=== PATIENT | male | born 1935 | race Caucasian/White ===

== ENCOUNTER 2023-09-09 05:18 | Outpatient (REF) | payer MEDICARE, SELFPAY ==
[2023-09-09 06:32] LABS: MANUAL DIFF FLAG NO
[2023-09-09 06:50] LABS: Basophils Percent Auto 0.7 % (0-2); Eosinophils Percent Auto 0.7 % (0-4); Hematocrit 38.6 % (42.0-52.0); Imm Gran Abs Auto 0.03 X10*3/uL (0.00-0.03); Imm Gran Pct Auto 0.6 % (0.0-0.4); Lymphocytes Absolute Auto 0.8 X10*3/uL (1.2-4.9); Lymphocytes Percent Auto 14.8 % (20-40); Mean Corpuscular HGB Conc 31.1 g/dl (31.0-36.0); Mean Corpuscular Hemoglobin 27.2 pg (27.0-33.0); Mean Corpuscular Volume 87.5 fL (80.0-98.0); Mean Platelet Volume 9.3 fL (9.4-12.4); Monocytes Absolute Auto 0.7 X10*3/uL (0.1-1.2); Monocytes Percent Auto 13.8 % (2-11); Neutrophils Absolute Auto 3.7 x10*3/uL (2.0-8.3); Neutrophils Percent Auto 69.4 % (45-73); Platelet Count 216 X10*3/uL (160-400); Red Blood Count 4.41 X10*6/uL (4.60-5.80); Red Cell Distribution Width 14.7 % (11.0-16.0); White Blood Count 5.4 X10*3/uL (4.8-10.8)
[2023-09-09 06:56] LABS: Alanine Aminotransferase 18 U/L (0-40); Albumin Level 3.8 g/dL (3.5-5.0); Alkaline Phosphatase 101 U/L (39-117); Anion Gap 14 (12-20); Aspartate Amino Transferase 19 U/L (5-37); Bilirubin Total 0.4 mg/dL (0.0-1.0); Blood Urea Nitrogen 47 mg/dL (9-16); Calcium 9.3 mg/dL (8.4-10.2); Carbon Dioxide 29 mmol/L (22-29); Chloride 102 mmol/L (96-108); Cholesterol 99 mg/dL (<200); Estimated Glomerular Filt Rate 35; Glucose Fasting 81 mg/dL (60-99); HDL Cholesterol 44 mg/dL (>40); LDL Cholesterol Calculated 40 mg/dL (<100); Magnesium 2.4 mg/dL (1.6-2.6); Potassium 4.6 mmol/L (3.3-5.1); Sodium 140 mmol/L (135-145); Total Protein 7.4 g/dL (6.5-8.0); Triglycerides 77 mg/dL (<150)
[2023-09-09 09:21] LABS: Erythrocyte Sedimentation Rate 44 MM/HR (0-15)
== END 2023-09-09 05:19 | disposition home or self-care (01) ==
LOC: HO.HSH4W 05:18
PROVIDERS: Visit Provider Internal Medicine
DX: N18.9 Chronic kidney disease, unspecified (principal); G62.9 Polyneuropathy, unspecified; G72.9 Myopathy, unspecified
CPT/HCPCS: 36415; 80053; 80061; 82550; 83735; 85025; 85652

== ENCOUNTER 2023-09-18 05:41 | Outpatient (REF) | payer MEDICARE, SELFPAY ==
[2023-09-18 06:11] LABS: Anion Gap 14 (12-20); Blood Urea Nitrogen 47 mg/dL (9-16); Calcium 9.6 mg/dL (8.4-10.2); Carbon Dioxide 28 mmol/L (22-29); Chloride 101 mmol/L (96-108); Estimated Glomerular Filt Rate 35; Glucose Fasting 74 mg/dL (60-99); Potassium 4.7 mmol/L (3.3-5.1); Sodium 138 mmol/L (135-145)
== END 2023-09-18 05:42 | disposition home or self-care (01) ==
LOC: HO.HSH4W 05:41
PROVIDERS: Visit Provider Internal Medicine
DX: N18.9 Chronic kidney disease, unspecified (principal); E11.9 Type 2 diabetes mellitus without complications
CPT/HCPCS: 36415; 80048

== ENCOUNTER 2023-09-30 05:17 | Outpatient (REF) | payer MEDICARE, SELFPAY ==
[2023-09-30 06:18] LABS: Anion Gap 13 (12-20); Blood Urea Nitrogen 58 mg/dL (9-16); Carbon Dioxide 29 mmol/L (22-29); Chloride 103 mmol/L (96-108); Estimated Glomerular Filt Rate 38; Glucose Fasting 76 mg/dL (60-99); Potassium 5.4 mmol/L (3.3-5.1); Sodium 140 mmol/L (135-145)
== END 2023-09-30 05:18 | disposition home or self-care (01) ==
LOC: HO.HSH4W 05:17
PROVIDERS: Visit Provider Internal Medicine
DX: I50.9 Heart failure, unspecified (principal); N18.9 Chronic kidney disease, unspecified
CPT/HCPCS: 36415; 80048

== ENCOUNTER 2023-10-06 09:41 | Inpatient (IN) | payer MEDICARE, SELFPAY ==
[2023-10-06] VITALS (7 sets, daily range): BP systolic 123–156; BP diastolic 60–93; PULSE 62–98; RESP 17–24; TEMP 35.7–36.6; O2SAT 80–95; BMI 31.8
--- NOTE | ~2023-10-06 | CT_ITS ---
EXAMINATION: CT CHEST WITHOUT CONTRAST CLINICAL INFORMATION: Abnormal chest x-ray COMPARISON: Ultrasound retroperitoneum 05/29/2023. TECHNIQUE: Multidetector volumetric CT imaging of the chest was done. Axial MIP volume rendering provided. Sagittal and coronal reformatted images were obtained. This CT examination was performed using dose optimization techniques as appropriate, variously including the following: *Automated exposure control *Adjustment of mA and/or kV according to patient size (this includes techniques or standardized protocols for targeted exams where dose is matched to indication/reason for exam; i.e. extremities or head) *Use of iterative reconstruction technique DLP: 385 mGy-cm FINDINGS: There is continuous patient breathing artifact throughout the exam. FLOOR FRAMER: Well-inflated lungs. LUNGS: The lungs are somewhat expanded with bilateral lower lobe consolidations/atelectasis with underlying bilateral pleural effusion. Groundglass opacities are seen throughout both upper and mid lobes likely related to chronic parenchymal disease no large nodule or mass seen. Mild atelectatic stranding is seen in right upper lobe and patchy infiltrate in the right middle lobe. MEDIASTINUM: Heart size is enlarged with aortic and mitral valve calcifications. No pericardial effusion seen. Central trachea and the bronchi are widely patent. The thyroid lobes are symmetrical and normal. No abnormal size mediastinal or hilar lymph nodes seen. CORONARY ARTERY CALCIFICATION: Mild coronary artery calcification seen. PLEURA: There are bilateral small pleural effusions without calcified pleural plaques or pneumothorax. AXILLA: No lymphadenopathy. The chest wall is unremarkable. UPPER ABDOMEN: Visualized liver, spleen, pancreas and bilateral adrenal glands unremarkable. There is hyperdense 2.3 cm exophytic lesion upper pole right kidney likely a complex cyst measuring 46 also units. OSSEOUS STRUCTURES: There is mild ventral spondylosis mid and lower dorsal spine. No aggressive lytic or sclerotic process seen. CT/CT chest wo IV con IMPRESSION: 1. Bilateral lower lobe consolidations/atelectasis with underlying small bilateral pleural effusions. 2. There is a patchy infiltrate in the right middle lobe. 3. There are diffuse groundglass opacities in both upper and mid lobes likely related to chronic lung disease. 4. Mild cardiomegaly with aortic and mitral valve calcifications. 5. Hyperdense exophytic lesion upper pole right kidney likely complex cyst. On recent ultrasound there was translucency seen in this cyst suggestive of benign etiology. If clinically indicated this can be evaluated with ultrasound. Fleischner guidelines were followed.
--- NOTE | ~2023-10-06 | XR_ITS ---
EXAMINATION: XR CHEST CLINICAL INFORMATION: Follow up after diuresis. COMPARISON: Chest radiograph 10/11/2023. TECHNIQUE: Frontal view of the chest was obtained. FINDINGS: Multifocal predominantly mid and lower lung airspace opacities are slightly decreased on the left side compared to 10/11/2023. Layering pleural effusions are improved. No pneumothorax. Stable prominence of the cardiomediastinal silhouette. No displaced osseous fractures. XR/XR chest 1V IMPRESSION: Mildly improved pulmonary aeration with decreased extension of multifocal airspace opacities and decreased layering pleural effusions, changes are more noticeable in the left lung. Continued follow-up recommended.
--- NOTE | ~2023-10-06 | XR_ITS ---
EXAMINATION: XR CHEST CLINICAL INFORMATION: Dyspnea COMPARISON: 10/08/2023 TECHNIQUE: Frontal view of the chest was obtained. FINDINGS: The lungs are hypoinflated. There is overall increasing opacity in the left perihilar region and base compared to prior. Perihilar and basilar right lung opacities appear similar to possibly slightly worsened. Overall appearance is suspicious for worsening edema. No evidence of pneumothorax. Small pleural effusions are present. Cardiac silhouette is enlarged. No acute osseous findings are seen. XR/XR chest 1V IMPRESSION: Findings suspicious for worsening pulmonary edema. Small pleural effusions. Enlarged cardiac silhouette.
--- NOTE | ~2023-10-06 | XR_ITS ---
EXAMINATION: XR CHEST CLINICAL INFORMATION: Hypoxia COMPARISON: Chest x-ray October 06, 2023. CT chest October 06, 2019 TECHNIQUE: Frontal portable view of the chest was obtained. 1801 hours FINDINGS: Diffuse bilateral patchy airspace opacities with central hilar vascular congestion. Findings suggest pulmonary edema congestive heart failure. Clinically correlate. Haziness at left lung base due to left pleural effusion. No significant right pleural effusion. XR/XR chest 1V IMPRESSION: Diffuse bilateral patchy airspace opacities with central hilar vascular congestion. Findings suggest pulmonary edema congestive heart failure.
--- NOTE | ~2023-10-06 | XR_ITS ---
EXAMINATION: XR CHEST CLINICAL INFORMATION: Chest 02/26/2016 COMPARISON: None available. TECHNIQUE: Frontal view of the chest was obtained. FINDINGS: The lungs are hypoexpanded with patchy opacities in left midlung, left lower lobe and right midlung likely interstitial pneumonitis. There is increased density left lung base likely consolidation. Heart size is borderline enlarged. Pulmonary vascularity is prominent. Mild spondylosis lower dorsal spine. XR/XR chest 1V IMPRESSION: 1. Bilateral patchy opacities likely interstitial pneumonitis. There is left lower lobe consolidation. 2. There is mild cardiomegaly with mild pulmonary vascular congestion suspected. 3. The above findings are new since 02/26/2016
--- NOTE | ~2023-10-06 | XR_ITS ---
EXAMINATION: XR CHEST CLINICAL INFORMATION: Worsening oxygen saturation COMPARISON: 10/12/2023 TECHNIQUE: Frontal view of the chest was obtained. FINDINGS: Lung volumes are symmetric. There is interval increase in extensive bilateral airspace opacities compared to prior, with perihilar and basilar predominance. No appreciable pneumothorax. Small pleural effusions are present. Cardiac silhouette is enlarged without not well assessed due to the bilateral opacities. Calcification is present at the aortic arch. No acute osseous findings are seen. XR/XR chest 1V IMPRESSION: Interval increase in extensive bilateral airspace opacities compared to prior, which may represent worsening edema in the proper clinical setting. Small pleural effusions.
--- NOTE | 2023-10-06 09:58 | ED_ITS ---
HPI - SOB/Dyspnea General Chief Complaint: Dyspnea Stated Complaint: SOB 97% ON NRB, [facility] PER EMS Time Seen by Provider: 10/06/23 09:58 Source: EMS Mode of arrival: EMS Limitations: no limitations History of Present Illness HPI Narrative: This is 88 years old male presented to emergency department with shortness of breath, he arrived with high-flow oxygen and% non-rebreather mask. He has history of congestive heart failure MD elicited complaint: shortness of breath Pertinent past history: congestive heart failure Onset (ago): day(s) (1) Timing: constant Severity: severe Exacerbating factors: nothing Known history of: congestive heart failure Associated symptoms: denies other symptoms Related Data Home oxygen amount: 2 liters Home Medications Medication Instructions Recorded Confirmed acetaminophen 325 mg tablet 650 mg PO Q4H PRN Pain 03/06/23 10/06/23 aripiprazole 10 mg tablet 10 mg PO BEDTIME 03/06/23 10/06/23 bisacodyl 10 mg rectal suppository 10 mg WV DAILY PRN Constipation 03/06/23 10/06/23 clotrimazole 1 % topical cream 1 appl topical BID PRN Rash 03/06/23 10/06/23 cyanocobalamin (vitamin B-12) 1,000 mcg IM QMONTH@14 03/06/23 10/06/23 1,000 mcg/mL injection kit gabapentin 300 mg capsule 300 mg PO BID 03/06/23 10/06/23 levothyroxine 112 mcg tablet 112 mcg PO DAILY 03/06/23 10/06/23 loperamide 2 mg tablet 2 mg PO QID PRN Diarrhea 03/06/23 10/06/23 (Anti-Diarrheal (loperamide)) magnesium hydroxide 400 mg/5 mL 2,400 mg PO BEDTIME PRN Laxative 03/06/23 10/06/23 oral suspension (Dulcolax Effect (magnesium hydroxide)) metformin 500 mg tablet 500 mg PO DAILY 03/06/23 10/06/23 nifedipine 30 mg tablet,extended 30 mg PO DAILY 03/06/23 10/06/23 release nifedipine 60 mg tablet,extended 60 mg PO DAILY 03/06/23 10/06/23 release polyvinyl alcohol 1.4 % eye drops 1 drp ophthalmic (eye) TID-QID PRN 03/06/23 10/06/23 Dry Eyes sodium phosphates 19 gram-7 133 ml WV DAILY PRN Constipation 03/06/23 10/06/23 gram/118 mL enema (Fleet Enema) aripiprazole 30 mg tablet 30 mg PO DAILY 10/06/23 10/06/23 atorvastatin 40 mg tablet 40 mg PO BEDTIME 10/06/23 10/06/23 dapagliflozin propanediol 5 mg 5 mg PO DAILY 10/06/23 10/06/23 tablet (Farxiga) gabapentin 400 mg capsule 400 mg PO BEDTIME 10/06/23 10/06/23 lamotrigine 25 mg tablet 50 mg PO DAILY 10/06/23 10/06/23 lidocaine 4 % topical patch 2 patch topical DAILY PRN Pain 10/06/23 10/06/23 torsemide 20 mg tablet 20 mg PO DAILY@1700 10/06/23 10/06/23 torsemide 40 mg tablet 40 mg PO DAILY@0600 10/06/23 10/06/23 Allergies Allergy/AdvReac Type Severity Reaction Status Date / Time No Known Allergies Allergy Mild NONE Verified 03/05/23 20:39 Review of Systems 2 Constitutional: Constitutional: Reports no additional constitutional complaints ENT: Reports system reviewed and no additional complaints, except as documented Cardiovascular: Cardiovascular: Reports dyspnea Respiratory: Respiratory: Reports dyspnea PMFSH Past Medical History Attestation statement: The following information was validated with the patient. Source: unable to obtain Medical History Unspecified hearing loss, unspecified ear Spinal stenosis, lumbar region without neurogenic claudication Spinal stenosis, 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 Constipation, unspecified Diarrhea, unspecified Spondylosis without myelopathy or radiculopathy, lumbar region Unspecified dementia, unspecified severity, without behavioral disturbance, psychotic disturbance, mood disturbance, and anxiety Other intervertebral disc degeneration, lumbar region Schizoaffective disorder, unspecified Impacted cerumen, left ear Unspecified osteoarthritis, unspecified site Chronic kidney disease, stage 3 unspecified Type 2 diabetes mellitus without complications Gastro-esophageal reflux disease without esophagitis Personal history of COVID-19 Bradycardia, unspecified Cyst of kidney, acquired Deficiency of other specified B group vitamins Type 2 diabetes mellitus with diabetic neuropathy, unspecified Hyperlipidemia, unspecified Other schizophrenia Iron deficiency anemia, unspecified Vertebral artery compression syndromes, site unspecified Other spondylosis with radiculopathy, lumbar region Anemia, unspecified Nutritional anemia, unspecified Radiculopathy, lumbar region Essential (primary) hypertension Benign prostatic hyperplasia without lower urinary tract symptoms Anterior spinal artery compression syndromes, lumbar region Schizophrenia, unspecified Low back pain, unspecified Obesity, unspecified Dorsalgia, unspecified Hypothyroidism, unspecified Diabetes Social History Social History Alcohol intake: unknown Smoked in Last 30 Days: No Use of substances other than those prescribed or required for medical reasons: No Advance Directives: Yes Advance Directives on File: Yes Advance Directives Date on File: 10/06/23 Physical Exam 2 Vital Signs: Vital Signs: Last Vital Signs Temp 97.7 F 10/06/23 09:59 Pulse 63 10/06/23 15:51 Resp 20 10/06/23 15:51 BP 129/93 H 10/06/23 14:18 Pulse Ox 92 10/06/23 14:18 O2 Del Method Nasal Cannula 10/06/23 14:18 O2 Flow Rate 6 10/06/23 14:18 Oxygen Flow Rate 15 10/06/23 09:47 BMI result Body Mass Index 31.8 Const: General: cooperative Nutritional Appearance: well nourished O rientation/consciousness: patient oriented x3 Limitations: no limitations HEENT: Head: Yes normal to inspection General nose exam: Normal external nose present Face and sinus: Yes normal facial exam Mouth: Normal oral and palatal mucosa present Neck: Neck: Yes normal visual inspection and Yes full ROM Chest: Chest palpation & inspection: normal inspection of the chest Resp: Effort & Inspection: decreased respiratory effort Auscultation: r honchi Cardio: Jugular venous distension: no JVD Rate: regular rate Rhythm: r egular rhythm GI: Inspection: Yes normal to inspection Palpation (GI): Soft to palpation, not firm and nontender Skin: General skin exam: no rashes or lesions noted Lesions: no lesions Rashes: no rashes Neuro: General: patient oriented x3 Medications Administered Generic Name Dose Route Start Last Admin Trade Name Freq PRN Reason Stop Dose Admin Albuterol/Ipratropium 3 ml 10/06/23 16:00 10/06/23 15:50 Albuterol/Iprat 2.5/0.5mg 3 Ml Ampul.Neb INHALE 3 ml RQ4H WHILE AWAKE MYRON Administration Enoxaparin Sodium 30 mg 10/06/23 15:15 10/06/23 15:48 Enoxaparin Sodium 30 Mg/0.3 Ml Syringe SUBCUT 30 mg Q24H MYRON Administration Piperacillin Sod/Tazobactam 100 mls @ 200 mls/hr 10/06/23 15:30 10/06/23 15:48 Sod 4.5 gm/ Sodium Chloride IV 200 mls/hr Q8H MYRON Administration Sodium Chloride 3 ml 10/06/23 16:00 10/06/23 15:51 0.9 % Sodium Chloride Flush 3 Ml Syringe IVFLUSH Not Given QSHIFT MYRON Discontinued Medications Generic Name Dose Route Start Last Admin Trade Name Freq PRN Reason Stop Dose Admin Furosemide 40 mg 10/06/23 10:09 10/06/23 10:18 Furosemide 40 Mg/4 Ml Vial IVPUSH 10/06/23 10:10 40 mg ONCE ONE Administration Protocol Medical Decision Making Medical Decision Making [facility] Narrative: Patient presents to the emergency department with a chief complaint of shortness of breath by ambulance on high-flow oxygen, will obtain chest x-ray EKG labs reassess working diagnosis congestive heart failure Differential Diagnosis Differential Diagnoses: The differential diagnosis associated with the presentation includes CHF/pneumonia/COVID Admission/Observation Consideration of admission/observation: Escalation of care including admission/observation considered Lab Data 10/06/23 10:02 10/06/23 10:02 Labs: Lab Results 10/06/23 10/06/23 Range/Units 10:02 10:05 WBC 6.8 (4.8-10.8) X10*3/uL RBC 4.56 L (4.60-5.80) X10*6/uL Hgb 12.3 L (14.0-18.0) g/dl Hct 41.2 L (42.0-52.0) % MCV 90.4 (80.0-98.0) fL MCH 27.0 (27.0-33.0) pg MCHC 29.9 L (31.0-36.0) g/dl RDW 15.4 (11.0-16.0) % Plt Count 201 (160-400) X10*3/uL MPV 9.1 L (9.4-12.4) fL Immature Gran % (Auto) 1.0 H (0.0-0.4) % Neut % (Auto) 82.6 H (45-73) % Lymph % (Auto) 6.7 L (20-40) % Rock % (Auto) 8.4 (2-11) % Eos % (Auto) 0.6 (0-4) % Baso % (Auto) 0.7 (0-2) % Lymph # (Auto) 0.5 L (1.2-4.9) X10*3/uL Rock # (Auto) 0.6 (0.1-1.2) X10*3/uL Eos # (Auto) 0.0 (0.0-0.4) X10*3/uL Baso # (Auto) 0.1 (0.0-0.2) X10*3/uL Abs Immat Gran (auto) 0.07 H (0.00-0.03) X10*3/uL Absolute Neuts (auto) 5.6 (2.0-8.3) x10*3/uL Absolute Nucleated RBC 0.000 (0.0-0.012) X10*3/uL Nucleated RBC % (auto) 0.0 (0.0-0.2) /100WBC PT 11.9 (11.1-13.3) SEC INR 1.0 (0.9-1.1) Hold Blue Top SEE NOTE Sodium 138 (135-145) mmol/L Potassium 5.1 (3.3-5.1) mmol/L Chloride 98 (96-108) mmol/L Carbon Dioxide 32 H (22-29) mmol/L Anion Gap 13 (12-20) BUN 45 H (9-16) mg/dL Creatinine 1.87 H (0.5-1.4) mg/dL Estim Creat Clear Calc 30.8 Estimated GFR 34 Random Glucose 107 (60-115) mg/dL Calcium 9.9 D (8.4-10.2) mg/dL Total Bilirubin 0.6 (0.0-1.0) mg/dL AST 17 (5-37) U/L ALT 17 (0-40) U/L Alkaline Phosphatase 131 H (39-117) U/L Troponin I High Sens 10.4 (<3.5-35.0) ng/L B-Natriuretic Peptide 121 H (<100) pg/mL Total Protein 8.7 H (6.5-8.0) g/dL Albumin 4.4 (3.5-5.0) g/dL Influenza Type A (PCR) NEGATIVE (Negative) Influenza Type B (PCR) NEGATIVE (Negative) RSV RNA Qual (PCR) NEGATIVE (Negative) SARS-CoV-2 RNA (RT-PCR) NEGATIVE (Negative) Critical Care Time Critical Care Time Critical Care Time: Yes Total Critical Care Time: 60 Attestation: SOB requiring high flow 02 Discharge Plan Discharge Clinical Impression: Shortness of breath Pneumonia Qualifiers: Pneumonia type: due to unspecified organism Patient Disposition: Admitted As Inpatient
--- NOTE | 2023-10-06 10:00 | ECG_ITS ---
Test Reason : CHEST PAIN Blood Pressure : / mmHG Vent. Rate : 069 BPM Atrial Rate : 069 BPM P-R Int : 214 ms QRS Dur : 168 ms QT Int : 430 ms P-R-T Axes : -20 -21 017 degrees QTc Int : 460 ms Sinus rhythm with 1st degree A-V block Right bundle branch block Abnormal ECG When compared with ECG of 24-FEB-2016 06:31, No significant changes seen Referred By: Anam Fulton Electronically Signed By:KELLEY ESPINOSA
--- NOTE | 2023-10-06 10:08 | PC.NURSE ---
Pt presents to ED from [facility] via EMS. EMS reports staff found pts SPO2 to be in the 80s this morning on his baseline 2L O2. Pt has hx of CHF. EMS placed pt on 15L via NRB with improvements to high 90s. Pt reports cough and SOB this morning, denies any pain. Pt denies fever, chills, N/V/D. Pt alert and oriented, breathing even and noted to be labored, pt has difficulty speaking in full sentences. Skin clammy. Pt placed on bedside security monitor, NSR. RA SPO2 noted to be 79%, per MD pt placed on NC at 5L O2 and improves to 88-90%. No pitting edema noted to bilat lower legs.
[2023-10-06 10:09] LABS: MANUAL DIFF FLAG NO
[2023-10-06 10:12] LABS: Basophils Absolute Auto 0.1 X10*3/uL (0.0-0.2); Basophils Percent Auto 0.7 % (0-2); Eosinophils Percent Auto 0.6 % (0-4); Hematocrit 41.2 % (42.0-52.0); Hemoglobin 12.3 g/dl (14.0-18.0); Imm Gran Abs Auto 0.07 X10*3/uL (0.00-0.03); Lymphocytes Absolute Auto 0.5 X10*3/uL (1.2-4.9); Lymphocytes Percent Auto 6.7 % (20-40); Mean Corpuscular HGB Conc 29.9 g/dl (31.0-36.0); Mean Corpuscular Volume 90.4 fL (80.0-98.0); Mean Platelet Volume 9.1 fL (9.4-12.4); Monocytes Absolute Auto 0.6 X10*3/uL (0.1-1.2); Monocytes Percent Auto 8.4 % (2-11); Neutrophils Absolute Auto 5.6 x10*3/uL (2.0-8.3); Neutrophils Percent Auto 82.6 % (45-73); Platelet Count 201 X10*3/uL (160-400); Red Blood Count 4.56 X10*6/uL (4.60-5.80); Red Cell Distribution Width 15.4 % (11.0-16.0); White Blood Count 6.8 X10*3/uL (4.8-10.8)
[2023-10-06] MEDS: Furosemide 40 MG/4 ML VIAL IVPUSH (10:18)
[2023-10-06 10:20] LABS: Prothrombin Time 11.9 SEC (11.1-13.3)
[2023-10-06 10:28] LABS: Alanine Aminotransferase 17 U/L (0-40); Albumin Level 4.4 g/dL (3.5-5.0); Alkaline Phosphatase 131 U/L (39-117); Anion Gap 13 (12-20); Aspartate Amino Transferase 17 U/L (5-37); Bilirubin Total 0.6 mg/dL (0.0-1.0); Blood Urea Nitrogen 45 mg/dL (9-16); Calcium 9.9 mg/dL (8.4-10.2); Carbon Dioxide 32 mmol/L (22-29); Chloride 98 mmol/L (96-108); Creatinine Clr Calc Pharmacy 30.8; Estimated Glomerular Filt Rate 34; Glucose Random 107 mg/dL (60-115); Potassium 5.1 mmol/L (3.3-5.1); Sodium 138 mmol/L (135-145); Total Protein 8.7 g/dL (6.5-8.0)
[2023-10-06 10:33] LABS: B Type Natriuretic Peptide 121 pg/mL (<100)
[2023-10-06 10:35] LABS: Troponin-I High Sensitivity 10.4 ng/L (<3.5-35.0)
[2023-10-06 10:48] LABS: Influenza A PCR NEGATIVE (Negative); Influenza B PCR NEGATIVE (Negative); Resp Syncy Virus RNA Qual PCR NEGATIVE (Negative); SARS COV2 PCR INHOUSE NEGATIVE (Negative)
--- NOTE | 2023-10-06 11:51 | PC.NURSE ---
Pt sleeping in bed at this time, appears comfortable. No acute resp distress noted, SPO2 on 5L NC maintaining 92-94%.
--- NOTE | 2023-10-06 12:09 | PC.NURSE ---
Pt taken to CT scan
--- NOTE | 2023-10-06 12:41 | PC.NURSE ---
Pt placed on nascimento w/ humidification d/t 5-6L NC requirement, Pt tolerating well at this time, currently resting comfortably, sating 88-92%
--- NOTE | 2023-10-06 15:21 | P.HPHOSP_ITS ---
<Statement entered by Ela Ibarra MD - 10/06/23 16:18> The patient was seen and evaluated with PAULINO Finney. I agree with her note, assessment and plan with the following. In summary, An 88 years old lady with PMH of CKD3, DM2, gout, dementia among others who presents with dyspnea and SOB. [facility] she was noted to have O2 sat in 80s%. CT scan showing bilateral infitrates with effusions. admitted for further eval. # Acute hypoxemic respiratory failure 2/2 bilateral pneumonia risk of aspiration, aspiration precautions pending cultures IV zosyn Duonebs Lasix for the effusion Wean O2 down as tolerated Rest of evaluations by PAULINO note. History of Present Illness Date of Service: 10/06/23 Attending physician on admission: Ela Ibarra Chief Complaint: sob, hypoxia 88 year old male with hitory of non insulin dependent type 2 diabetes, htn, hypothyroidism, lumbar stenosis, lumbar ddd, ckd stage 3, gout, gerd, schizoaffective disorder, unspecified dementia who is a former smoker presented to the ED from [facility] for evaluation of dyspnea and hypoxia. The patient is a poor historian 2/2 to his dementia but does report dyspnea ongoing for several weeks. unknown sick contacts. No fevers, chills, cough, chest pain. No abd pain, n/v. Per EMS, on arrival, pt hypoxic in the 80s placed on 15L via non rebreather. On arrival to ED, pt weaned to 6L O2 via NC maintaining oximetry 92%. Vitals otherwise stable. No leukocytosis. Stable normocytic anemia. Renal function baseline. Lytes normal. BNP 121, trop below detectable limits. Negative for Flu, RSV, COVID19. Chest CT shows bilateral lower lobe consolidations with underlying small bilateral pleural effusions as well as patchy infiltrate RML. Groundglass opacities present in BUL and mid lobes r/t chronic lung disease. In the ED given 40mg IV lasix and started on empiric abx. Review of Systems 2 Review of Systems: General: No fevers, malaise, unintentional weight loss HEENT: No blurred vision, diplopia. No sore throat, nasal congestion, rhinorrhea, sinus pain, ear pain Cardiovascular: No chest pain, palpitations, or leg edema Respiratory: +dyspnea. No wheezing, cough GI: No abdominal pain, nausea, vomiting, diarrhea, constipation, melena, hematochezia : No dysuria, hematuria, increased urinary frequency, decreased urinary output MSK: No myalgia, back pain Neuro: No headaches, weakness, paresthesias Skin: No rashes or lesions [facility] Medical History (Updated 10/06/23 @ 16:11 by PAULINO Finney) Acute hypoxemic respiratory failure Unspecified hearing loss, unspecified ear Spinal stenosis, lumbar region without neurogenic claudication Spinal stenosis, 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 Constipation, unspecified Diarrhea, unspecified Spondylosis without myelopathy or radiculopathy, lumbar region Unspecified dementia, unspecified severity, without behavioral disturbance, psychotic disturbance, mood disturbance, and anxiety Other intervertebral disc degeneration, lumbar region Schizoaffective disorder, unspecified Impacted cerumen, left ear Unspecified osteoarthritis, unspecified site Chronic kidney disease, stage 3 unspecified Type 2 diabetes mellitus without complications Gastro-esophageal reflux disease without esophagitis Personal history of COVID-19 Bradycardia, unspecified Cyst of kidney, acquired Deficiency of other specified B group vitamins Type 2 diabetes mellitus with diabetic neuropathy, unspecified Hyperlipidemia, unspecified Other schizophrenia Iron deficiency anemia, unspecified Vertebral artery compression syndromes, site unspecified Other spondylosis with radiculopathy, lumbar region Anemia, unspecified Nutritional anemia, unspecified Radiculopathy, lumbar region Essential (primary) hypertension Benign prostatic hyperplasia without lower urinary tract symptoms Anterior spinal artery compression syndromes, lumbar region Schizophrenia, unspecified Low back pain, unspecified Obesity, unspecified Dorsalgia, unspecified Hypothyroidism, unspecified Diabetes Social History Alcohol intake: unknown Smoked in Last 30 Days: No Use of substances other than those prescribed or required for medical reasons: No Advance Directives: Yes Advance Directives on File: Yes Advance Directives Date on File: 10/06/23 Meds Allergies Allergy/AdvReac Type Severity Reaction Status Date / Time No Known Allergies Allergy Mild NONE Verified 03/05/23 20:39 Home Medications Medication Instructions Recorded Confirmed Last Taken Type acetaminophen 325 mg tablet 650 mg PO Q4H PRN Pain 03/06/23 10/06/23 Unknown History aripiprazole 10 mg tablet 10 mg PO BEDTIME 03/06/23 10/06/23 Unknown History bisacodyl 10 mg rectal suppository 10 mg NC DAILY PRN Constipation 03/06/23 10/06/23 Unknown History clotrimazole 1 % topical cream 1 appl topical BID PRN Rash 03/06/23 10/06/23 Unknown History cyanocobalamin (vitamin B-12) 1,000 mcg IM QMONTH@14 03/06/23 10/06/23 Unknown History 1,000 mcg/mL injection kit gabapentin 300 mg capsule 300 mg PO BID 03/06/23 10/06/23 Unknown History levothyroxine 112 mcg tablet 112 mcg PO DAILY 03/06/23 10/06/23 Unknown History loperamide 2 mg tablet 2 mg PO QID PRN Diarrhea 03/06/23 10/06/23 Unknown History (Anti-Diarrheal (loperamide)) magnesium hydroxide 400 mg/5 mL 2,400 mg PO BEDTIME PRN Laxative 03/06/23 10/06/23 Unknown History oral suspension (Dulcolax Effect (magnesium hydroxide)) metformin 500 mg tablet 500 mg PO DAILY 03/06/23 10/06/23 Unknown History nifedipine 30 mg tablet,extended 30 mg PO DAILY 03/06/23 10/06/23 Unknown History release nifedipine 60 mg tablet,extended 60 mg PO DAILY 03/06/23 10/06/23 Unknown History release polyvinyl alcohol 1.4 % eye drops 1 drp ophthalmic (eye) TID-QID PRN 03/06/23 10/06/23 Unknown History Dry Eyes sodium phosphates 19 gram-7 133 ml NC DAILY PRN Constipation 03/06/23 10/06/23 Unknown History gram/118 mL enema (Fleet Enema) aripiprazole 30 mg tablet 30 mg PO DAILY 10/06/23 10/06/23 Unknown History atorvastatin 40 mg tablet 40 mg PO BEDTIME 10/06/23 10/06/23 Unknown History dapagliflozin propanediol 5 mg 5 mg PO DAILY 10/06/23 10/06/23 Unknown History tablet (Farxiga) gabapentin 400 mg capsule 400 mg PO BEDTIME 10/06/23 10/06/23 Unknown History lamotrigine 25 mg tablet 50 mg PO DAILY 10/06/23 10/06/23 Unknown History lidocaine 4 % topical patch 2 patch topical DAILY PRN Pain 10/06/23 10/06/23 Unknown History torsemide 20 mg tablet 20 mg PO DAILY@1700 10/06/23 10/06/23 Unknown History torsemide 40 mg tablet 40 mg PO DAILY@0600 10/06/23 10/06/23 Unknown History Physical Exam 2 Vital Signs and Narrative: Vital Signs: Last Vital Signs Temp 97.7 F 10/06/23 09:59 Pulse 68 10/06/23 14:18 Resp 17 10/06/23 14:18 BP 129/93 H 10/06/23 14:18 Pulse Ox 92 10/06/23 14:18 O2 Del Method Nasal Cannula 10/06/23 14:18 O2 Flow Rate 6 10/06/23 14:18 Oxygen Flow Rate 15 10/06/23 09:47 BMI result Body Mass Index 31.8 Constitutional - Awake and Alert, No apparent distress Eyes - PERRLA, EOMI Cardiovascular - S1S2, RRR, No edema Respiratory - Normal lung expansion, Normal respiratory effort, No respiratory distress, bilateral rhonchi with scattered expiratory wheezing Gastrointestinal - NT / ND; +BS; No rebound or guarding Extremities - no calf tenderness bilaterally, no swelling Skin - Warm/Dry Neurological - Alert & oriented x3 Psychological - Appropriate affect Results Labs 10/06/23 10:02 10/06/23 10:02 Labs: Laboratory Results - last 24 hr 10/06/23 10/06/23 10:02 10:05 MCV 90.4 MCH 27.0 MCHC 29.9 L RDW 15.4 Plt Count 201 MPV 9.1 L Immature Gran % (Auto) 1.0 H Neut % (Auto) 82.6 H Lymph % (Auto) 6.7 L Jenkins % (Auto) 8.4 Eos % (Auto) 0.6 Baso % (Auto) 0.7 Lymph # (Auto) 0.5 L Jenkins # (Auto) 0.6 Eos # (Auto) 0.0 Baso # (Auto) 0.1 Abs Immat Gran (auto) 0.07 H Absolute Neuts (auto) 5.6 Absolute Nucleated RBC 0.000 Nucleated RBC % (auto) 0.0 PT 11.9 INR 1.0 Hold Blue Top SEE NOTE Anion Gap 13 Estim Creat Clear Calc 30.8 Estimated GFR 34 Random Glucose 107 Calcium 9.9 D Total Bilirubin 0.6 AST 17 ALT 17 Alkaline Phosphatase 131 H Troponin I High Sens 10.4 B-Natriuretic Peptide 121 H Total Protein 8.7 H Albumin 4.4 Influenza Type A (PCR) NEGATIVE Influenza Type B (PCR) NEGATIVE RSV RNA Qual (PCR) NEGATIVE SARS-CoV-2 RNA (RT-PCR) NEGATIVE Imaging Radiologist's Impressions: Impressions Chest X-Ray 10/06/23 10:20 IMPRESSION: 1. Bilateral patchy opacities likely interstitial pneumonitis. There is left lower lobe consolidation. 2. There is mild cardiomegaly with mild pulmonary vascular congestion suspected. 3. The above findings are new since 02/26/[address] 10/06/23 12:28 IMPRESSION: 1. Bilateral lower lobe consolidations/atelectasis with underlying small bilateral pleural effusions. 2. There is a patchy infiltrate in the right middle lobe. 3. There are diffuse groundglass opacities in both upper and mid lobes likely related to chronic lung disease. 4. Mild cardiomegaly with aortic and mitral valve calcifications. 5. Hyperdense exophytic lesion upper pole right kidney likely complex cyst. On recent ultrasound there was translucency seen in this cyst suggestive of benign etiology. If clinically indicated this can be evaluated with ultrasound. Fleischner guidelines were followed. Assessment and Plan (1) Pneumonia: Qualifiers: Laterality: bilateral Lung location: unspecified part of lung P neumonia type: due to unspecified organism Qualified Code(s): J18.9 - Pneumonia, unspecified organism Status: Acute (2) Acute hypoxemic respiratory failure: Status: Acute Plan 88 year old male with hitory of non insulin dependent type 2 diabetes, htn, hypothyroidism, lumbar stenosis, lumbar ddd, ckd stage 3, gout, gerd, schizoaffective disorder, unspecified dementia admitted for bilateral pneumonia with acute hypoxemic respiratory failure. #bilateral pneumonia with acute hypoxemic respiratory failure -chest ct shows bilateral lower lobe consolidations and RML infiltrate. Groundglass opacities b/l possible chronic lung disease (outpt follow up) -IV zosyn -mrsa nasal swab, strep pneumo ag, legionella ag, sputum culture pending -symptomatic management -duonebs -monitor cbc, cultures #Non insulin depedent type 2 diabetes -poc glucose, diabetic diet -humalog sliding scale -hold oral antihyperglycemics #HTN -bp reasonably controlled -continue nifedipine, torsemide # chronic low back pain -continue gabapentin, lidocaine patch #Hypothyroidism -continue levothyroxine # hyperlipidemia -continue statin #Chronic normocytic anemia -h/h above transfusion threshold and consistent with baseline # unspecified dementia with mood disturbance -continue home meds DVT prophylaxis-Lovenox DNR/DNI Patient requires inpatient stay at least 2 midnights for management of acute bilateral pneumonia with acute hypoxemic respiratory failure requiring IV antibiotics and supplemental O2 Quality Stroke Does the patient have a stroke diagnosis?: No VTE Prior VTE?: No VTE Risk Level:: Medical - moderate - high VTE Device Contraindication: Treatment Not Indicated VTE Drug Contraindication: N/A - Med Ordered
[2023-10-06] MEDS: Piperacillin Sodium/Tazobactam 4.5 GM in 0.9 % Sodium Chloride 100 ML IV (15:48)
[2023-10-06] MEDS: Enoxaparin Sodium 30 MG/0.3 ML SYRINGE SUBCUT (15:48)
[2023-10-06] MEDS: Albuterol/Iprat 2.5/0.5MG 3 ML AMPUL.NEB INHALE ×2 (15:50→20:11)
--- NOTE | 2023-10-06 16:46 | PHA.MEDREC ---
Pharmacy Consult ? Medication Reconciliation Pharmacy has completed the medication reconciliation. Confirmed medication with Med list from [facility] with list printed 10/06/23.
--- NOTE | 2023-10-06 19:31 | PC.NURSE ---
assumed care of pt at 1900, O2 desatting to 78% - on exam pt disconnected O2 line - reconnected, O2 improved to low 90s on 6L humidified O2. pt denies any pain at this time. understands need for urine sample. pt pending bed assignment.
[2023-10-06 21:36] LABS: Glucose, Whole Blood 152 mg/dL (60-115)
[2023-10-06] MEDS: ARIPiprazole 10 MG TABLET PO (21:41)
[2023-10-06] MEDS: Insulin Lispro 100 UNIT/ML 3 ML VIAL SUBCUT (21:41)
[2023-10-06] MEDS: Gabapentin 400 MG CAPSULE PO (21:41)
[2023-10-06] MEDS: Atorvastatin Calcium 40 MG TABLET PO (21:41)
[2023-10-07] VITALS (8 sets, daily range): BP systolic 123–148; BP diastolic 60–70; PULSE 67–86; RESP 17–20; TEMP 36.1–37; O2SAT 91–92
[2023-10-07] MEDS: Piperacillin Sodium/Tazobactam 4.5 GM in 0.9 % Sodium Chloride 100 ML IV ×4 (00:03→22:45)
[2023-10-07] MEDS: 0.9 % Sodium Chloride Flush 3 ML SYRINGE IVFLUSH ×4 (00:09→23:30)
[2023-10-07 05:39] LABS: MANUAL DIFF FLAG NO
[2023-10-07 05:47] LABS: Basophils Percent Auto 0.6 % (0-2); Eosinophils Percent Auto 0.5 % (0-4); Hematocrit 36.4 % (42.0-52.0); Imm Gran Abs Auto 0.03 X10*3/uL (0.00-0.03); Imm Gran Pct Auto 0.5 % (0.0-0.4); Lymphocytes Absolute Auto 0.4 X10*3/uL (1.2-4.9); Lymphocytes Percent Auto 5.9 % (20-40); Mean Corpuscular HGB Conc 30.2 g/dl (31.0-36.0); Mean Corpuscular Volume 89.4 fL (80.0-98.0); Mean Platelet Volume 9.1 fL (9.4-12.4); Monocytes Absolute Auto 0.6 X10*3/uL (0.1-1.2); Monocytes Percent Auto 8.9 % (2-11); Neutrophils Absolute Auto 5.3 x10*3/uL (2.0-8.3); Neutrophils Percent Auto 83.6 % (45-73); Platelet Count 182 X10*3/uL (160-400); Red Blood Count 4.07 X10*6/uL (4.60-5.80); Red Cell Distribution Width 15.6 % (11.0-16.0); White Blood Count 6.3 X10*3/uL (4.8-10.8)
[2023-10-07 06:02] LABS: Anion Gap 12 (12-20); Blood Urea Nitrogen 41 mg/dL (9-16); Calcium 9.3 mg/dL (8.4-10.2); Carbon Dioxide 35 mmol/L (22-29); Chloride 99 mmol/L (96-108); Creatinine Clr Calc Pharmacy 32.4; Estimated Glomerular Filt Rate 36; Glucose Random 72 mg/dL (60-115); Potassium 5.4 mmol/L (3.3-5.1); Sodium 141 mmol/L (135-145)
[2023-10-07] MEDS: Gabapentin 300 MG CAPSULE PO (06:02)
[2023-10-07] MEDS: Levothyroxine Sodium 112 MCG TABLET PO (06:02)
[2023-10-07] MEDS: Torsemide 20 MG TABLET 40 MG PO (06:02)
[2023-10-07] MEDS: Albuterol/Iprat 2.5/0.5MG 3 ML AMPUL.NEB INHALE ×4 (07:38→20:11)
[2023-10-07 07:40] LABS: Glucose, Whole Blood 71 mg/dL (60-115)
[2023-10-07] MEDS: Sodium Zirconium Cyclosilicate 10 GM POWD.PACK PO (07:53)
--- NOTE | 2023-10-07 09:42 | MHC.CM.PN ---
PT W/ DX DEMENTIA & SCHIZOPHRENIA. 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 IMM VERBALLY DELIVERED - COPY TO BE MAILED. 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 AMBULATES W/ A WALKER, USES W/C PRN. DEPENDENT IN ALL CARE. PCP DIONNE TRAORE MD HCP & MOLST ON FILE DP: RESUME LTC @ [facility] VIA BLS. CM WILL CONTINUE TO FOLLOW.
[2023-10-07] MEDS: ARIPiprazole 30 MG TABLET PO (10:12)
[2023-10-07] MEDS: lamoTRIgine 25 MG TABLET 50 MG PO (10:12)
[2023-10-07] MEDS: NIFEdipine ER 90 MG TAB.ER.24 PO (10:12)
--- NOTE | 2023-10-07 10:48 | HO.PM.IMPN ---
Subjective Subjective Date of Service: 10/07/23 Interval History: Seen and evaluated this morning Feels generally better Dyspnea improved Denies fever or chills tolerating diet On O2 supplement Review of Systems Review of Systems: Yes all other systems are reviewed and are negative Physical Exam Vital Signs: Vital Signs: Last Vital Signs Temp 98.2 F 10/07/23 07:40 Pulse 86 10/07/23 07:43 Resp 20 10/07/23 07:43 BP 148/69 H 10/07/23 07:40 Pulse Ox 92 10/07/23 07:40 O2 Del Method Nasal Cannula 10/07/23 07:40 O2 Flow Rate 7.0 10/07/23 07:40 Oxygen Flow Rate 15 10/06/23 09:47 BMI result Body Mass Index 31.8 Const: Other: Constitutional : Awake, interactive, not in distress Neck : Normal inspection, Supple Cardiovascular : RRR, no JVP, no lower extremity edema Respiratory : fair bilateral air entry, basal fine crackles bilaterally, no wheezes , On O2 supplement Gastrointestinal: soft, lax, Normal bowel sounds, Non tender Skin : Warm, Dry Neurological : Alert & oriented to self and place only, No focal deficit Objective Data Active Medications Acetaminophen (Acetaminophen 325 Mg Tablet) 650 mg PO Q6H PRN PRN Reason: Pain, Mild (Pain Scale 1-3) Albuterol/Ipratropium (Albuterol/Iprat 2.5/0.5mg 3 Ml Ampul.Neb) 3 ml INHALE RQ4H WHILE AWAKE [facility] Last Admin: 10/07/23 07:38 Dose: 3 ml Documented By: HUE Aripiprazole (Aripiprazole 10 Mg Tablet) 10 mg PO BEDTIME [facility] Last Admin: 10/06/23 21:41 Dose: 10 mg Documented By: LISET Aripiprazole (Aripiprazole 30 Mg Tablet) 30 mg PO DAILY [facility] Last Admin: 10/07/23 10:12 Dose: 30 mg Documented By: ANDERSON Artificial Tears (Artificial Tears 15 Ml Drops) 1 drop EYE-BOTH QID PRN PRN Reason: Dry Eyes Atorvastatin Calcium (Atorvastatin Calcium 40 Mg Tablet) 40 mg PO BEDTIME [facility] Last Admin: 10/06/23 21:41 Dose: 40 mg Documented By: LISET Bisacodyl (Bisacodyl 10 Mg Supp.Rect) 10 mg [place] DAILY PRN PRN Reason: Constipation Cyanocobalamin (Cyanocobalamin (Vitamin B-12) 1,000 Mcg/Ml Vial) 1,000 mcg IM Q28D [facility] Dextrose (Dextrose 50 % 25 Gm/50 Ml Syringe) 25 gm IVPUSH Q15M PRN; Protocol PRN Reason: per Hypoglycemia Standing Ord. Enoxaparin Sodium (Enoxaparin Sodium 30 Mg/0.3 Ml Syringe) 30 mg SUBCUT Q24H [facility] Last Admin: 10/06/23 15:48 Dose: 30 mg Documented By: SIM Gabapentin (Gabapentin 300 Mg Capsule) 300 mg PO DAILY@0600 [facility] Last Admin: 10/07/23 06:02 Dose: 300 mg Documented By: MIGUEL Gabapentin (Gabapentin 400 Mg Capsule) 400 mg PO BEDTIME [facility] Last Admin: 10/06/23 21:41 Dose: 400 mg Documented By: RICCODENL Glucose (Glucose Gel 15 Gm Gel..Gram.) 15 gm PO Q15M PRN; Protocol PRN Reason: per Hypoglycemia Standing Ord. Piperacillin Sod/Tazobactam (Sod 4.5 gm/ Sodium Chloride) 100 mls @ 200 mls/hr IV Q8H [facility] Last Infusion: 10/07/23 08:56 Dose: Infused Documented By: ANDERSON Insulin Human Lispro (Insulin Lispro 100 Unit/Ml 3 Ml Vial) 0 unit SUBCUT QIDACHS [facility]; Protocol Last Admin: 10/07/23 07:44 Dose: Not Given Documented By: ANDERSON Non-Admin Reason: No Insulin Coverage Lamotrigine (Lamotrigine 25 Mg Tablet) 50 mg PO DAILY [facility] Last Admin: 10/07/23 10:12 Dose: 50 mg Documented By: ANDERSON Levothyroxine Sodium (Levothyroxine Sodium 112 Mcg Tablet) 112 mcg PO DAILY@0600 [facility] Last Admin: 10/07/23 06:02 Dose: 112 mcg Documented By: MIGUEL Lidocaine (Lidocaine 4 % Patch Adh..Patch) 2 patch TRANSDERMA DAILY PRN; Protocol PRN Reason: thigh pain Loperamide HCl (Loperamide Hcl 2 Mg Capsule) 2 mg PO QID PRN PRN Reason: Diarrhea Magnesium Hydroxide (Milk Of Magnesia 30 Ml Oral.Susp) 30 ml PO BEDTIME PRN PRN Reason: Laxative Effect Nifedipine (Nifedipine Er 90 Mg Tab.Er.24) 90 mg PO DAILY [facility] Last Admin: 10/07/23 10:12 Dose: 90 mg Documented By: ANDERSON Ondansetron HCl (Ondansetron Hcl 4 Mg/2 Ml Vial) 4 mg IVPUSH Q8H PRN PRN Reason: Nausea and Vomiting Senna (Sennosides 8.6 Mg Tablet) 17.2 mg PO BEDTIME PRN PRN Reason: Constipation Sodium Biphosphate/Sodium Phosphate (Sodium Phosphate,[place]-Dibasic 133 Ml Enema) 133 ml [place] DAILY PRN PRN Reason: Constipation Sodium Chloride (0.9 % Sodium Chloride Flush 3 Ml Syringe) 3 ml IVFLUSH QSHIFT [facility] Last Admin: 10/07/23 08:18 Dose: 3 ml Documented By: ANDERSON Torsemide (Torsemide 20 Mg Tablet) 20 mg PO DAILY@1200 PRN; Protocol PRN Reason: WEIGHT GAIN OF 3 POUNDS OR MORE Torsemide (Torsemide 20 Mg Tablet) 20 mg PO DAILY@1700 [facility]; Protocol Torsemide (Torsemide 20 Mg Tablet) 40 mg PO DAILY@0600 [facility] Last Admin: 10/07/23 06:02 Dose: 40 mg Documented By: MIGUEL Labs 10/07/23 05:13 10/07/23 05:13 Labs: Laboratory Results - last 24 hr 10/06/23 10/06/23 10/06/23 10:02 10:05 21:33 MCV MCH MCHC RDW Plt Count MPV Immature Gran % (Auto) Neut % (Auto) Lymph % (Auto) [place]hing % (Auto) Eos % (Auto) Baso % (Auto) Lymph # (Auto) [place] # (Auto) Eos # (Auto) Baso # (Auto) Abs Immat Gran (auto) Absolute Neuts (auto) Absolute Nucleated RBC Nucleated RBC % (auto) Hold Blue Top SEE NOTE Anion Gap Estim Creat Clear Calc Estimated GFR POC Glucose 152 H Random Glucose Calcium Influenza Type A (PCR) NEGATIVE Influenza Type B (PCR) NEGATIVE RSV RNA Qual (PCR) NEGATIVE SARS-CoV-2 RNA (RT-PCR) NEGATIVE 10/07/23 10/07/23 05:13 07:36 MCV 89.4 MCH 27.0 MCHC 30.2 L RDW 15.6 Plt Count 182 MPV 9.1 L Immature Gran % (Auto) 0.5 H Neut % (Auto) 83.6 H Lymph % (Auto) 5.9 L Pershing % (Auto) 8.9 Eos % (Auto) 0.5 Baso % (Auto) 0.6 Lymph # (Auto) 0.4 L Pershing # (Auto) 0.6 Eos # (Auto) 0.0 Baso # (Auto) 0.0 Abs Immat Gran (auto) 0.03 Absolute Neuts (auto) 5.3 Absolute Nucleated RBC 0.000 Nucleated RBC % (auto) 0.0 Hold Blue Top Anion Gap 12 Estim Creat Clear Calc 32.4 Estimated GFR 36 POC Glucose 71 Random Glucose 72 Calcium 9.3 D Influenza Type A (PCR) Influenza Type B (PCR) RSV RNA Qual (PCR) SARS-CoV-2 RNA (RT-PCR) Microbiology Microbiology Results: Microbiology 10/06/23 14:41 Blood Culture - Preliminary Blood - Venous Prelim: GPC Gram Stain only Assessment and Plan (1) Acute hypoxemic respiratory failure: Status: Acute (2) Pneumonia: Status: Acute (3) Positive blood culture: Status: Acute Plan 88 year old male with hitory of non insulin dependent type 2 diabetes, htn, hypothyroidism, lumbar stenosis, lumbar ddd, ckd stage 3, gout, gerd, schizoaffective disorder, unspecified dementia admitted for bilateral pneumonia with acute hypoxemic respiratory failure. #bilateral pneumonia with acute hypoxemic respiratory failure chest ct shows bilateral lower lobe consolidations and RML infiltrate. CT also reported Groundglass opacities b/l possible chronic lung disease for OP follow up after resolution of current illness Pending mrsa nasal swab, strep pneumo ag, legionella ag, sputum culture Continue IV zosyn Wean O2 down as tolerated duonebs ATC # Positive blood culture 1 set has Positive gram stat for GPC monitor clinically pending final result to repeat cultures cover with Vancomycin meanwhile #Non insulin depedent type 2 diabetes humalog sliding scale hold oral antihyperglycemics #HTN continue nifedipine, torsemide # chronic low back pain continue gabapentin, lidocaine patch #Hypothyroidism continue levothyroxine # hyperlipidemia continue statin #Chronic normocytic anemia h/h above transfusion threshold and consistent with baseline # unspecified dementia with mood disturbance continue home meds DVT prophylaxis-Lovenox DNR/DNI Patient requires inpatient stay overnight for management of acute bilateral pneumonia with acute hypoxemic respiratory failure requiring IV antibiotics and supplemental O2 pending final cultures Quality Stroke Does the patient have a stroke diagnosis?: No VTE Prior VTE?: No VTE Risk Level:: Medical - moderate - high VTE Device Contraindication: Treatment Not Indicated VTE Drug Contraindication: N/A - Med Ordered
[2023-10-07] MEDS: vancomycin/NS 2,000 MG/500 ML PLAST..BAG 250 MG IV (11:25)
[2023-10-07 11:36] LABS: Glucose, Whole Blood 80 mg/dL (60-115)
--- NOTE | 2023-10-07 13:21 | PHA.PROG ---
Admission Date/Time: October 06, 2023 15:13 Indication: Bacteremia Weight in k.7 kg Adjusted body weight in K.5 [place] body weight in K.7 Obesity Dosing Indication % IBW: Serum Creatinine - Last 168 Hours 10/06/23 10/07/23 10:02 05:13 Creatinine 1.87 H 1.78 H Estimated CrCl and GFR - Last 168 Hours 10/06/23 10/07/23 10:02 05:13 Estim Creat Clear Calc 30.8 32.4 Estimated GFR 34 36 Vancomycin Loading Dose: 2000 mg Current Vancomycin Dosing Regimen: 1000 mg q24h Vancomycin Monitoring using AUC goal of 400 - 600 range with trough as surrogate marker: 536 mg/L.hr Date and Time for next Vancomycin Level to be drawn: 10/07/2023 @1000 Pharmacist Comments on Vancomycin Plan: Vancomycin dosing will take advantage of [employer] as a clinical decision support tool that uses Bayesian modeling to calculate individual patient's pharmacokinetic parameters and forecast the patient's drug concentration time course with the target goal AUC 24 range of 400 - 600 mg/L/hr.
[2023-10-07 14:03] LABS: MRSA Nasal PCR NEGATIVE (Negative); SA Nasal PCR POSITIVE (Negative)
[2023-10-07] MEDS: Enoxaparin Sodium 30 MG/0.3 ML SYRINGE SUBCUT (15:49)
[2023-10-07 16:36] LABS: Glucose, Whole Blood 87 mg/dL (60-115)
[2023-10-07] MEDS: Torsemide 20 MG TABLET PO (18:19)
[2023-10-07 20:56] LABS: Glucose, Whole Blood 131 mg/dL (60-115)
[2023-10-07] MEDS: ARIPiprazole 10 MG TABLET PO (21:31)
[2023-10-07] MEDS: Atorvastatin Calcium 40 MG TABLET PO (21:31)
[2023-10-07] MEDS: Gabapentin 400 MG CAPSULE PO (21:31)
[2023-10-08] VITALS (13 sets, daily range): BP systolic 109–150; BP diastolic 54–67; PULSE 66–79; RESP 14–21; TEMP 36.4–36.6; O2SAT 84–93
[2023-10-08] MEDS: Levothyroxine Sodium 112 MCG TABLET PO (05:58)
[2023-10-08] MEDS: Torsemide 20 MG TABLET 40 MG PO (05:58)
[2023-10-08] MEDS: Gabapentin 300 MG CAPSULE PO (05:58)
[2023-10-08 06:55] LABS: Hematocrit 35.4 % (42.0-52.0); Hemoglobin 10.9 g/dl (14.0-18.0); Mean Corpuscular HGB Conc 30.8 g/dl (31.0-36.0); Mean Corpuscular Hemoglobin 27.3 pg (27.0-33.0); Mean Corpuscular Volume 88.5 fL (80.0-98.0); Mean Platelet Volume 9.3 fL (9.4-12.4); Platelet Count 195 X10*3/uL (160-400); Red Cell Distribution Width 15.8 % (11.0-16.0); White Blood Count 6.4 X10*3/uL (4.8-10.8)
[2023-10-08 07:15] LABS: Anion Gap 14 (12-20); Blood Urea Nitrogen 31 mg/dL (9-16); Carbon Dioxide 29 mmol/L (22-29); Chloride 98 mmol/L (96-108); Creatinine Clr Calc Pharmacy 33.9; Estimated Glomerular Filt Rate 38; Glucose Random 150 mg/dL (60-115); Potassium 4.3 mmol/L (3.3-5.1); Sodium 137 mmol/L (135-145)
[2023-10-08 07:37] LABS: Glucose, Whole Blood 162 mg/dL (60-115)
[2023-10-08] MEDS: Albuterol/Iprat 2.5/0.5MG 3 ML AMPUL.NEB INHALE ×4 (07:40→19:50)
[2023-10-08] MEDS: ARIPiprazole 30 MG TABLET PO (08:34)
[2023-10-08] MEDS: Piperacillin Sodium/Tazobactam 4.5 GM in 0.9 % Sodium Chloride 100 ML IV ×3 (08:34→23:23)
[2023-10-08] MEDS: lamoTRIgine 25 MG TABLET 50 MG PO (08:34)
[2023-10-08] MEDS: NIFEdipine ER 90 MG TAB.ER.24 PO (08:34)
[2023-10-08] MEDS: 0.9 % Sodium Chloride Flush 3 ML SYRINGE IVFLUSH ×3 (08:34→21:00)
[2023-10-08] MEDS: Insulin Lispro 100 UNIT/ML 3 ML VIAL SUBCUT (08:34)
[2023-10-08 08:51] LABS: Creatinine Clr Calc Pharmacy 35.8; Estimated Glomerular Filt Rate 41
--- NOTE | 2023-10-08 09:29 | HO.PM.IMPN ---
Subjective Subjective Date of Service: 10/08/23 Interval History: feeling much better Physical Exam Vital Signs: Vital Signs: Last Vital Signs Temp 97.7 F 10/08/23 07:34 Pulse 76 10/08/23 07:41 Resp 18 10/08/23 07:41 BP 140/67 H 10/08/23 07:34 Pulse Ox 91 L 10/08/23 07:34 O2 Del Method Nasal Cannula 10/08/23 07:34 O2 Flow Rate 6 10/08/23 07:34 Oxygen Flow Rate 15 10/06/23 09:47 BMI result Body Mass Index 31.8 alert, oriented times 3, ambulating on 6L without discomfort some scattered crackles and wheezes but overall decent air movement aortic stenosis murmur Objective Data Active Medications Acetaminophen (Acetaminophen 325 Mg Tablet) 650 mg PO Q6H PRN PRN Reason: Pain, Mild (Pain Scale 1-3) Albuterol/Ipratropium (Albuterol/Iprat 2.5/0.5mg 3 Ml Ampul.Neb) 3 ml INHALE RQ4H WHILE AWAKE [facility] Last Admin: 10/08/23 07:40 Dose: 3 ml Documented By: JONATHAN Aripiprazole (Aripiprazole 10 Mg Tablet) 10 mg PO BEDTIME [facility] Last Admin: 10/07/23 21:31 Dose: 10 mg Documented By: JOE Aripiprazole (Aripiprazole 30 Mg Tablet) 30 mg PO DAILY [facility] Last Admin: 10/08/23 08:34 Dose: 30 mg Documented By: ENDY Artificial Tears (Artificial Tears 15 Ml Drops) 1 drop EYE-BOTH QID PRN PRN Reason: Dry Eyes Atorvastatin Calcium (Atorvastatin Calcium 40 Mg Tablet) 40 mg PO BEDTIME [facility] Last Admin: 10/07/23 21:31 Dose: 40 mg Documented By: JOE Bisacodyl (Bisacodyl 10 Mg Supp.Rect) 10 mg [place] DAILY PRN PRN Reason: Constipation Cyanocobalamin (Cyanocobalamin (Vitamin B-12) 1,000 Mcg/Ml Vial) 1,000 mcg IM Q28D [facility] Dextrose (Dextrose 50 % 25 Gm/50 Ml Syringe) 25 gm IVPUSH Q15M PRN; Protocol PRN Reason: per Hypoglycemia Standing Ord. Enoxaparin Sodium (Enoxaparin Sodium 30 Mg/0.3 Ml Syringe) 30 mg SUBCUT Q24H [facility] Last Admin: 10/07/23 15:49 Dose: 30 mg Documented By: ANDERSON Gabapentin (Gabapentin 300 Mg Capsule) 300 mg PO DAILY@0600 [facility] Last Admin: 10/08/23 05:58 Dose: 300 mg Documented By: ARYAN Gabapentin (Gabapentin 400 Mg Capsule) 400 mg PO BEDTIME [facility] Last Admin: 10/07/23 21:31 Dose: 400 mg Documented By: DIAZDEJoceline Glucose (Glucose Gel 15 Gm Gel..Gram.) 15 gm PO Q15M PRN; Protocol PRN Reason: per Hypoglycemia Standing Ord. Piperacillin Sod/Tazobactam (Sod 4.5 gm/ Sodium Chloride) 100 mls @ 200 mls/hr IV Q8H [facility] Last Infusion: 10/08/23 09:28 Dose: Infused Documented By: ENDY Vancomycin HCl 1,000 mg/ (Sodium Chloride) 270 mls @ 270 mls/hr IV Q24H [facility] Insulin Human Lispro (Insulin Lispro 100 Unit/Ml 3 Ml Vial) 0 unit SUBCUT QIDACHS [facility]; Protocol Last Admin: 10/08/23 08:34 Dose: 2 unit Documented By: ENDY Lamotrigine (Lamotrigine 25 Mg Tablet) 50 mg PO DAILY [facility] Last Admin: 10/08/23 08:34 Dose: 50 mg Documented By: ENDY Levothyroxine Sodium (Levothyroxine Sodium 112 Mcg Tablet) 112 mcg PO DAILY@0600 [facility] Last Admin: 10/08/23 05:58 Dose: 112 mcg Documented By: ARYAN Lidocaine (Lidocaine 4 % Patch Adh..Patch) 2 patch TRANSDERMA DAILY PRN; Protocol PRN Reason: thigh pain Loperamide HCl (Loperamide Hcl 2 Mg Capsule) 2 mg PO QID PRN PRN Reason: Diarrhea Magnesium Hydroxide (Milk Of Magnesia 30 Ml Oral.Susp) 30 ml PO BEDTIME PRN PRN Reason: Laxative Effect Nifedipine (Nifedipine Er 90 Mg Tab.Er.24) 90 mg PO DAILY [facility] Last Admin: 10/08/23 08:34 Dose: 90 mg Documented By: ENDY Ondansetron HCl (Ondansetron Hcl 4 Mg/2 Ml Vial) 4 mg IVPUSH Q8H PRN PRN Reason: Nausea and Vomiting Pharmacy Consult (Consult Rx Vancomycin Dosing) 1 each MISCELLANE DAILY PRN PRN Reason: Consult order Senna (Sennosides 8.6 Mg Tablet) 17.2 mg PO BEDTIME PRN PRN Reason: Constipation Sodium Biphosphate/Sodium Phosphate (Sodium Phosphate,[place]-Dibasic 133 Ml Enema) 133 ml [place] DAILY PRN PRN Reason: Constipation Sodium Chloride (0.9 % Sodium Chloride Flush 3 Ml Syringe) 3 ml IVFLUSH QSHIFT [facility] Last Admin: 10/08/23 08:34 Dose: 3 ml Documented By: ENDY Torsemide (Torsemide 20 Mg Tablet) 20 mg PO DAILY@1200 PRN; Protocol PRN Reason: WEIGHT GAIN OF 3 POUNDS OR MORE Torsemide (Torsemide 20 Mg Tablet) 20 mg PO DAILY@1700 [facility]; Protocol Last Admin: 10/07/23 18:19 Dose: 20 mg Documented By: ANDERSON Torsemide (Torsemide 20 Mg Tablet) 40 mg PO DAILY@0600 [facility] Last Admin: 10/08/23 05:58 Dose: 40 mg Documented By: ARYAN Labs 10/08/23 05:42 10/08/23 08:16 Labs: Laboratory Results - last 24 hr 10/06/23 10/07/23 10/07/23 20:47 11:24 12:25 MCV MCH MCHC RDW Plt Count MPV Absolute Nucleated RBC Nucleated RBC % (auto) Anion Gap Estim Creat Clear Calc Estimated GFR POC Glucose 80 Random Glucose Calcium Nasal Screen MRSA (PCR) TNP NEGATIVE Nasal S. aureus Screen TNP POSITIVE A Nasal MRSA/S.aureus Interp TNP SEE NOTE 10/07/23 10/07/23 10/08/23 16:14 20:31 05:42 MCV 88.5 MCH 27.3 MCHC 30.8 L RDW 15.8 Plt Count 195 MPV 9.3 L Absolute Nucleated RBC 0.000 Nucleated RBC % (auto) 0.0 Anion Gap 14 Estim Creat Clear Calc 33.9 Estimated GFR 38 POC Glucose 87 131 H Random Glucose 150 H Calcium 9.0 Nasal Screen MRSA (PCR) Nasal S. aureus Screen Nasal MRSA/S.aureus Interp 10/08/23 10/08/23 07:13 08:16 MCV MCH MCHC RDW Plt Count MPV Absolute Nucleated RBC Nucleated RBC % (auto) Anion Gap Estim Creat Clear Calc 35.8 Estimated GFR 41 POC Glucose 162 H Random Glucose Calcium Nasal Screen MRSA (PCR) Nasal S. aureus Screen Nasal MRSA/S.aureus Interp Microbiology Microbiology Results: Microbiology 10/06/23 14:48 Blood Culture - Preliminary Blood - Venous No growth after 24 hours. 10/06/23 14:41 Blood Culture - Preliminary Blood - Venous Prelim: GPC Gram Stain only Assessment and Plan (1) Acute hypoxemic respiratory failure: Status: Acute (2) Pneumonia: Status: Acute (3) Positive blood culture: Status: Acute Plan 88M PMH type 2 diabetes, htn, hypothyroidism, moderate to severe , lumbar stenosis, lumbar ddd, ckd stage III, gout, gerd, schizoaffective disorder, unspecified dementia presented with acute hypoxemic respiratory failure. bilateral pneumonia with acute hypoxemic respiratory failure complicated by GPC in chains in blood chest ct shows bilateral lower lobe consolidations and RML infiltrate. CT also reported Groundglass opacities b/l possible chronic lung disease for OP follow up after resolution of current illness positive mrsa nasal swab, follow up blood cultures follow up strep pneumo ag, legionella ag, sputum culture Continue IV vanc, zosyn Wean O2 down as tolerated duonebs ATC DM humalog sliding scale hold oral antihyperglycemics HTN continue nifedipine, torsemide chronic low back pain continue gabapentin, lidocaine patch Hypothyroidism continue levothyroxine hyperlipidemia continue statin Chronic normocytic anemia h/h above transfusion threshold and consistent with baseline unspecified dementia with mood disturbance continue home meds DVT prophylaxis-Lovenox DNR/DNI reason for continued hospitalization:awaiting cultures Quality Stroke Does the patient have a stroke diagnosis?: No VTE Prior VTE?: No VTE Risk Level:: Medical - moderate - high VTE Device Contraindication: Treatment Not Indicated VTE Drug Contraindication: N/A - Med Ordered
[2023-10-08 11:33] LABS: Glucose, Whole Blood 94 mg/dL (60-115)
--- NOTE | 2023-10-08 11:59 | MHC.CM.PN ---
EMR REVIEWED. PER MD ROUNDS PATIENT IS NOT MEDICALLY CLEARED FOR DC. NO CHANGE TO DCP - [facility]URN [facility]. CM WILL CONTINUE TO FOLLOW.
[2023-10-08] MEDS: vancomycin HCL 1,000 MG in 0.9 % Sodium Chloride 250 ML 270 MG IV (12:27)
[2023-10-08 12:57] LABS: Appearance Urine Clear; Color Urine Yellow; Glucose Urine UA Negative (Negative); Leukocyte Esterase Urine Trace (Negative); Nitrite Urine Negative (Negative); PH 5.5 (5.0-9.0); UMIC TRIGGER UA YES; Urine Blood Negative (Negative); Urine Ketones Negative (Negative); Urine Protein Negative (Neg-Trace)
[2023-10-08 13:02] LABS: Bacteria Urine None Seen (None Seen); Hyaline Casts Urine 0-2 /LPF (0-2); RBC Urine 0-2 /HPF (0-2); Squamous Epithelial Cell Urine 0-2 /HPF (0-2); WBC Urine 0-5 /HPF (0-5)
[2023-10-08] MEDS: Enoxaparin Sodium 30 MG/0.3 ML SYRINGE SUBCUT (15:33)
--- NOTE | 2023-10-08 15:34 | PC.RT ---
Pt found on 6L nascimento SATs 83%. Pt did not complain of SOB or distress. RT increased O2 and placed pt on oxymask. Pt on 10L oxymask SATs 90-92%. RN aware and at bedside.
--- NOTE | 2023-10-08 15:50 | PC.NURSE ---
Respiratory reported she found patient to be 83%on % liters oxygen via [place] cannula,administered treatment,switched to Oxi mask and 10 liters,patient setting 90% at present,c/o SOB,lungs bilateral fine crackles,patient also has fungal looking redness under abdominal folds ,between buttocks and rectal area, notified,consult sent to wound nurse
[2023-10-08] MEDS: Acetaminophen 325 MG TABLET 650 MG PO (16:04)
[2023-10-08 16:09] LABS: Glucose, Whole Blood 103 mg/dL (60-115)
[2023-10-08] MEDS: Furosemide 40 MG/4 ML VIAL IVPUSH (16:30)
[2023-10-08] MEDS: Torsemide 20 MG TABLET PO (16:30)
--- NOTE | 2023-10-08 18:05 | PC.NURSE ---
IV lasix was administerd,reassessed patient ,no improvement in oxygen Saturation,Sat 84% on 10 liters via Oxi mask,pt co SOB,respiratory therapist at bedside,Dr. Dewey came in to assess patient,CxR done,patient will be transferred to [facility] unit because of need for high flow oxygen,
--- NOTE | 2023-10-08 18:08 | PC.NURSE ---
Respiratory Therapist just reported sat is 90% on nonrebreather,awaiting transfer
--- NOTE | 2023-10-08 18:16 | PC.NURSE ---
Jonathan patient nephew given update on patient condition and notified of pending transfer
[2023-10-08] MEDS: Furosemide 100 MG/10 ML VIAL 60 MG IVPUSH (18:18)
--- NOTE | 2023-10-08 18:32 | PC.NURSE ---
Report given to MARINO Darby,Respiratory therapist notified of patient being transfered
[2023-10-08 19:42] LABS: Glucose, Whole Blood 116 mg/dL (60-115)
[2023-10-08] MEDS: Atorvastatin Calcium 40 MG TABLET PO (20:54)
[2023-10-08] MEDS: Gabapentin 400 MG CAPSULE PO (20:54)
[2023-10-08] MEDS: ARIPiprazole 10 MG TABLET PO (20:54)
[2023-10-09] VITALS (13 sets, daily range): BP systolic 129–150; BP diastolic 61–69; PULSE 72–90; RESP 19–22; TEMP 36.7–37.4; O2SAT 90–95
[2023-10-09] MEDS: Gabapentin 300 MG CAPSULE PO (05:44)
[2023-10-09] MEDS: Levothyroxine Sodium 112 MCG TABLET PO (05:44)
[2023-10-09] MEDS: Torsemide 20 MG TABLET 40 MG PO (05:44)
[2023-10-09 06:50] LABS: Anion Gap 15 (12-20); Blood Urea Nitrogen 38 mg/dL (9-16); Calcium 9.3 mg/dL (8.4-10.2); Carbon Dioxide 30 mmol/L (22-29); Chloride 99 mmol/L (96-108); Creatinine Clr Calc Pharmacy 27.8; Estimated Glomerular Filt Rate 30; Glucose Fasting 77 mg/dL (60-99); Potassium 4.5 mmol/L (3.3-5.1); Sodium 139 mmol/L (135-145)
[2023-10-09 06:57] LABS: Hematocrit 36.8 % (42.0-52.0); Hemoglobin 11.3 g/dl (14.0-18.0); Mean Corpuscular HGB Conc 30.7 g/dl (31.0-36.0); Mean Corpuscular Hemoglobin 26.8 pg (27.0-33.0); Mean Corpuscular Volume 87.4 fL (80.0-98.0); Platelet Count 190 X10*3/uL (160-400); Red Blood Count 4.21 X10*6/uL (4.60-5.80); White Blood Count 6.1 X10*3/uL (4.8-10.8)
--- NOTE | 2023-10-09 07:00 | CA_ITS ---
Transthoracic Echocardiogram Patient (Last, First, Middle): Gregory Kang, Gender: Male Date of : 1935 Age: 88 Procedure Date: 10/09/2023 Procedure Type: Transthoracic E[place]ocardi[place] [facility] [place]: 175.26 cm Weight: 97.52 kg BSA: 2.13 m2 Heart Rate: bpm BP: 150 / 69 mmHg Animal Technician: YESSY Referring MD: Ashish Dewey MD Symptoms: aortic stenosis Study Quality: Adequate w contrast ECG Rhythm: Sinus Conclusions: - The left ventricular systolic function is normal. The calculated ejection fraction is 63% by biplane method. - There is moderately increased left ventricular wall thickness. - The basal inferior segment is akinetic. - There is severe aortic valve stenosis. Findings Procedure Information Contrast agent, definity, is being given per protocol without apparent complications. Left Ventricle Normal left ventricular cavity size. There is moderately increased left ventricular wall thickness. The left ventricular systolic function is normal. The calculated ejection fraction is 63% by biplane method. There is no evidence of regional wall motion abnormalities. Diastolic function is normal for age. Wall Motion Rest Echo Findings The basal inferior segment is akinetic. Right Ventricle Moderately increased right ventricular cavity size. There is normal right ventricular systolic function. Atria The left atrium is normal in size. The right atrium is moderately dilated. Aortic Valve There is moderate calcification of the aortic valve. There is severe aortic valve stenosis. The peak aortic velocity is 4.13 m/s with a calculated peak gradient of 68 mmHg. The mean gradient is 41 mmHg. The aortic valve area is 1.08 cm2. There is trace (trivial) aortic valve regurgitation. Mitral Valve The mitral valve appears normal. There is mild mitral valve regurgitation. There is no mitral valve stenosis. Pulmonic Valve The pulmonic valve is likely normal. Tricuspid Valve Normal tricuspid valve structure. There is trace tricuspid valve regurgitation. There is no evidence of pulmonary hypertension. Great Vessels The asc aorta is normal in size. Venous The inferior vena cava is dilated and collapses greater than 50% with inspiration. Pericardium/Pleural There is no evidence of pericardial effusion. Prior Study Comparison Changes noted compared to prior study dated: 02/20/2010. progression of aortic stenosis. Measurements 2D Linear Measurements IVSd: 1.35 0.6-0.9/0.6-1.0 cm LVIDd: 4.35 3.9-5.3/4.2-5.9 cm LVIDd Index: 2.04 2.4-3.2/2.2-3.1 cm/m2 LVIDs: 2.59 2.0-3.6 cm LVPWd: 1.42 0.7-1.1 cm LA Diam: 3.20 2.7-3.8/3.0-4.0 cm LAIDs Index: 1.50 1.5-2.3 cm/m2 LV Mass: 289.78 67-162/88-224 g LV Mass Index: 136.05 43-95/49-115 g/m2 LVOT Diam: 2.20 3.0+(-)1.3 cm 2D Systolic Function EF 4C: 66.00 >55% EF 2C: 58.50 >55% EF BiP: 63.10 >55% Mitral Valve MV VTI: 0.38 MV Pk Joseph: 1.55 MV Mn Joseph: 0.98 MV Pk Grad: 10.00 MV Mn Grad: 4.00 MV Pk E: 1.43 MV PK A: 1.37 MV Decel Time: 183.00 E/A: 1.00 E'Lateral: 6.96 E'Medial: 5.44 E/E' Med: 26.30 E/E' Lat: 20.50 PHT: 54.00 MVA PHT: 4.07 MVA Continuity: 2.75 Decel [place]: 7.81 Aortic Valve AoV Pk Joseph: 4.13 AoV Mn Joseph: 3.05 AoV VTI: 0.98 AoV Pk Grad: 68.00 Aov Mn Grad: 41.00 JOHN Cont.VTI: 1.08 AI Pk Joseph: 3.58 AI [place]: 3.60 LVOT LVOT Pk Joseph: 1.23 LVOT Mn Joseph: 0.80 LVOT VTI: 0.28 LVOT Pk Grad: 6.00 LVOT Mn Grad: 3.00 LVOT Diam: 2.20 LVOT Area: 3.80 Diastolic Function MV Pk E: 1.43 MV Pk A: 1.37 E/A: 1.00 E'Medial: 5.44 E/E' Med: 26.30 E' Laterial: 6.96 E/E' Lat: 20.50 Right Ventricle TAPSE (mm): 22.80 TVS' Joseph: 13.30 Tricuspid Valve TR Pk Joseph: 2.76 TR Pk Grad: 30.00 RA Press: 8.00 RVSP: 38.00 Great Vessels Aorta Sinus of Valsalva: 3.30 2.0-3.5 cm Ao Asc: 3.90 2.1-3.4 cm Pulmonary Valve PV Pk Joseph: 1.05 Peak PV Grad: 4.00 Updated in Other Vendor System with Status of Final Andrade Dey MD electronically signed on 10/09/2023 8:36:05 AM with status of Final
[2023-10-09 07:50] LABS: Glucose, Whole Blood 73 mg/dL (60-115)
[2023-10-09] MEDS: Albuterol/Iprat 2.5/0.5MG 3 ML AMPUL.NEB INHALE ×4 (07:50→20:17)
[2023-10-09] MEDS: 0.9 % Sodium Chloride Flush 3 ML SYRINGE IVFLUSH ×3 (07:57→20:14)
[2023-10-09] MEDS: NIFEdipine ER 90 MG TAB.ER.24 PO (07:57)
[2023-10-09] MEDS: Piperacillin Sodium/Tazobactam 4.5 GM in 0.9 % Sodium Chloride 100 ML IV ×2 (07:57→15:05)
[2023-10-09] MEDS: lamoTRIgine 25 MG TABLET 50 MG PO (07:57)
[2023-10-09] MEDS: ARIPiprazole 30 MG TABLET PO (07:57)
--- NOTE | 2023-10-09 09:29 | P.PNIM_ITS ---
Subjective Subjective Date of Service: 10/09/23 Interval History: worsening hypoxia and sob 10/08/23, now on high flow, reports sob a bit better today Physical Exam 2 Vital Signs: Vital Signs: Last Vital Signs Temp 98.5 F 10/09/23 07:14 Pulse 82 10/09/23 07:52 Resp 22 H 10/09/23 07:52 BP 150/69 H 10/09/23 07:14 Pulse Ox 92 10/09/23 07:14 O2 Del Method High Flow Nasal C annula 10/09/23 07:14 O2 Flow Rate 50 10/09/23 07:14 FiO2 100 10/09/23 07:14 Oxygen Flow Rate 15 10/06/23 09:47 BMI result Body Mass Index 31.8 General: AO X 3, a bit dyspneic, on high flow NC Resp: scattered crackles and wheezes bilateral, mild accessory muscles used CVS: S1,S2,RRR, systolic murmur GI: soft, non tender, distended Neuro: motor grossly intact, alert Objective Data Active Medications Acetaminophen (Acetaminophen 325 Mg Tablet) 650 mg PO Q6H PRN PRN Reason: Pain, Mild (Pain Scale 1-3) Last Admin: 10/08/23 16:04 Dose: 650 mg Documented By: CHALO Albuterol/Ipratropium (Albuterol/Iprat 2.5/0.5mg 3 Ml Ampul.Neb) 3 ml INHALE RQ4H WHILE AWAKE [facility] Last Admin: 10/09/23 07:50 Dose: 3 ml Documented By: ELIJAH Aripiprazole (Aripiprazole 10 Mg Tablet) 10 mg PO BEDTIME [facility] Last Admin: 10/08/23 20:54 Dose: 10 mg Documented By: MARICEL Aripiprazole (Aripiprazole 30 Mg Tablet) 30 mg PO DAILY [facility] Last Admin: 10/09/23 07:57 Dose: 30 mg Documented By: ANDERSON Artificial Tears (Artificial Tears 15 Ml Drops) 1 drop EYE-BOTH QID PRN PRN Reason: Dry Eyes Atorvastatin Calcium (Atorvastatin Calcium 40 Mg Tablet) 40 mg PO BEDTIME [facility] Last Admin: 10/08/23 20:54 Dose: 40 mg Documented By: MARICEL Bisacodyl (Bisacodyl 10 Mg Supp.Rect) 10 mg [place] DAILY PRN PRN Reason: Constipation Cyanocobalamin (Cyanocobalamin (Vitamin B-12) 1,000 Mcg/Ml Vial) 1,000 mcg IM Q28D [facility] Dextrose (Dextrose 50 % 25 Gm/50 Ml Syringe) 25 gm IVPUSH Q15M PRN; Protocol PRN Reason: per Hypoglycemia Standing Ord. Enoxaparin Sodium (Enoxaparin Sodium 30 Mg/0.3 Ml Syringe) 30 mg SUBCUT Q24H [facility] Last Admin: 10/08/23 15:33 Dose: 30 mg Documented By: CHALO Gabapentin (Gabapentin 300 Mg Capsule) 300 mg PO DAILY@0600 [facility] Last Admin: 10/09/23 05:44 Dose: 300 mg Documented By: MARICEL Gabapentin (Gabapentin 400 Mg Capsule) 400 mg PO BEDTIME [facility] Last Admin: 10/08/23 20:54 Dose: 400 mg Documented By: MARICEL Glucose (Glucose Gel 15 Gm Gel..Gram.) 15 gm PO Q15M PRN; Protocol PRN Reason: per Hypoglycemia Standing Ord. Piperacillin Sod/Tazobactam (Sod 4.5 gm/ Sodium Chloride) 100 mls @ 200 mls/hr IV Q8H [facility] Last Infusion: 10/09/23 08:36 Dose: Infused Documented By: ANDERSON Insulin Human Lispro (Insulin Lispro 100 Unit/Ml 3 Ml Vial) 0 unit SUBCUT QIDACHS [facility]; Protocol Last Admin: 10/09/23 08:36 Dose: Not Given Lamotrigine (Lamotrigine 25 Mg Tablet) 50 mg PO DAILY [facility] Last Admin: 10/09/23 07:57 Dose: 50 mg Documented By: ANDERSON Levothyroxine Sodium (Levothyroxine Sodium 112 Mcg Tablet) 112 mcg PO DAILY@0600 [facility] Last Admin: 10/09/23 05:44 Dose: 112 mcg Documented By: MARICEL Lidocaine (Lidocaine 4 % Patch Adh..Patch) 2 patch TRANSDERMA DAILY PRN; Protocol PRN Reason: thigh pain Loperamide HCl (Loperamide Hcl 2 Mg Capsule) 2 mg PO QID PRN PRN Reason: Diarrhea Magnesium Hydroxide (Milk Of Magnesia 30 Ml Oral.Susp) 30 ml PO BEDTIME PRN PRN Reason: Laxative Effect Nifedipine (Nifedipine Er 90 Mg Tab.Er.24) 90 mg PO DAILY [facility] Last Admin: 10/09/23 07:57 Dose: 90 mg Documented By: ANDERSON Nystatin (Nystatin Powder 15 Gm Bottle) 1 appl TOPICAL TID [facility]; Protocol Last Admin: 10/08/23 23:26 Dose: Not Given Documented By: MARICEL Non-Admin Reason: Med Not Available Ondansetron HCl (Ondansetron Hcl 4 Mg/2 Ml Vial) 4 mg IVPUSH Q8H PRN PRN Reason: Nausea and Vomiting Senna (Sennosides 8.6 Mg Tablet) 17.2 mg PO BEDTIME PRN PRN Reason: Constipation Sodium Biphosphate/Sodium Phosphate (Sodium Phosphate,[place]-Dibasic 133 Ml Enema) 133 ml [place] DAILY PRN PRN Reason: Constipation Sodium Chloride (0.9 % Sodium Chloride Flush 3 Ml Syringe) 3 ml IVFLUSH QSHIFT [facility] Last Admin: 10/09/23 07:57 Dose: 3 ml Documented By: ANDERSON Torsemide (Torsemide 20 Mg Tablet) 20 mg PO DAILY@1200 PRN; Protocol PRN Reason: WEIGHT GAIN OF 3 POUNDS OR MORE Torsemide (Torsemide 20 Mg Tablet) 20 mg PO DAILY@1700 [facility]; Protocol Last Admin: 10/08/23 16:30 Dose: 20 mg Documented By: CHALO Torsemide (Torsemide 20 Mg Tablet) 40 mg PO DAILY@0600 [facility] Last Admin: 10/09/23 05:44 Dose: 40 mg Documented By: MARICEL Labs 10/09/23 06:11 10/09/23 06:11 Labs: Laboratory Results - last 24 hr 10/08/23 10/08/23 10/08/23 11:21 12:42 16:00 MCV MCH MCHC RDW Plt Count MPV Absolute Nucleated RBC Nucleated RBC % (auto) Anion Gap Estim Creat Clear Calc Estimated GFR POC Glucose 94 103 Fasting Glucose Calcium Urine Color Yellow Urine Appearance Clear Urine pH 5.5 Ur Specific [place] 1.010 Urine Protein Negative Urine Glucose (UA) Negative Urine Ketones Negative Urine Blood Negative Urine Nitrite Negative Ur Leukocyte Esterase Trace H Urine RBC 0-2 Urine WBC 0-5 Ur Squamous Epith Cells 0-2 Urine Bacteria None Seen Hyaline Casts 0-2 10/08/23 10/09/23 10/09/23 19:37 06:11 07:17 MCV 87.4 MCH 26.8 L MCHC 30.7 L RDW 16.0 Plt Count 190 MPV 9.0 L Absolute Nucleated RBC 0.000 Nucleated RBC % (auto) 0.0 Anion Gap 15 Estim Creat Clear Calc 27.8 Estimated GFR 30 POC Glucose 116 H 73 Fasting Glucose 77 Calcium 9.3 Urine Color Urine Appearance Urine pH Ur Specific [place] Urine Protein Urine Glucose (UA) Urine Ketones Urine Blood Urine Nitrite Ur Leukocyte Esterase Urine RBC Urine WBC Ur Squamous Epith Cells Urine Bacteria Hyaline Casts Microbiology Microbiology Results: Microbiology 10/06/23 14:48 Blood Culture - Preliminary Blood - Venous No growth after 48 hours. 10/07/23 11:30 Blood Culture - Preliminary Blood - Venous No growth after 24 hours. 10/07/23 11:45 Blood Culture - Preliminary Blood - Venous No growth after 24 hours. 10/06/23 14:41 Blood Culture - Final Blood - Venous Strep agalactiae (Grp B) Assessment and Plan (1) Acute hypoxemic respiratory failure: Status: Acute (2) Pneumonia: Status: Acute (3) Positive blood culture: Status: Acute Plan 88M PMH type 2 diabetes, htn, hypothyroidism, moderate to severe , lumbar stenosis, lumbar ddd, ckd stage III, gout, gerd, schizoaffective disorder, unspecified dementia presented with acute hypoxemic respiratory failure. bilateral pneumonia with acute hypoxemic respiratory failure complicated by group b strep bacteremia chest ct shows bilateral lower lobe consolidations and RML infiltrate. (noted on CT chest in [facility] 09/20/23) CT also reported Groundglass opacities b/l possible chronic lung disease for OP follow up after resolution of current illness Continue IV zosyn now with worsening hypoxia on high flow NC acute on chronic diastolic chf with mod to severe received 2 doses iv lasix 10/08/23, had urine output (not measured), creatinine incrasing on maintence torsemide duonebs ATC check echo ?aspiration [employer] eval DM humalog sliding scale hold oral antihyperglycemics HTN continue nifedipine, torsemide chronic low back pain continue gabapentin, lidocaine patch Hypothyroidism continue levothyroxine hyperlipidemia continue statin Chronic normocytic anemia h/h above transfusion threshold and consistent with baseline unspecified dementia with mood disturbance continue home meds DVT prophylaxis-Lovenox DNR/DNI reason for continued hospitalization:hypoxia Quality Stroke Does the patient have a stroke diagnosis?: No VTE Prior VTE?: No VTE Risk Level:: Medical - moderate - high VTE Device Contraindication: Treatment Not Indicated VTE Drug Contraindication: N/A - Med Ordered
--- NOTE | 2023-10-09 09:40 | HO.WOUND ---
Wound Consult: Initial Attempted Arrival to bedside patient was have bedside ECHO performed - will attempt at future time and or date.
[2023-10-09] MEDS: Nystatin Powder 15 GM BOTTLE 1 APPL TOPICAL ×2 (10:30→17:09)
[2023-10-09 11:32] LABS: Glucose, Whole Blood 100 mg/dL (60-115)
--- NOTE | 2023-10-09 11:32 | MHC.SL.SWA ---
Speech Pathologist Impression: Risk of Aspiration Due to: History of Pneumonia Reduced Cognition Dysphasia Diet Status: Ground/Mechanical (NDD2) with Thin Liquids, pills whole in puree or with liquid as preferred by patient. Liquid Consistency and Strategies for Safe Swallow: Liquid Intake Recommendation: Thin Liquid Intake Strategies: Small Sips Solid Food Consistency: Dietary Recommendations: Grnd/Mech Altered (NDD2) Additional Modifications to Solid Foods: Add sauces and gravies and blend well. Patient will require at a minimum periodic supervision during meal to assure that he is progressing with the meal, accessing food, eating at a slower pace, and not gulping or chain sipping liquids (may need specific cuing). Full supervision, with cuing to slow rate, take individual sips, and monitoring O2 saturation is recommended/preferred. Oral Medication Intake: Whole with Puree Please contact the pharmacy regarding appropriate crushable or liquid drug formulations that are available whenever modified delivery is recommended. Compensatory Strategies and Precautions to be Taken for Safe Swallow: Sitting Upright (90 deg) Liquids from Cup Liquids from Straw Small Bites and Sips Alternate Liquids/Solids Rate of Ingestion Change Supervision While Eating and Drinking for Safe Swallow: Total Supervision (1:1) Foods to Avoid: Mixed consistencies (solids in liquid), difficult to chew solids, too large pieces of food. Swallowing Recommended Treatments: Compens. Strategy Educat. Recommendation for Speech: Inpatient Speech Therapy Comment: Patient presents with a mild to moderate oral pharyngeal dysphagia characterized by edentulous state, munching/tongue pumping pattern on solids, mildly reduced laryngeal elevation on swallow. Recommend DOWNGRADE solids to Ground/Mechanical (NDD2), continue on thin liquids, pills whole in puree or with liquid as preferred by patient. Patient is mildly impulsive when drinking with straw and can chain sip, however with cuing to take individual sips is safe to continue to drink with straw. Recommend full supervision during meals to make sure patient is accessing all foods with ease, is not spilling, and to cue to slow rate, particularly while drinking with straw. Monitor O2 sats, discontinue or take breaks if 02 sats drop without rebounding, or if patient evidences any other clinical signs of aspiration (coughing after swallow, increased upper airway noise). [facility] will continue to follow while inpatient. BRCYE SORIANO notified of recommendations by secure text, RN in person. Frequency/Duration: Date Range for Service Req: Timeline to reassess: Final Inspection Supervisor Clinican/Clinical Fellow: No Supervisory Statement: I have reviewed and agree with the student/clinical fellow's documentation: N/A Speech Language Pathologist: Lilli Woody M.A., [facility]
--- NOTE | 2023-10-09 12:51 | P.CONPL_ITS ---
History of Present Illness History of Present Illness Consult date: 10/09/23 Requesting physician: Ashish Dewey Chief complaint: sob, hypoxia, pneumonia Narrative: 17-year-old gentleman with underlying history of schizophrenia, dementia, diabetes mellitus, aortic stenosis admitted on 10/06/2023 with dyspnea and hypoxia. Patient empirically treated for bacteremia, pneumonia, and congestive heart failure, however still with worsening oxygenation now requiring high-flow oxygen support. He CT chest shows bilateral pleural effusions with compressive atelectasis. 08/14 blood culture is positive for Streptococcus. He has no leukocytosis. Patient is poor historian secondary to underlying dementia. Review of Systems 2 Review of Systems: Yes Unobtainable due to mental status (Dementia) [facility] Past Medical History Medical History (Updated 10/08/23 @ 07:42 by Ashish Dewey MD) Moderate to severe aortic stenosis Acute hypoxemic respiratory failure Unspecified hearing loss, unspecified ear Spinal stenosis, lumbar region without neurogenic claudication Spinal stenosis, 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 Constipation, unspecified Diarrhea, unspecified Spondylosis without myelopathy or radiculopathy, lumbar region Unspecified dementia, unspecified severity, without behavioral disturbance, psychotic disturbance, mood disturbance, and anxiety Other intervertebral disc degeneration, lumbar region Schizoaffective disorder, unspecified Impacted cerumen, left ear Unspecified osteoarthritis, unspecified site Chronic kidney disease, stage 3 unspecified Type 2 diabetes mellitus without complications Gastro-esophageal reflux disease without esophagitis Personal history of COVID-19 Bradycardia, unspecified Cyst of kidney, acquired Deficiency of other specified B group vitamins Type 2 diabetes mellitus with diabetic neuropathy, unspecified Hyperlipidemia, unspecified Other schizophrenia Iron deficiency anemia, unspecified Vertebral artery compression syndromes, site unspecified Other spondylosis with radiculopathy, lumbar region Anemia, unspecified Nutritional anemia, unspecified Radiculopathy, lumbar region Essential (primary) hypertension Benign prostatic hyperplasia without lower urinary tract symptoms Anterior spinal artery compression syndromes, lumbar region Schizophrenia, unspecified Low back pain, unspecified Obesity, unspecified Dorsalgia, unspecified Hypothyroidism, unspecified Diabetes Social History Social History Household Members: None Housing: [facility] Alcohol intake: unknown Patient Tobacco Use Status: Former Tobacco user Advance Directives Date on File: 10/06/23 service: No Meds Allergies Allergy/AdvReac Type Severity Reaction Status Date / Time No Known Allergies Allergy Mild NONE Verified 03/05/23 20:39 Active Medications: Current Medications Acetaminophen (Acetaminophen 325 Mg Tablet) 650 mg PO Q6H PRN PRN Reason: Pain, Mild (Pain Scale 1-3) Last Admin: 10/08/23 16:04 Dose: 650 mg Albuterol/Ipratropium (Albuterol/Iprat 2.5/0.5mg 3 Ml Ampul.Neb) 3 ml INHALE RQ4H WHILE AWAKE [facility] Last Admin: 10/09/23 11:16 Dose: 3 ml Aripiprazole (Aripiprazole 10 Mg Tablet) 10 mg PO BEDTIME [facility] Last Admin: 10/08/23 20:54 Dose: 10 mg Aripiprazole (Aripiprazole 30 Mg Tablet) 30 mg PO DAILY [facility] Last Admin: 10/09/23 07:57 Dose: 30 mg Artificial Tears (Artificial Tears 15 Ml Drops) 1 drop EYE-BOTH QID PRN PRN Reason: Dry Eyes Atorvastatin Calcium (Atorvastatin Calcium 40 Mg Tablet) 40 mg PO BEDTIME [facility] Last Admin: 10/08/23 20:54 Dose: 40 mg Bisacodyl (Bisacodyl 10 Mg Supp.Rect) 10 mg DC DAILY PRN PRN Reason: Constipation Cyanocobalamin (Cyanocobalamin (Vitamin B-12) 1,000 Mcg/Ml Vial) 1,000 mcg IM Q28D [facility] Dextrose (Dextrose 50 % 25 Gm/50 Ml Syringe) 25 gm IVPUSH Q15M PRN; Protocol PRN Reason: per Hypoglycemia Standing Ord. Enoxaparin Sodium (Enoxaparin Sodium 30 Mg/0.3 Ml Syringe) 30 mg SUBCUT Q24H [facility] Last Admin: 10/08/23 15:33 Dose: 30 mg Gabapentin (Gabapentin 300 Mg Capsule) 300 mg PO DAILY@0600 [facility] Last Admin: 10/09/23 05:44 Dose: 300 mg Gabapentin (Gabapentin 400 Mg Capsule) 400 mg PO BEDTIME [facility] Last Admin: 10/08/23 20:54 Dose: 400 mg Glucose (Glucose Gel 15 Gm Gel..Gram.) 15 gm PO Q15M PRN; Protocol PRN Reason: per Hypoglycemia Standing Ord. Piperacillin Sod/Tazobactam (Sod 4.5 gm/ Sodium Chloride) 100 mls @ 200 mls/hr IV Q8H [facility] Last Infusion: 10/09/23 08:36 Dose: Infused Insulin Human Lispro (Insulin Lispro 100 Unit/Ml 3 Ml Vial) 0 unit SUBCUT QIDACHS [facility]; Protocol Last Admin: 10/09/23 11:50 Dose: Not Given Lamotrigine (Lamotrigine 25 Mg Tablet) 50 mg PO DAILY [facility] Last Admin: 10/09/23 07:57 Dose: 50 mg Levothyroxine Sodium (Levothyroxine Sodium 112 Mcg Tablet) 112 mcg PO DAILY@0600 [facility] Last Admin: 10/09/23 05:44 Dose: 112 mcg Lidocaine (Lidocaine 4 % Patch Adh..Patch) 2 patch TRANSDERMA DAILY PRN; Protocol PRN Reason: thigh pain Loperamide HCl (Loperamide Hcl 2 Mg Capsule) 2 mg PO QID PRN PRN Reason: Diarrhea Magnesium Hydroxide (Milk Of Magnesia 30 Ml Oral.Susp) 30 ml PO BEDTIME PRN PRN Reason: Laxative Effect Nifedipine (Nifedipine Er 90 Mg Tab.Er.24) 90 mg PO DAILY [facility] Last Admin: 10/09/23 07:57 Dose: 90 mg Nystatin (Nystatin Powder 15 Gm Bottle) 1 appl TOPICAL TID [facility]; Protocol Last Admin: 10/08/23 23:26 Dose: Not Given Ondansetron HCl (Ondansetron Hcl 4 Mg/2 Ml Vial) 4 mg IVPUSH Q8H PRN PRN Reason: Nausea and Vomiting Senna (Sennosides 8.6 Mg Tablet) 17.2 mg PO BEDTIME PRN PRN Reason: Constipation Sodium Biphosphate/Sodium Phosphate (Sodium Phosphate,[place]-Dibasic 133 Ml Enema) 133 ml DC DAILY PRN PRN Reason: Constipation Sodium Chloride (0.9 % Sodium Chloride Flush 3 Ml Syringe) 3 ml IVFLUSH QSHIFT [facility] Last Admin: 10/09/23 07:57 Dose: 3 ml Torsemide (Torsemide 20 Mg Tablet) 20 mg PO DAILY@1200 PRN; Protocol PRN Reason: WEIGHT GAIN OF 3 POUNDS OR MORE Torsemide (Torsemide 20 Mg Tablet) 20 mg PO DAILY@1700 [facility]; Protocol Last Admin: 10/08/23 16:30 Dose: 20 mg Torsemide (Torsemide 20 Mg Tablet) 40 mg PO DAILY@0600 [facility] Last Admin: 10/09/23 05:44 Dose: 40 mg Home Medications Medication Instructions Recorded Confirmed Last Taken Type acetaminophen 325 mg tablet 650 mg PO Q4H PRN Pain 03/06/23 10/06/23 Unknown History aripiprazole 10 mg tablet 10 mg PO BEDTIME 03/06/23 10/06/23 Unknown History bisacodyl 10 mg rectal suppository 10 mg DC DAILY PRN Constipation 03/06/23 10/06/23 Unknown History clotrimazole 1 % topical cream 1 appl topical BID PRN Rash 03/06/23 10/06/23 Unknown History cyanocobalamin (vitamin B-12) 1,000 mcg IM QMONTH 03/06/23 10/06/23 09/24/23 History 1,000 mcg/mL injection kit gabapentin 300 mg capsule 300 mg PO DAILY@00 03/06/23 10/06/23 Unknown History levothyroxine 112 mcg tablet 112 mcg PO DAILY@0600 03/06/23 10/06/23 Unknown History loperamide 2 mg tablet 2 mg PO QID PRN Diarrhea 03/06/23 10/06/23 Unknown History (Anti-Diarrheal (loperamide)) magnesium hydroxide 400 mg/5 mL 2,400 mg PO BEDTIME PRN Laxative 03/06/23 10/06/23 Unknown History oral suspension (Dulcolax Effect (magnesium hydroxide)) metformin 500 mg tablet 500 mg PO DAILY 03/06/23 10/06/23 Unknown History nifedipine 30 mg tablet,extended 30 mg PO DAILY 03/06/23 10/06/23 Unknown History release nifedipine 60 mg tablet,extended 60 mg PO DAILY 03/06/23 10/06/23 Unknown History release polyvinyl alcohol 1.4 % eye drops 1 drp ophthalmic (eye) TID-QID PRN 03/06/23 10/06/23 Unknown History Dry Eyes sodium phosphates 19 gram-7 133 ml DC DAILY PRN Constipation 03/06/23 10/06/23 Unknown History gram/118 mL enema (Fleet Enema) aripiprazole 30 mg tablet 30 mg PO DAILY 10/06/23 10/06/23 Unknown History atorvastatin 40 mg tablet 40 mg PO BEDTIME 10/06/23 10/06/23 Unknown History dapagliflozin propanediol 5 mg 5 mg PO DAILY 10/06/23 10/06/23 Unknown History tablet (Farxiga) gabapentin 400 mg capsule 400 mg PO BEDTIME 10/06/23 10/06/23 Unknown History lamotrigine 25 mg tablet 50 mg PO DAILY 10/06/23 10/06/23 Unknown History lidocaine 4 % topical patch 2 patch topical DAILY PRN Pain 10/06/23 10/06/23 Unknown History torsemide 20 mg tablet 20 mg PO DAILY@1200 PRN WEIGHT 10/06/23 10/06/23 Unknown History GAIN OF 3 POUNDS OR MORE torsemide 20 mg tablet 20 mg PO DAILY@1700 10/06/23 10/06/23 Unknown History torsemide 40 mg tablet 40 mg PO DAILY@0600 10/06/23 10/06/23 Unknown History Physical Exam 2 Vital Signs: Vital Signs: Last Vital Signs Temp 98.1 F 10/09/23 11:10 Pulse 79 10/09/23 11:18 Resp 20 10/09/23 11:18 BP 138/61 10/09/23 11:10 Pulse Ox 93 10/09/23 11:10 O2 Del Method High Flow Nasal C annula 10/09/23 11:10 O2 Flow Rate 50 10/09/23 11:10 FiO2 100 10/09/23 11:10 Oxygen Flow Rate 15 10/06/23 09:47 BMI result Body Mass Index 31.8 Const: General: no acute distress and awake Nutritional Appearance: obese Eyes: Sclerae: sclerae normal EOM: EOMs intact bilaterally Neck: Neck: Yes no lymphadenopathy, Yes trachea midline and Yes supple Resp: Effort & Inspection: normal respiratory effort and no respiratory distress Auscultation: clear to auscultation bilaterally Cardio: Rate: regular rate Rhythm: regular rhythm Heart sounds: no gallops, no murmurs and no rubs GI: Palpation (GI): Soft to palpation and Other GI palpation findings present ( Nontender) Auscultation: normal bowel sounds Extrem: General: Yes no pedal edema, No clubbing and No cyanosis Results Laboratory Findings 10/09/23 06:11 10/09/23 06:11 ABG, PT/INR, D-dimer: PT/INR, D-dimer PT 11.9 SEC (11.1-13.3) 10/06/23 10:02 INR 1.0 (0.9-1.1) 10/06/23 10:02 Abnormal lab findings: Abnormal Labs 10/06/23 10/06/23 10/07/23 10:02 21:33 05:13 RBC 4.56 L 4.07 L Hgb 12.3 L 11.0 L Hct 41.2 L 36.4 L MCH MCHC 29.9 L 30.2 L MPV 9.1 L 9.1 L Immature Gran % (Auto) 1.0 H 0.5 H Neut % (Auto) 82.6 H 83.6 H Lymph % (Auto) 6.7 L 5.9 L Lymph # (Auto) 0.5 L 0.4 L Abs Immat Gran (auto) 0.07 H Potassium 5.4 H Carbon Dioxide 32 H 35 H BUN 45 H 41 H Creatinine 1.87 H 1.78 H POC Glucose 152 H Random Glucose Alkaline Phosphatase 131 H B-Natriuretic Peptide 121 H Total Protein 8.7 H Ur Leukocyte Esterase Nasal S. aureus Screen 10/07/23 10/07/23 10/08/23 12:25 20:31 05:42 RBC 4.00 L Hgb 10.9 L Hct 35.4 L MCH MCHC 30.8 L MPV 9.3 L Immature Gran % (Auto) Neut % (Auto) Lymph % (Auto) Lymph # (Auto) Abs Immat Gran (auto) Potassium Carbon Dioxide BUN 31 H Creatinine 1.70 H POC Glucose 131 H Random Glucose 150 H Alkaline Phosphatase B-Natriuretic Peptide Total Protein Ur Leukocyte Esterase Nasal S. aureus Screen POSITIVE A 10/08/23 10/08/23 10/08/23 07:13 08:16 12:42 RBC Hgb Hct MCH MCHC MPV Immature Gran % (Auto) Neut % (Auto) Lymph % (Auto) Lymph # (Auto) Abs Immat Gran (auto) Potassium Carbon Dioxide BUN Creatinine 1.61 H POC Glucose 162 H Random Glucose Alkaline Phosphatase B-Natriuretic Peptide Total Protein Ur Leukocyte Esterase Trace H Nasal S. aureus Screen 10/08/23 10/09/23 19:37 06:11 RBC 4.21 L Hgb 11.3 L Hct 36.8 L MCH 26.8 L MCHC 30.7 L MPV 9.0 L Immature Gran % (Auto) Neut % (Auto) Lymph % (Auto) Lymph # (Auto) Abs Immat Gran (auto) Potassium Carbon Dioxide 30 H BUN 38 H Creatinine 2.07 H POC Glucose 116 H Random Glucose Alkaline Phosphatase B-Natriuretic Peptide Total Protein Ur Leukocyte Esterase Nasal S. aureus Screen Microbiology: Microbiology 10/06/23 14:48 Blood - Venous Blood Culture - Preliminary No growth after 48 hours. 10/07/23 11:30 Blood - Venous Blood Culture - Preliminary No growth after 24 hours. 10/07/23 11:45 Blood - Venous Blood Culture - Preliminary No growth after 24 hours. 10/06/23 14:41 Blood - Venous Blood Culture - Final Strep agalactiae (Grp B) Assessment and Plan (1) Acute hypoxemic respiratory failure: Status: Acute (2) Moderate to severe aortic stenosis: Status: Acute Plan Impression: 88-year-old gentleman with underlying moderate to severe aortic stenosis admitted with progressive dyspnea and hypoxia. CT chest with bilateral pleural effusions, no significant lobar pneumonia/sputum production/leukocytosis noted to have an infectious explanation to his symptoms. Now with intravascular volume depletion, but still significant hypoxia. Recommendations: Consider ruling out pulmonary embolism and evaluation with an echocardiogram for worsening aortic stenosis. Procedures Date of Service Date of Service: 10/09/23
[2023-10-09] MEDS: Enoxaparin Sodium 30 MG/0.3 ML SYRINGE SUBCUT (15:05)
[2023-10-09 16:16] LABS: Glucose, Whole Blood 87 mg/dL (60-115)
[2023-10-09] MEDS: Torsemide 20 MG TABLET PO (17:09)
[2023-10-09 20:13] LABS: Glucose, Whole Blood 89 mg/dL (60-115)
[2023-10-09] MEDS: ARIPiprazole 10 MG TABLET PO (20:14)
[2023-10-09] MEDS: Gabapentin 400 MG CAPSULE PO (20:14)
[2023-10-09] MEDS: Atorvastatin Calcium 40 MG TABLET PO (20:14)
[2023-10-10] VITALS (15 sets, daily range): BP systolic 116–155; BP diastolic 59–64; PULSE 63–100; RESP 18–24; TEMP 36.8–37.3; O2SAT 85–92
[2023-10-10] MEDS: Piperacillin Sodium/Tazobactam 4.5 GM in 0.9 % Sodium Chloride 100 ML IV ×4 (01:35→22:30)
[2023-10-10] MEDS: Acetaminophen 325 MG TABLET 650 MG PO ×2 (01:46→18:35)
[2023-10-10] MEDS: Nystatin Powder 15 GM BOTTLE 1 APPL TOPICAL ×4 (01:49→22:31)
[2023-10-10] MEDS: Torsemide 20 MG TABLET 40 MG PO (05:33)
[2023-10-10] MEDS: Gabapentin 300 MG CAPSULE PO (05:33)
[2023-10-10] MEDS: Levothyroxine Sodium 112 MCG TABLET PO (05:33)
[2023-10-10 06:57] LABS: Hematocrit 37.6 % (42.0-52.0); Hemoglobin 11.2 g/dl (14.0-18.0); Mean Corpuscular HGB Conc 29.8 g/dl (31.0-36.0); Mean Corpuscular Hemoglobin 26.8 pg (27.0-33.0); Mean Platelet Volume 9.1 fL (9.4-12.4); Platelet Count 187 X10*3/uL (160-400); Red Blood Count 4.18 X10*6/uL (4.60-5.80); Red Cell Distribution Width 15.9 % (11.0-16.0); White Blood Count 7.2 X10*3/uL (4.8-10.8)
[2023-10-10 07:03] LABS: Alanine Aminotransferase 14 U/L (0-40); Alkaline Phosphatase 93 U/L (39-117); Anion Gap 17 (12-20); Aspartate Amino Transferase 16 U/L (5-37); Bilirubin Direct 0.4 mg/dL (0.0-0.5); Bilirubin Total 0.8 mg/dL (0.0-1.0); Blood Urea Nitrogen 39 mg/dL (9-16); Calcium 9.5 mg/dL (8.4-10.2); Carbon Dioxide 31 mmol/L (22-29); Chloride 95 mmol/L (96-108); Creatinine Clr Calc Pharmacy 31.8; Estimated Glomerular Filt Rate 35; Glucose Fasting 75 mg/dL (60-99); Magnesium 2.2 mg/dL (1.6-2.6); Potassium 4.4 mmol/L (3.3-5.1); Sodium 139 mmol/L (135-145); Total Protein 7.9 g/dL (6.5-8.0)
[2023-10-10 07:36] LABS: B Type Natriuretic Peptide 120 pg/mL (<100)
--- NOTE | 2023-10-10 07:49 | PC.RT ---
pt sats this am on HFNC 100% and 50 liters was 82%. Placed on a 10 liters Oxymask and sats up to 92% .MD/RN aware
--- NOTE | 2023-10-10 08:23 | HO.PM.IMPN ---
Subjective Subjective Date of Service: 10/10/23 Interval History: sob Physical Exam Vital Signs: Vital Signs: Last Vital Signs Temp 98.3 F 10/10/23 03:30 Pulse 63 10/10/23 03:30 Resp 21 H 10/10/23 05:12 BP 116/59 L 10/10/23 03:30 Pulse Ox 90 L 10/10/23 03:30 O2 Del Method High Flow Nasal C annula 10/10/23 03:30 O2 Flow Rate 50 10/09/23 19:11 FiO2 80 10/09/23 19:11 Oxygen Flow Rate 15 10/06/23 09:47 BMI result Body Mass Index 31.8 General: AO X 3, a bit dyspneic, on high flow NC Resp: scattered crackles and wheezes bilateral, mild accessory muscles used CVS: S1,S2,RRR, systolic murmur GI: soft, non tender, distended Neuro: motor grossly intact, alert Objective Data Active Medications Acetaminophen (Acetaminophen 325 Mg Tablet) 650 mg PO Q6H PRN PRN Reason: Pain, Mild (Pain Scale 1-3) Last Admin: 10/10/23 01:46 Dose: 650 mg Documented By: MARICEL Albuterol/Ipratropium (Albuterol/Iprat 2.5/0.5mg 3 Ml Ampul.Neb) 3 ml INHALE RQ4H WHILE AWAKE [facility] Last Admin: 10/09/23 20:17 Dose: 3 ml Documented By: ZACARIAS Aripiprazole (Aripiprazole 10 Mg Tablet) 10 mg PO BEDTIME [facility] Last Admin: 10/09/23 20:14 Dose: 10 mg Documented By: MARICEL Aripiprazole (Aripiprazole 30 Mg Tablet) 30 mg PO DAILY [facility] Last Admin: 10/09/23 07:57 Dose: 30 mg Documented By: ANDERSON Artificial Tears (Artificial Tears 15 Ml Drops) 1 drop EYE-BOTH QID PRN PRN Reason: Dry Eyes Atorvastatin Calcium (Atorvastatin Calcium 40 Mg Tablet) 40 mg PO BEDTIME [facility] Last Admin: 10/09/23 20:14 Dose: 40 mg Documented By: MARICEL Bisacodyl (Bisacodyl 10 Mg Supp.Rect) 10 mg SD DAILY PRN PRN Reason: Constipation Cyanocobalamin (Cyanocobalamin (Vitamin B-12) 1,000 Mcg/Ml Vial) 1,000 mcg IM Q28D [facility] Dextrose (Dextrose 50 % 25 Gm/50 Ml Syringe) 25 gm IVPUSH Q15M PRN; Protocol PRN Reason: per Hypoglycemia Standing Ord. Enoxaparin Sodium (Enoxaparin Sodium 30 Mg/0.3 Ml Syringe) 30 mg SUBCUT Q24H [facility] Last Admin: 10/09/23 15:05 Dose: 30 mg Documented By: ANDERSON Gabapentin (Gabapentin 300 Mg Capsule) 300 mg PO DAILY@0600 [facility] Last Admin: 10/10/23 05:33 Dose: 300 mg Documented By: MARICEL Gabapentin (Gabapentin 400 Mg Capsule) 400 mg PO BEDTIME [facility] Last Admin: 10/09/23 20:14 Dose: 400 mg Documented By: MARICEL Glucose (Glucose Gel 15 Gm Gel..Gram.) 15 gm PO Q15M PRN; Protocol PRN Reason: per Hypoglycemia Standing Ord. Piperacillin Sod/Tazobactam (Sod 4.5 gm/ Sodium Chloride) 100 mls @ 200 mls/hr IV Q8H [facility] Last Infusion: 10/10/23 02:05 Dose: Infused Documented By: MARICEL Insulin Human Lispro (Insulin Lispro 100 Unit/Ml 3 Ml Vial) 0 unit SUBCUT QIDACHS [facility]; Protocol Last Admin: 10/10/23 01:48 Dose: Not Given Documented By: MARICEL Non-Admin Reason: under sliding scale. Lamotrigine (Lamotrigine 25 Mg Tablet) 50 mg PO DAILY [facility] Last Admin: 10/09/23 07:57 Dose: 50 mg Documented By: ANDERSON Levothyroxine Sodium (Levothyroxine Sodium 112 Mcg Tablet) 112 mcg PO DAILY@0600 [facility] Last Admin: 10/10/23 05:33 Dose: 112 mcg Documented By: MARICEL Lidocaine (Lidocaine 4 % Patch Adh..Patch) 2 patch TRANSDERMA DAILY PRN; Protocol PRN Reason: thigh pain Loperamide HCl (Loperamide Hcl 2 Mg Capsule) 2 mg PO QID PRN PRN Reason: Diarrhea Magnesium Hydroxide (Milk Of Magnesia 30 Ml Oral.Susp) 30 ml PO BEDTIME PRN PRN Reason: Laxative Effect Nifedipine (Nifedipine Er 90 Mg Tab.Er.24) 90 mg PO DAILY [facility] Last Admin: 10/09/23 07:57 Dose: 90 mg Documented By: ANDERSON Nystatin (Nystatin Powder 15 Gm Bottle) 1 appl TOPICAL TID [facility]; Protocol Last Admin: 10/10/23 01:49 Dose: 1 appl Documented By: MARICEL Ondansetron HCl (Ondansetron Hcl 4 Mg/2 Ml Vial) 4 mg IVPUSH Q8H PRN PRN Reason: Nausea and Vomiting Senna (Sennosides 8.6 Mg Tablet) 17.2 mg PO BEDTIME PRN PRN Reason: Constipation Sodium Biphosphate/Sodium Phosphate (Sodium Phosphate,[place]-Dibasic 133 Ml Enema) 133 ml SD DAILY PRN PRN Reason: Constipation Sodium Chloride (0.9 % Sodium Chloride Flush 3 Ml Syringe) 3 ml IVFLUSH QSHIFT [facility] Last Admin: 10/09/23 20:14 Dose: 3 ml Documented By: MARICEL Torsemide (Torsemide 20 Mg Tablet) 20 mg PO DAILY@1200 PRN; Protocol PRN Reason: WEIGHT GAIN OF 3 POUNDS OR MORE Torsemide (Torsemide 20 Mg Tablet) 20 mg PO DAILY@1700 [facility]; Protocol Last Admin: 10/09/23 17:09 Dose: 20 mg Documented By: ANDERSON Torsemide (Torsemide 20 Mg Tablet) 40 mg PO DAILY@0600 [facility] Last Admin: 10/10/23 05:33 Dose: 40 mg Documented By: MARICLE Labs 10/10/23 06:34 10/10/23 06:34 Labs: Laboratory Results - last 24 hr 10/09/23 10/09/23 10/09/23 11:12 16:09 20:08 MCV MCH MCHC RDW Plt Count MPV Absolute Nucleated RBC Nucleated RBC % (auto) Anion Gap Estim Creat Clear Calc Estimated GFR POC Glucose 100 87 89 Fasting Glucose Calcium Magnesium Total Bilirubin Direct Bilirubin AST ALT Alkaline Phosphatase B-Natriuretic Peptide Total Protein Albumin 10/10/23 06:34 MCV 90.0 MCH 26.8 L MCHC 29.8 L RDW 15.9 Plt Count 187 MPV 9.1 L Absolute Nucleated RBC 0.000 Nucleated RBC % (auto) 0.0 Anion Gap 17 Estim Creat Clear Calc 31.8 Estimated GFR 35 POC Glucose Fasting Glucose 75 Calcium 9.5 Magnesium 2.2 Total Bilirubin 0.8 Direct Bilirubin 0.4 AST 16 ALT 14 Alkaline Phosphatase 93 B-Natriuretic Peptide 120 H Total Protein 7.9 Albumin 4.0 Microbiology Microbiology Results: Microbiology 10/07/23 11:30 Blood Culture - Preliminary Blood - Venous No growth after 48 hours. 10/07/23 11:45 Blood Culture - Preliminary Blood - Venous No growth after 48 hours. Assessment and Plan (1) Acute hypoxemic respiratory failure: Status: Acute (2) Pneumonia: Status: Acute (3) Positive blood culture: Status: Acute Plan 88M PMH type 2 diabetes, htn, hypothyroidism, moderate to severe , lumbar stenosis, lumbar ddd, ckd stage III, gout, gerd, schizoaffective disorder, unspecified dementia presented with acute hypoxemic respiratory failure. bilateral pneumonia with acute hypoxemic respiratory failure complicated by group b strep bacteremia chest ct shows bilateral lower lobe consolidations and RML infiltrate. (noted on CT chest in [facility] 09/20/23) CT also reported Groundglass opacities b/l possible chronic lung disease for OP follow up after resolution of current illness Continue IV zosyn hypoxia continues to worsen despite diuresis will add iv steroids acute on chronic diastolic chf with severe received 2 doses iv lasix 10/08/23, had urine output (not measured), ivc collapsing on echo on maintenance torsemide duonebs ATC ?aspiration GENERAL INTERNIST appreciated - ndd2, thins DM humalog sliding scale hold oral antihyperglycemics HTN continue nifedipine chronic low back pain continue gabapentin, lidocaine patch Hypothyroidism continue levothyroxine hyperlipidemia continue statin Chronic normocytic anemia h/h above transfusion threshold and consistent with baseline unspecified dementia with mood disturbance continue home meds DVT prophylaxis-Lovenox DNR/DNI/ no NIPPV - grave prognosis, family updated reason for continued hospitalization:hypoxia Quality Stroke Does the patient have a stroke diagnosis?: No VTE Prior VTE?: No VTE Risk Level:: Medical - moderate - high VTE Device Contraindication: Treatment Not Indicated VTE Drug Contraindication: N/A - Med Ordered
[2023-10-10] MEDS: Albuterol/Iprat 2.5/0.5MG 3 ML AMPUL.NEB INHALE ×4 (08:41→18:51)
[2023-10-10 09:03] LABS: Glucose, Whole Blood 122 mg/dL (60-115)
[2023-10-10] MEDS: 0.9 % Sodium Chloride Flush 3 ML SYRINGE IVFLUSH ×3 (09:07→20:30)
[2023-10-10] MEDS: methylPREDNISolone Sod Succ 125 MG/2 ML VIAL IVPUSH (09:07)
[2023-10-10] MEDS: NIFEdipine ER 90 MG TAB.ER.24 PO (09:08)
[2023-10-10] MEDS: lamoTRIgine 25 MG TABLET 50 MG PO (09:08)
[2023-10-10] MEDS: ARIPiprazole 30 MG TABLET PO (09:08)
--- NOTE | 2023-10-10 09:58 | PM.CNCAR ---
History of Present Illness History of Present Illness Date of Service: 10/10/23 Chief complaint: sob, hypoxia, pneumonia Narrative: This is a cardiology consultation regarding aortic stenosis. Elderly gentleman with many comorbidities admitted for shortness of breath and hypoxia. It seems that he has been hypoxic since arrival and requiring supplemental oxygen. Initial CT scan had shown evidence of bilateral lower lobe consolidation with underlying pleural effusions. He is being treated for pneumonia. From the cardiac standpoint, echocardiogram had shown severe aortic stenosis and hence we are consulted. Patient states that he is aware that finding but does not know too much. Otherwise, he is being treated with IV antibiotics. It seems that diuretics were tried for possible heart failure components but then kidney function got worse. Otherwise, patient states he is generally feeling okay. However, he is just resting in bed and on supplemental oxygen. Review of Systems Review of Systems: Yes all other systems are reviewed and are negative Constitutional: Constitutional: Reports as per HPI and Reports no additional constitutional complaints Eyes: Eyes: Reports as per HPI and Denies no additional eye complaints ENT: Denies system reviewed and no additional complaints, except as documented and Reports as per HPI Cardiovascular: Cardiovascular: Reports as per HPI, Reports no additional cardiovascular complaints, Denies acrocyanosis, Denies cool extremities, Denies chest pain, Denies leg edema, Denies lightheadedness, Denies palpitations and Reports dyspnea Respiratory: Respiratory: Reports as per HPI, Denies no additional respiratory complaints and Reports dyspnea Gastrointestinal: Gastrointestinal: Reports as per HPI and Denies no additional gastrointestinal complaints Genitourinary: Genitourinary: Reports no additional male genitourinary complaints and Reports as per HPI Musculoskeletal: Musculoskeletal: Reports no additional musculoskeletal complaints and Reports as per HPI Integumentary/Breasts: Skin/Breast: Reports system reviewed and no additional complaints, except as docu Neurologic: Reports system reviewed and no additional complaints, except as documented and Reports as per HPI Psychiatric: Psychiatric: Reports no additional psychiatric complaints and Reports as per HPI Endocrine: Endocrine: Reports no additional endocrine complaints, Reports as per HPI and Denies palpitations Hematologic/Lymphatic: Hematologic/Lymphatic: Reports no additional hematologic/lymphatic complaints and Reports as per HPI Allergic/Immunologic: Allergic/Immunologic: Reports no additional allergic/immunologic complaints and Reports as per HPI [facility] Past Medical History Medical History (Updated 10/10/23 @ 10:02 by Andrade Dey MD) Moderate to severe aortic stenosis Acute hypoxemic respiratory failure Unspecified hearing loss, unspecified ear Spinal stenosis, lumbar region without neurogenic claudication Spinal stenosis, 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 Constipation, unspecified Diarrhea, unspecified Spondylosis without myelopathy or radiculopathy, lumbar region Unspecified dementia, unspecified severity, without behavioral disturbance, psychotic disturbance, mood disturbance, and anxiety Other intervertebral disc degeneration, lumbar region Schizoaffective disorder, unspecified Impacted cerumen, left ear Unspecified osteoarthritis, unspecified site Chronic kidney disease, stage 3 unspecified Type 2 diabetes mellitus without complications Gastro-esophageal reflux disease without esophagitis Personal history of COVID-19 Bradycardia, unspecified Cyst of kidney, acquired Deficiency of other specified B group vitamins Type 2 diabetes mellitus with diabetic neuropathy, unspecified Hyperlipidemia, unspecified Other schizophrenia Iron deficiency anemia, unspecified Vertebral artery compression syndromes, site unspecified Other spondylosis with radiculopathy, lumbar region Anemia, unspecified Nutritional anemia, unspecified Radiculopathy, lumbar region Essential (primary) hypertension Benign prostatic hyperplasia without lower urinary tract symptoms Anterior spinal artery compression syndromes, lumbar region Schizophrenia, unspecified Low back pain, unspecified Obesity, unspecified Dorsalgia, unspecified Hypothyroidism, unspecified Diabetes Family History Pertinent family history: No pertinent family history. Social History Social History Household Members: None Housing: Group Home Alcohol intake: unknown Patient Tobacco Use Status: Former Tobacco user Advance Directives Date on File: 10/06/23 service: No Meds Allergies Allergy/AdvReac Type Severity Reaction Status Date / Time No Known Allergies Allergy Mild NONE Verified 03/05/23 20:39 Active Medications: Current Medications Acetaminophen (Acetaminophen 325 Mg Tablet) 650 mg PO Q6H PRN PRN Reason: Pain, Mild (Pain Scale 1-3) Last Admin: 10/10/23 01:46 Dose: 650 mg Albuterol/Ipratropium (Albuterol/Iprat 2.5/0.5mg 3 Ml Ampul.Neb) 3 ml INHALE RQ4H WHILE AWAKE [facility] Last Admin: 10/10/23 08:41 Dose: 3 ml Aripiprazole (Aripiprazole 10 Mg Tablet) 10 mg PO BEDTIME [place] Last Admin: 10/09/23 20:14 Dose: 10 mg Aripiprazole (Aripiprazole 30 Mg Tablet) 30 mg PO DAILY [facility] Last Admin: 10/10/23 09:08 Dose: 30 mg Artificial Tears (Artificial Tears 15 Ml Drops) 1 drop EYE-BOTH QID PRN PRN Reason: Dry Eyes Atorvastatin Calcium (Atorvastatin Calcium 40 Mg Tablet) 40 mg PO BEDTIME [facility] Last Admin: 10/09/23 20:14 Dose: 40 mg Bisacodyl (Bisacodyl 10 Mg Supp.Rect) 10 mg FL DAILY PRN PRN Reason: Constipation Cyanocobalamin (Cyanocobalamin (Vitamin B-12) 1,000 Mcg/Ml Vial) 1,000 mcg IM Q28D [facility] Dextrose (Dextrose 50 % 25 Gm/50 Ml Syringe) 25 gm IVPUSH Q15M PRN; Protocol PRN Reason: per Hypoglycemia Standing Ord. Enoxaparin Sodium (Enoxaparin Sodium 30 Mg/0.3 Ml Syringe) 30 mg SUBCUT Q24H [facility] Last Admin: 10/09/23 15:05 Dose: 30 mg Gabapentin (Gabapentin 300 Mg Capsule) 300 mg PO DAILY@0600 [facility] Last Admin: 10/10/23 05:33 Dose: 300 mg Gabapentin (Gabapentin 400 Mg Capsule) 400 mg PO BEDTIME [facility] Last Admin: 10/09/23 20:14 Dose: 400 mg Glucose (Glucose Gel 15 Gm Gel..Gram.) 15 gm PO Q15M PRN; Protocol PRN Reason: per Hypoglycemia Standing Ord. Piperacillin Sod/Tazobactam (Sod 4.5 gm/ Sodium Chloride) 100 mls @ 200 mls/hr IV Q8H [facility] Last Infusion: 10/10/23 09:58 Dose: Infused Insulin Human Lispro (Insulin Lispro 100 Unit/Ml 3 Ml Vial) 0 unit SUBCUT QIDACHS [facility]; Protocol Last Admin: 10/10/23 09:00 Dose: Not Given Lamotrigine (Lamotrigine 25 Mg Tablet) 50 mg PO DAILY [facility] Last Admin: 10/10/23 09:08 Dose: 50 mg Levothyroxine Sodium (Levothyroxine Sodium 112 Mcg Tablet) 112 mcg PO DAILY@0600 [facility] Last Admin: 10/10/23 05:33 Dose: 112 mcg Lidocaine (Lidocaine 4 % Patch Adh..Patch) 2 patch TRANSDERMA DAILY PRN; Protocol PRN Reason: thigh pain Loperamide HCl (Loperamide Hcl 2 Mg Capsule) 2 mg PO QID PRN PRN Reason: Diarrhea Magnesium Hydroxide (Milk Of Magnesia 30 Ml Oral.Susp) 30 ml PO BEDTIME PRN PRN Reason: Laxative Effect Nifedipine (Nifedipine Er 90 Mg Tab.Er.24) 90 mg PO DAILY [facility] Last Admin: 10/10/23 09:08 Dose: 90 mg Nystatin (Nystatin Powder 15 Gm Bottle) 1 appl TOPICAL TID [facility]; Protocol Last Admin: 10/10/23 09:08 Dose: 1 appl Ondansetron HCl (Ondansetron Hcl 4 Mg/2 Ml Vial) 4 mg IVPUSH Q8H PRN PRN Reason: Nausea and Vomiting Senna (Sennosides 8.6 Mg Tablet) 17.2 mg PO BEDTIME PRN PRN Reason: Constipation Sodium Biphosphate/Sodium Phosphate (Sodium Phosphate,Cannon-Dibasic 133 Ml Enema) 133 ml FL DAILY PRN PRN Reason: Constipation Sodium Chloride (0.9 % Sodium Chloride Flush 3 Ml Syringe) 3 ml IVFLUSH QSHIFT [facility] Last Admin: 10/10/23 09:07 Dose: 3 ml Torsemide (Torsemide 20 Mg Tablet) 20 mg PO DAILY@1200 PRN; Protocol PRN Reason: WEIGHT GAIN OF 3 POUNDS OR MORE Torsemide (Torsemide 20 Mg Tablet) 20 mg PO DAILY@1700 [facility]; Protocol Last Admin: 10/09/23 17:09 Dose: 20 mg Torsemide (Torsemide 20 Mg Tablet) 40 mg PO DAILY@0600 [facility] Last Admin: 10/10/23 05:33 Dose: 40 mg Home Medications Medication Instructions Recorded Confirmed Last Taken Type acetaminophen 325 mg tablet 650 mg PO Q4H PRN Pain 03/06/23 10/06/23 Unknown History aripiprazole 10 mg tablet 10 mg PO BEDTIME 03/06/23 10/06/23 Unknown History bisacodyl 10 mg rectal suppository 10 mg FL DAILY PRN Constipation 03/06/23 10/06/23 Unknown History clotrimazole 1 % topical cream 1 appl topical BID PRN Rash 03/06/23 10/06/23 Unknown History cyanocobalamin (vitamin B-12) 1,000 mcg IM QMONTH 03/06/23 10/06/23 09/24/23 History 1,000 mcg/mL injection kit gabapentin 300 mg capsule 300 mg PO DAILY@0600 03/06/23 10/06/23 Unknown History levothyroxine 112 mcg tablet 112 mcg PO DAILY@0600 03/06/23 10/06/23 Unknown History loperamide 2 mg tablet 2 mg PO QID PRN Diarrhea 03/06/23 10/06/23 Unknown History (Anti-Diarrheal (loperamide)) magnesium hydroxide 400 mg/5 mL 2,400 mg PO BEDTIME PRN Laxative 03/06/23 10/06/23 Unknown History oral suspension (Dulcolax Effect (magnesium hydroxide)) metformin 500 mg tablet 500 mg PO DAILY 03/06/23 10/06/23 Unknown History nifedipine 30 mg tablet,extended 30 mg PO DAILY 03/06/23 10/06/23 Unknown History release nifedipine 60 mg tablet,extended 60 mg PO DAILY 03/06/23 10/06/23 Unknown History release polyvinyl alcohol 1.4 % eye drops 1 drp ophthalmic (eye) TID-QID PRN 03/06/23 10/06/23 Unknown History Dry Eyes sodium phosphates 19 gram-7 133 ml FL DAILY PRN Constipation 03/06/23 10/06/23 Unknown History gram/118 mL enema (Fleet Enema) aripiprazole 30 mg tablet 30 mg PO DAILY 10/06/23 10/06/23 Unknown History atorvastatin 40 mg tablet 40 mg PO BEDTIME 10/06/23 10/06/23 Unknown History dapagliflozin propanediol 5 mg 5 mg PO DAILY 10/06/23 10/06/23 Unknown History tablet (Farxiga) gabapentin 400 mg capsule 400 mg PO BEDTIME 10/06/23 10/06/23 Unknown History lamotrigine 25 mg tablet 50 mg PO DAILY 10/06/23 10/06/23 Unknown History lidocaine 4 % topical patch 2 patch topical DAILY PRN Pain 10/06/23 10/06/23 Unknown History torsemide 20 mg tablet 20 mg PO DAILY@1200 PRN WEIGHT 10/06/23 10/06/23 Unknown History GAIN OF 3 POUNDS OR MORE torsemide 20 mg tablet 20 mg PO DAILY@1700 10/06/23 10/06/23 Unknown History torsemide 40 mg tablet 40 mg PO DAILY@0600 10/06/23 10/06/23 Unknown History Physical Exam Vital Signs: Vital Signs: Last Vital Signs Temp 99.2 F 10/10/23 08:00 Pulse 89 10/10/23 08:41 Resp 20 10/10/23 08:41 BP 155/64 H 10/10/23 08:00 Pulse Ox 92 10/10/23 08:00 O2 Del Method High Flow Nasal C annula 10/10/23 08:00 O2 Flow Rate 30 10/10/23 08:00 FiO2 80 10/09/23 19:11 Oxygen Flow Rate 15 10/06/23 09:47 BMI result Body Mass Index 31.8 Const: General: comfortable and no acute distress Orientation/consciousness: patient oriented x3 HEENT: Other: Unremarkable Head: Yes normal to inspection Neck: Neck: Yes normal visual inspection Chest: Chest palpation & inspection: normal inspection of the chest Resp: Auscultation: clear to auscultation bilaterally Cardio: Palpation: normal PMI Heart sounds: S1 normal heart sound present, S2 abnormal (Absent), no gallops, Murmur heart sound present systolic III/ and at the right sternal border and no rubs GI: Palpation (GI): Soft to palpation Back/Spine/Pelvis: Other: unremarkable Skin: General skin exam: no rashes or lesions noted Neuro: General: patient oriented x3 Extrem: General: Yes normal to inspection Psych: Mental Status: mental status grossly normal Objective Labs and Meds 10/10/23 06:34 10/10/23 06:34 Lab results: Laboratory Results - last 24 hr 10/09/23 10/09/23 10/09/23 11:12 16:09 20:08 WBC RBC Hgb Hct MCV MCH MCHC RDW Plt Count MPV Absolute Nucleated RBC Nucleated RBC % (auto) Sodium Potassium Chloride Carbon Dioxide Anion Gap BUN Creatinine Estim Creat Clear Calc Estimated GFR POC Glucose 100 87 89 Fasting Glucose Calcium Magnesium Total Bilirubin Direct Bilirubin AST ALT Alkaline Phosphatase B-Natriuretic Peptide Total Protein Albumin 10/10/23 10/10/23 06:34 08:59 WBC 7.2 RBC 4.18 L Hgb 11.2 L Hct 37.6 L MCV 90.0 MCH 26.8 L MCHC 29.8 L RDW 15.9 Plt Count 187 MPV 9.1 L Absolute Nucleated RBC 0.000 Nucleated RBC % (auto) 0.0 Sodium 139 Potassium 4.4 Chloride 95 L Carbon Dioxide 31 H Anion Gap 17 BUN 39 H Creatinine 1.81 H Estim Creat Clear Calc 31.8 Estimated GFR 35 POC Glucose 122 H Fasting Glucose 75 Calcium 9.5 Magnesium 2.2 Total Bilirubin 0.8 Direct Bilirubin 0.4 AST 16 ALT 14 Alkaline Phosphatase 93 B-Natriuretic Peptide 120 H Total Protein 7.9 Albumin 4.0 ECG Interpretation: EKG with sinus rhythm at 69/Min with FL prolongation and right bundle-branch block. FL interval 214 milliseconds. Assessment and Plan (1) Nonrheumatic aortic (valve) stenosis: Status: Acute (2) Acute hypoxemic respiratory failure: Status: Acute Plan Difficult to say how much of it is pulmonary from pneumonia and how much is heart failure. The x-ray does show some evidence of congestive heart failure. Aortic stenosis may play a role. Overall, he is got numerous comorbidities and frail. Can re-attempt diuretics and monitor the kidney function. Per Dr. Dewey, renal function did get worse when diuretics were attempted earlier. Otherwise, not entirely clear if he will be a suitable candidate for TAVR because of frailty and comorbidities. Guarded prognosis. We will follow up with you. Procedures Date of Service Date of Service: 10/10/23
--- NOTE | 2023-10-10 11:25 | MHC.CM.PN ---
Pt is not ready for DC, he will return to the 's home when medically ready. CM to follow and assist with DC plan.
[2023-10-10 12:11] LABS: Glucose, Whole Blood 103 mg/dL (60-115)
--- NOTE | 2023-10-10 13:15 | MHC.SL.SWA ---
Speech Pathologist Impression: Oropharyngeal dysphagia, risk of aspiration Risk of Aspiration Due to: History of Pneumonia Reduced Cognition Dysphasia Diet Status: No changes at this time Liquid Consistency and Strategies for Safe Swallow: Liquid Intake Recommendation: Thin Liquid Intake Strategies: Small Sips No Straws Solid Food Consistency: Dietary Recommendations: Grnd/Mech Altered (NDD2) Additional Modifications to Solid Foods: Add sauces and gravies and blend well. Provide pt with 1:1 assistance feeding. Assure that he is progressing with the meal, accessing food, eating at a slower pace, and not gulping or chain sipping liquids (may need specific cuing). Pt may need cuing to slow rate, take individual sips, and monitoring O2 saturation is recommended/preferred. Oral Medication Intake: Crushed with Puree Please contact the pharmacy regarding appropriate crushable or liquid drug formulations that are available whenever modified delivery is recommended. Compensatory Strategies and Precautions to be Taken for Safe Swallow: Sitting Upright (90 deg) Double Swallow No Straw Small Bites and Sips Rate of Ingestion Change Oral Check Avoid Specific Foods Supervision While Eating and Drinking for Safe Swallow: Total Assistance (1:1) Foods to Avoid: Mixed consistencies (solids in liquid), difficult to chew solids, too large pieces of food. Swallowing Recommended Treatments: Compens. Strategy Educat. Recommendation for Speech: Inpatient Speech Therapy Comment: Patient presents with a mild to moderate oral pharyngeal dysphagia characterized by edentulous state, munching/tongue pumping pattern on solids, mildly reduced laryngeal elevation on swallow. Recommend DOWNGRADE solids to Ground/Mechanical (NDD2), continue on thin liquids, pills CRUSHED in PUREE. Patient is mildly impulsive when drinking with straw and can chain sip, however with cuing to take individual sips is safe to continue to drink with straw. Patient may require 1:1 assistance feeding. Assure patient is accessing all foods with ease, is not spilling, and to cue to slow rate, particularly while drinking with straw. Monitor O2 sats, discontinue or take breaks if 02 sats drop without rebounding, or if patient evidences any other clinical signs of aspiration (coughing after swallow, increased upper airway noise). [employer]K LID FITTER will continue to follow while inpatient. Frequency/Duration: PRN M-F Date Range for Service Req: Timeline to reassess: Solar Energy Specialist Clinican/Clinical Fellow: No Supervisory Statement: I have reviewed and agree with the student/clinical fellow's documentation: N/A Speech Language Pathologist: Patricia Rosas M.A., [facility] LID FITTER
--- NOTE | 2023-10-10 15:07 | P.PNPL_ITS ---
Subjective Subjective Date of Service: 10/10/23 Interval history: No significant changes. Echo with severe and mild pHTN. Objective Data Labs 10/10/23 06:34 10/10/23 06:34 Labs: Laboratory Results - last 24 hr 10/09/23 10/09/23 10/10/23 16:09 20:08 06:34 WBC 7.2 RBC 4.18 L Hgb 11.2 L Hct 37.6 L MCV 90.0 MCH 26.8 L MCHC 29.8 L RDW 15.9 Plt Count 187 MPV 9.1 L Absolute Nucleated RBC 0.000 Nucleated RBC % (auto) 0.0 Sodium 139 Potassium 4.4 Chloride 95 L Carbon Dioxide 31 H Anion Gap 17 BUN 39 H Creatinine 1.81 H Estim Creat Clear Calc 31.8 Estimated GFR 35 POC Glucose 87 89 Fasting Glucose 75 Calcium 9.5 Magnesium 2.2 Total Bilirubin 0.8 Direct Bilirubin 0.4 AST 16 ALT 14 Alkaline Phosphatase 93 B-Natriuretic Peptide 120 H Total Protein 7.9 Albumin 4.0 10/10/23 10/10/23 08:59 11:52 WBC RBC Hgb Hct MCV MCH MCHC RDW Plt Count MPV Absolute Nucleated RBC Nucleated RBC % (auto) Sodium Potassium Chloride Carbon Dioxide Anion Gap BUN Creatinine Estim Creat Clear Calc Estimated GFR POC Glucose 122 H 103 Fasting Glucose Calcium Magnesium Total Bilirubin Direct Bilirubin AST ALT Alkaline Phosphatase B-Natriuretic Peptide Total Protein Albumin Microbiology Microbiology Results: Microbiology 10/07/23 11:30 Blood - Venous Blood Culture - Preliminary No growth after 48 hours. 10/07/23 11:45 Blood - Venous Blood Culture - Preliminary No growth after 48 hours. 10/06/23 14:48 Blood - Venous Blood Culture - Preliminary No growth after 48 hours. 10/06/23 14:41 Blood - Venous Blood Culture - Final Strep agalactiae (Grp B) Physical Exam 2 Vital Signs: Vital Signs: Last Vital Signs Temp 99.0 F 10/10/23 12:00 Pulse 95 10/10/23 12:00 Resp 18 10/10/23 12:00 BP 145/61 H 10/10/23 12:00 Pulse Ox 88 L 10/10/23 12:00 O2 Del Method High Flow Nasal C annula 10/10/23 12:00 O2 Flow Rate 30 10/10/23 12:00 FiO2 80 10/09/23 19:11 Oxygen Flow Rate 15 10/06/23 09:47 BMI result Body Mass Index 31.8 Const: General: no acute distress and awake Nutritional Appearance: obese Eyes: Sclerae: sclerae normal EOM: EOMs intact bilaterally Neck: Neck: Yes no lymphadenopathy, Yes trachea midline and Yes supple Resp: Effort & Inspection: normal respiratory effort and no respiratory distress Auscultation: clear to auscultation bilaterally Cardio: Rate: regular rate Rhythm: regular rhythm Heart sounds: no gallops, no murmurs and no rubs GI: Palpation (GI): Soft to palpation and Other GI palpation findings present ( Nontender) Auscultation: normal bowel sounds Extrem: General: Yes no pedal edema, No clubbing and No cyanosis Procedures Date of Service Date of Service: 10/10/23 Assessment and Plan Assessment and plan (1) Severe aortic stenosis: Status: Acute (2) Pulmonary hypertension: Status: Acute (3) Acute hypoxemic respiratory failure: Status: Acute Plan Impression: 88-year-old gentleman with underlying moderate to severe aortic stenosis admitted with progressive dyspnea and hypoxia. Underlying severe aortic stenosis and mild pulmonary hypertension. Recommendations: Consider ruling out pulmonary embolism. Cardiology following for severe aortic stenosis. Mild pulmonary hypertension likely secondary to left sided dysfunction. Time Spent With Patient Time: Total time managing care of this patient today ____ minutes. Progress Note: Quality Stroke Does the patient have a stroke diagnosis?: No
[2023-10-10 16:29] LABS: Glucose, Whole Blood 174 mg/dL (60-115)
[2023-10-10] MEDS: Enoxaparin Sodium 30 MG/0.3 ML SYRINGE SUBCUT (16:50)
[2023-10-10] MEDS: Insulin Lispro 100 UNIT/ML 3 ML VIAL SUBCUT ×2 (16:50→20:30)
[2023-10-10] MEDS: Torsemide 20 MG TABLET PO (16:51)
[2023-10-10] MEDS: methylPREDNISolone Sod Succ 125 MG/2 ML VIAL 60 MG IVPUSH (16:51)
[2023-10-10 20:24] LABS: Glucose, Whole Blood 207 mg/dL (60-115)
[2023-10-10] MEDS: ARIPiprazole 10 MG TABLET PO (20:29)
[2023-10-10] MEDS: Gabapentin 400 MG CAPSULE PO (20:30)
[2023-10-10] MEDS: Atorvastatin Calcium 40 MG TABLET PO (20:30)
[2023-10-11] VITALS (13 sets, daily range): BP systolic 117–142; BP diastolic 58–88; PULSE 75–89; RESP 18–24; TEMP 36.2–37.3; O2SAT 85–95
[2023-10-11] MEDS: methylPREDNISolone Sod Succ 125 MG/2 ML VIAL 60 MG IVPUSH ×3 (02:55→16:55)
[2023-10-11 04:04] LABS: Venous Blood Gas Refer to POC result
[2023-10-11 04:09] LABS: VBG Base Excess 5.9 mmol/L; VBG HCO3 29 mmol/L (22-26); VBG pCO2 38 mmHg; VBG pH 7.49 (7.32-7.43); VBG pO2 232 mmHg
[2023-10-11] MEDS: Torsemide 20 MG TABLET 40 MG PO (04:14)
[2023-10-11] MEDS: Torsemide 20 MG TABLET PO (04:14)
[2023-10-11] MEDS: Levothyroxine Sodium 112 MCG TABLET PO (04:14)
[2023-10-11] MEDS: Gabapentin 300 MG CAPSULE PO (04:15)
--- NOTE | 2023-10-11 04:46 | PM.EVENT ---
Event Note Date of Service: 10/11/23 Event Note: Patient with tachypnea and dyspnea. Bilateral crackles present. Obtained chest x-ray with worsening pulmonary edema. Will administer IV Lasix Time Spent With Patient Time: Total time managing care of this patient today ____ minutes.
[2023-10-11] MEDS: Furosemide 100 MG/10 ML VIAL 60 MG IVPUSH (04:54)
--- NOTE | 2023-10-11 04:55 | PC.NURSE ---
At approx 0330 pt noted to be desatting down to the 80s. On HFNC 50L 100% with Oxymask at 15L on top. Tachypnea, increased WOB diaphragmatic breathing. MD Joseph notified. STAT CXR and VBG ordered and obtained. CXR showing increased pulm edema. Per MD to give PRN To[place]mide and 6am [place] early. Given however patient continues to have increased WOB and desaturations. Per MD 1x dose 60mg IVP Lasix ordered and given. [place] cath placed for I&Os. See MD note for more details.
[2023-10-11 07:15] LABS: Glucose, Whole Blood 160 mg/dL (60-115)
[2023-10-11] MEDS: Albuterol/Iprat 2.5/0.5MG 3 ML AMPUL.NEB INHALE ×4 (07:56→18:59)
[2023-10-11] MEDS: Insulin Lispro 100 UNIT/ML 3 ML VIAL SUBCUT ×3 (09:45→20:38)
[2023-10-11] MEDS: Piperacillin Sodium/Tazobactam 4.5 GM in 0.9 % Sodium Chloride 100 ML IV ×3 (09:45→22:31)
[2023-10-11] MEDS: ARIPiprazole 30 MG TABLET PO (09:46)
[2023-10-11] MEDS: Nystatin Powder 15 GM BOTTLE 1 APPL TOPICAL ×3 (09:46→20:39)
[2023-10-11] MEDS: NIFEdipine ER 90 MG TAB.ER.24 PO (09:46)
[2023-10-11] MEDS: lamoTRIgine 25 MG TABLET 50 MG PO (09:46)
[2023-10-11] MEDS: Oxymetazoline HCl 0.05 % Nasal 15 ML SPRAY 2 SPRAY NOSTRIL-B (09:46)
[2023-10-11] MEDS: 0.9 % Sodium Chloride Flush 3 ML SYRINGE IVFLUSH ×3 (09:47→20:38)
[2023-10-11] MEDS: Furosemide 200 MG in 0.9 % Sodium Chloride 80 ML IVCONT (10:42)
--- NOTE | 2023-10-11 11:00 | P.PNIM_ITS ---
Subjective Subjective Date of Service: 10/11/23 Interval History: sob Physical Exam 2 Vital Signs: Vital Signs: Last Vital Signs Temp 98.0 F 10/11/23 07:46 Pulse 77 10/11/23 07:58 Resp 24 H 10/11/23 07:58 BP 131/88 10/11/23 07:46 Pulse Ox 88 L 10/11/23 07:53 O2 Del Method High Flow Nasal C annula, Oxymask 10/11/23 07:53 O2 Flow Rate 50 10/11/23 07:53 FiO2 97 10/11/23 07:53 Oxygen Flow Rate 15 10/06/23 09:47 BMI result Body Mass Index 31.8 Const: General: no acute distress and awake Nutritional Appearance: obese Eyes: Sclerae: sclerae normal EOM: EOMs intact bilaterally Neck: Neck: Yes no lymphadenopathy, Yes trachea midline and Yes supple Resp: Effort & Inspection: normal respiratory effort and no respiratory distress Auscultation: clear to auscultation bilaterally Cardio: Rate: regular rate Rhythm: regular rhythm Heart sounds: no gallops, no murmurs and no rubs GI: Palpation (GI): Soft to palpation and Other GI palpation findings present ( Nontender) Auscultation: normal bowel sounds Extrem: General: Yes no pedal edema, No clubbing and No cyanosis Objective Data Active Medications Acetaminophen (Acetaminophen 325 Mg Tablet) 650 mg PO Q6H PRN PRN Reason: Pain, Mild (Pain Scale 1-3) Last Admin: 10/10/23 18:35 Dose: 650 mg Documented By: ITZEL Albuterol/Ipratropium (Albuterol/Iprat 2.5/0.5mg 3 Ml Ampul.Neb) 3 ml INHALE RQ4H WHILE AWAKE [facility] Last Admin: 10/11/23 07:56 Dose: 3 ml Documented By: JONATHAN Aripiprazole (Aripiprazole 10 Mg Tablet) 10 mg PO BEDTIME [facility] Last Admin: 10/10/23 20:29 Dose: 10 mg Documented By: JOHANNA Aripiprazole (Aripiprazole 30 Mg Tablet) 30 mg PO DAILY [facility] Last Admin: 10/11/23 09:46 Dose: 30 mg Documented By: MAHAD Artificial Tears (Artificial Tears 15 Ml Drops) 1 drop EYE-BOTH QID PRN PRN Reason: Dry Eyes Atorvastatin Calcium (Atorvastatin Calcium 40 Mg Tablet) 40 mg PO BEDTIME [facility] Last Admin: 10/10/23 20:30 Dose: 40 mg Documented By: JOHANNA Bisacodyl (Bisacodyl 10 Mg Supp.Rect) 10 mg [place] DAILY PRN PRN Reason: Constipation Cyanocobalamin (Cyanocobalamin (Vitamin B-12) 1,000 Mcg/Ml Vial) 1,000 mcg IM Q28D [facility] Dextrose (Dextrose 50 % 25 Gm/50 Ml Syringe) 25 gm IVPUSH Q15M PRN; Protocol PRN Reason: per Hypoglycemia Standing Ord. Enoxaparin Sodium (Enoxaparin Sodium 30 Mg/0.3 Ml Syringe) 30 mg SUBCUT Q24H [facility] Last Admin: 10/10/23 16:50 Dose: 30 mg Documented By: ITZEL Gabapentin (Gabapentin 300 Mg Capsule) 300 mg PO DAILY@0600 [facility] Last Admin: 10/11/23 04:15 Dose: 300 mg Documented By: JOHANNA Gabapentin (Gabapentin 400 Mg Capsule) 400 mg PO BEDTIME [facility] Last Admin: 10/10/23 20:30 Dose: 400 mg Documented By: JOHANNA Glucose (Glucose Gel 15 Gm Gel..Gram.) 15 gm PO Q15M PRN; Protocol PRN Reason: per Hypoglycemia Standing Ord. Piperacillin Sod/Tazobactam (Sod 4.5 gm/ Sodium Chloride) 100 mls @ 200 mls/hr IV Q8H [facility] Last Infusion: 10/11/23 10:46 Dose: Infused Documented By: MAHAD Furosemide 200 mg/ Sodium (Chloride) 100 mls @ 2.5 mls/hr IVCONT .Q24H [facility] Last Admin: 10/11/23 10:42 Dose: 5 mg/hr, 2.5 mls/hr Documented By: MAHAD Insulin Human Lispro (Insulin Lispro 100 Unit/Ml 3 Ml Vial) 0 unit SUBCUT QIDACHS [facility]; Protocol Last Admin: 10/11/23 09:45 Dose: 2 unit Documented By: MAHAD Lamotrigine (Lamotrigine 25 Mg Tablet) 50 mg PO DAILY [facility] Last Admin: 10/11/23 09:46 Dose: 50 mg Documented By: MAHAD Levothyroxine Sodium (Levothyroxine Sodium 112 Mcg Tablet) 112 mcg PO DAILY@0600 [facility] Last Admin: 10/11/23 04:14 Dose: 112 mcg Documented By: JOHANNA Lidocaine (Lidocaine 4 % Patch Adh..Patch) 2 patch TRANSDERMA DAILY PRN; Protocol PRN Reason: thigh pain Loperamide HCl (Loperamide Hcl 2 Mg Capsule) 2 mg PO QID PRN PRN Reason: Diarrhea Magnesium Hydroxide (Milk Of Magnesia 30 Ml Oral.Susp) 30 ml PO BEDTIME PRN PRN Reason: Laxative Effect Methylprednisolone Sodium Succinate (Methylprednisolone Sod Succ 125 Mg/2 Ml Vial) 60 mg IVPUSH Q8H [facility] Last Admin: 10/11/23 09:46 Dose: 60 mg Documented By: MAHAD Nifedipine (Nifedipine Er 90 Mg Tab.Er.24) 90 mg PO DAILY [facility] Last Admin: 10/11/23 09:46 Dose: 90 mg Documented By: MAHAD Nystatin (Nystatin Powder 15 Gm Bottle) 1 appl TOPICAL TID [facility]; Protocol Last Admin: 10/11/23 09:46 Dose: 1 appl Documented By: MAHAD Ondansetron HCl (Ondansetron Hcl 4 Mg/2 Ml Vial) 4 mg IVPUSH Q8H PRN PRN Reason: Nausea and Vomiting Senna (Sennosides 8.6 Mg Tablet) 17.2 mg PO BEDTIME PRN PRN Reason: Constipation Sodium Biphosphate/Sodium Phosphate (Sodium Phosphate,[place]-Dibasic 133 Ml Enema) 133 ml [place] DAILY PRN PRN Reason: Constipation Sodium Chloride (0.9 % Sodium Chloride Flush 3 Ml Syringe) 3 ml IVFLUSH QSHIFT [facility] Last Admin: 10/11/23 09:47 Dose: 3 ml Documented By: MAHAD Torsemide (Torsemide 20 Mg Tablet) 20 mg PO DAILY@1200 PRN; Protocol PRN Reason: WEIGHT GAIN OF 3 POUNDS OR MORE Last Admin: 10/11/23 04:14 Dose: 20 mg Documented By: JOHANNA Comments: okay to give now per MD Joseph Torsemide (Torsemide 20 Mg Tablet) 20 mg PO DAILY@1700 [facility]; Protocol Last Admin: 10/10/23 16:51 Dose: 20 mg Documented By: ITZEL Torsemide (Torsemide 20 Mg Tablet) 40 mg PO DAILY@0600 [facility] Last Admin: 10/11/23 04:14 Dose: 40 mg Documented By: JOHANNA Comments: okay to give now per MD Joseph Labs 10/10/23 06:34 10/10/23 06:34 Labs: Laboratory Results - last 24 hr 10/10/23 10/10/23 10/10/23 11:52 16:23 20:17 VBG pH VBG pCO2 VBG pO2 VBG HCO3 VBG O2 Saturation VBG Base Excess POC Glucose 103 174 H 207 H 10/11/23 10/11/23 04:03 07:11 VBG pH 7.49 H VBG pCO2 38 VBG pO2 232 VBG HCO3 29 H VBG O2 Saturation 100.0 VBG Base Excess 5.9 POC Glucose 160 H Assessment and Plan (1) Acute hypoxemic respiratory failure: Status: Acute (2) Pneumonia: Status: Acute (3) Positive blood culture: Status: Acute Plan 88M PMH type 2 diabetes, htn, hypothyroidism, moderate to severe , lumbar stenosis, lumbar ddd, ckd stage III, gout, gerd, schizoaffective disorder, unspecified dementia presented with acute hypoxemic respiratory failure. bilateral pneumonia with acute hypoxemic respiratory failure complicated by group b strep bacteremia chest ct shows bilateral lower lobe consolidations and RML infiltrate. (noted on CT chest in [facility] 09/20/23) CT also reported Groundglass opacities b/l possible chronic lung disease for OP follow up after resolution of current illness Continue IV zosyn hypoxia continues to worsen despite diuresis added iv steroids acute on chronic diastolic chf with severe will start continuous iv lasix duonebs ATC ?aspiration [employer] appreciated - ndd2, thins DM humalog sliding scale hold oral antihyperglycemics HTN continue nifedipine chronic low back pain continue gabapentin, lidocaine patch Hypothyroidism continue levothyroxine hyperlipidemia continue statin Chronic normocytic anemia h/h above transfusion threshold and consistent with baseline unspecified dementia with mood disturbance continue home meds DVT prophylaxis-Lovenox DNR/DNI/ no NIPPV - grave prognosis, family updated reason for continued hospitalization:hypoxia Quality Stroke Does the patient have a stroke diagnosis?: No VTE Prior VTE?: No VTE Risk Level:: Medical - moderate - high VTE Device Contraindication: Treatment Not Indicated VTE Drug Contraindication: N/A - Med Ordered
[2023-10-11 11:32] LABS: Glucose, Whole Blood 182 mg/dL (60-115)
--- NOTE | 2023-10-11 12:09 | PM.PNCARD ---
Subjective Subjective Date of Service: 10/11/23 Interval history: He states he is feeling okay. Denies any clear-cut cardiac symptoms. Review of Systems Review of Systems Yes all other systems are reviewed and are negative and Unobtainable due to mental status (Dementia) Constitutional: Reports as per HPI and Reports no additional constitutional complaints Eyes: Reports as per HPI and Denies no additional eye complaints Denies system reviewed and no additional complaints, except as documented and Reports as per HPI Cardiovascular: Reports as per HPI, Reports no additional cardiovascular complaints, Denies acrocyanosis, Denies cool extremities, Denies chest pain, Denies leg edema, Denies lightheadedness, Denies palpitations and Reports dyspnea Respiratory: Reports as per HPI, Denies no additional respiratory complaints and Reports dyspnea Gastrointestinal: Reports as per HPI and Denies no additional gastrointestinal complaints Genitourinary: Reports no additional male genitourinary complaints and Reports as per HPI Musculoskeletal: Reports no additional musculoskeletal complaints and Reports as per HPI Skin/Breast: Reports system reviewed and no additional complaints, except as docu Reports system reviewed and no additional complaints, except as documented and Reports as per HPI Psychiatric: Reports no additional psychiatric complaints and Reports as per HPI Endocrine: Reports no additional endocrine complaints, Reports as per HPI and Denies palpitations Hematologic/Lymphatic: Reports no additional hematologic/lymphatic complaints and Reports as per HPI Allergic/Immunologic: Reports no additional allergic/immunologic complaints and Reports as per HPI Physical Exam Vital Signs: Last Vital Signs Temp 98.0 F 10/11/23 07:46 Pulse 88 10/11/23 11:16 Resp 24 H 10/11/23 11:16 BP 131/88 10/11/23 07:46 Pulse Ox 88 L 10/11/23 07:53 O2 Del Method High Flow Nasal Cannula, Oxymask 10/11/23 07:53 O2 Flow Rate 50 10/11/23 07:53 FiO2 97 10/11/23 07:53 Oxygen Flow Rate 15 10/06/23 09:47 BMI result Body Mass Index 31.8 Const General: comfortable and no acute distress Orientation/consciousness: patient oriented x3 HEENT Other: Unremarkable Head: Yes normal to inspection Neck Neck: Yes normal visual inspection Chest Chest palpation & inspection: normal inspection of the chest Resp Auscultation: wheezes and diminished lung sounds Cardio Palpation: normal PMI Heart sounds: S1 normal heart sound present, S2 abnormal (Absent), no gallops, Murmur heart sound present systolic III/ and at the right sternal border and no rubs GI Palpation (GI): Soft to palpation Back/Spine/Pelvis Other: unremarkable Skin General skin exam: no rashes or lesions noted Neuro General: patient oriented x3 Extrem General: Yes normal to inspection Psych Mental Status: mental status grossly normal Objective Labs and Meds 10/10/23 06:34 10/10/23 06:34 Lab results: Laboratory Results - last 24 hr 10/10/23 10/10/23 10/10/23 11:52 16:23 20:17 VBG pH VBG pCO2 VBG pO2 VBG HCO3 VBG O2 Saturation VBG Base Excess POC Glucose 103 174 H 207 H 10/11/23 10/11/23 10/11/23 04:03 07:11 11:24 VBG pH 7.49 H VBG pCO2 38 VBG pO2 232 VBG HCO3 29 H VBG O2 Saturation 100.0 VBG Base Excess 5.9 POC Glucose 160 H 182 H Imaging Radiologist's impression: Impressions Chest X-Ray 10/11/23 04:02 IMPRESSION: Findings suspicious for worsening pulmonary edema. Small pleural effusions. Enlarged cardiac silhouette. Progress Note: A&P Assessment and plan (1) Nonrheumatic aortic (valve) stenosis: Status: Acute (2) Acute hypoxemic respiratory failure: Status: Acute (3) Acute diastolic (congestive) heart failure: Status: Acute Plan Suspect some multifactorial etiology for respiratory failure/hypoxia- pneumonia as well as some congestive heart failure and he also has severe aortic stenosis. Considering his age, comorbidities, frailty, guarded prognosis. On empiric treatment with antibiotics, supplemental O2, steroids, diuretics, nebulizers. He has really not a suitable candidate for any invasive workup and per hospitalist, patient did not want anything either. d/w . d/w Jonathan, his POA and he understands above. Open to hospice discussion. Not a TAVR candidate. Time Spent With Patient Time: Total time managing care of this patient today ____ minutes. Progress Note: Quality Stroke Does the patient have a stroke diagnosis?: No Procedures Date of Service Date of Service: 10/11/23
[2023-10-11] MEDS: Enoxaparin Sodium 30 MG/0.3 ML SYRINGE SUBCUT (15:29)
[2023-10-11 16:46] LABS: Glucose, Whole Blood 144 mg/dL (60-115)
[2023-10-11] MEDS: Gabapentin 400 MG CAPSULE PO (20:38)
[2023-10-11] MEDS: Atorvastatin Calcium 40 MG TABLET PO (20:38)
[2023-10-11] MEDS: ARIPiprazole 10 MG TABLET PO (20:38)
[2023-10-12] VITALS (12 sets, daily range): BP systolic 115–139; BP diastolic 58–95; PULSE 74–86; RESP 13–28; TEMP 36.2–37.2; O2SAT 88–92
[2023-10-12 00:16] LABS: Glucose, Whole Blood 165 mg/dL (60-115)
[2023-10-12] MEDS: methylPREDNISolone Sod Succ 125 MG/2 ML VIAL 60 MG IVPUSH ×3 (01:52→17:18)
[2023-10-12] MEDS: Levothyroxine Sodium 112 MCG TABLET PO (06:04)
[2023-10-12] MEDS: Gabapentin 300 MG CAPSULE PO (06:04)
[2023-10-12 06:38] LABS: Hematocrit 31.3 % (42.0-52.0); Hemoglobin 9.7 g/dl (14.0-18.0); Mean Corpuscular Hemoglobin 27.5 pg (27.0-33.0); Mean Corpuscular Volume 88.7 fL (80.0-98.0); Mean Platelet Volume 9.4 fL (9.4-12.4); Platelet Count 173 X10*3/uL (160-400); Red Blood Count 3.53 X10*6/uL (4.60-5.80); Red Cell Distribution Width 15.7 % (11.0-16.0)
[2023-10-12 06:45] LABS: Anion Gap 18 (12-20); Blood Urea Nitrogen 81 mg/dL (9-16); Calcium 8.9 mg/dL (8.4-10.2); Carbon Dioxide 30 mmol/L (22-29); Chloride 94 mmol/L (96-108); Creatinine Clr Calc Pharmacy 24.7; Estimated Glomerular Filt Rate 27; Glucose Fasting 128 mg/dL (60-99); Potassium 4.7 mmol/L (3.3-5.1); Sodium 137 mmol/L (135-145)
[2023-10-12 07:57] LABS: Glucose, Whole Blood 119 mg/dL (60-115)
[2023-10-12] MEDS: Albuterol/Iprat 2.5/0.5MG 3 ML AMPUL.NEB INHALE ×4 (08:02→19:37)
[2023-10-12] MEDS: ARIPiprazole 30 MG TABLET PO (08:10)
[2023-10-12] MEDS: Furosemide 200 MG in 0.9 % Sodium Chloride 80 ML IVCONT (08:10)
[2023-10-12] MEDS: lamoTRIgine 25 MG TABLET 50 MG PO (08:10)
[2023-10-12] MEDS: NIFEdipine ER 90 MG TAB.ER.24 PO (08:10)
[2023-10-12] MEDS: 0.9 % Sodium Chloride Flush 3 ML SYRINGE IVFLUSH ×2 (08:10→16:17)
[2023-10-12] MEDS: Piperacillin Sodium/Tazobactam 4.5 GM in 0.9 % Sodium Chloride 100 ML IV ×3 (08:15→22:40)
[2023-10-12] MEDS: Nystatin Powder 15 GM BOTTLE 1 APPL TOPICAL ×3 (08:15→20:34)
--- NOTE | 2023-10-12 10:22 | HO.PM.IMPN ---
Subjective Subjective Date of Service: 10/12/23 Interval History: comfortable, wants to go home Physical Exam Vital Signs: Vital Signs: Last Vital Signs Temp 97.2 F 10/12/23 07:58 Pulse 78 10/12/23 08:03 Resp 20 10/12/23 08:03 BP 137/66 10/12/23 07:58 Pulse Ox 88 L 10/12/23 07:58 O2 Del Method High Flow Nasal C annula 10/12/23 07:58 O2 Flow Rate 40 10/12/23 07:58 FiO2 99.8 10/12/23 07:58 Oxygen Flow Rate 15 10/06/23 09:47 BMI result Body Mass Index 31.8 Const: General: comfortable and no acute distress Orientation/consciousness: patient oriented x3 HEENT: Other: Unremarkable Head: Yes normal to inspection Neck: Neck: Yes normal visual inspection Chest: Chest palpation & inspection: normal inspection of the chest Resp: Auscultation: wheezes and diminished lung sounds Cardio: Palpation: normal PMI Heart sounds: S1 normal heart sound present, S2 abnormal (Absent), no gallops, Murmur heart sound present systolic III/ and at the right sternal border and no rubs GI: Palpation (GI): Soft to palpation Back/Spine/Pelvis: Other: unremarkable Skin: General skin exam: no rashes or lesions noted Neuro: General: patient oriented x3 Extrem: General: Yes normal to inspection Psych: Mental Status: mental status grossly normal Objective Data Active Medications Acetaminophen (Acetaminophen 325 Mg Tablet) 650 mg PO Q6H PRN PRN Reason: Pain, Mild (Pain Scale 1-3) Last Admin: 10/10/23 18:35 Dose: 650 mg Documented By: ITZEL Albuterol/Ipratropium (Albuterol/Iprat 2.5/0.5mg 3 Ml Ampul.Neb) 3 ml INHALE RQ4H WHILE AWAKE [facility] Last Admin: 10/12/23 08:02 Dose: 3 ml Documented By: JOSE LUIS Aripiprazole (Aripiprazole 10 Mg Tablet) 10 mg PO BEDTIME [facility] Last Admin: 10/11/23 20:38 Dose: 10 mg Documented By: JOHANNA Aripiprazole (Aripiprazole 30 Mg Tablet) 30 mg PO DAILY [facility] Last Admin: 10/12/23 08:10 Dose: 30 mg Documented By: MAHAD Artificial Tears (Artificial Tears 15 Ml Drops) 1 drop EYE-BOTH QID PRN PRN Reason: Dry Eyes Atorvastatin Calcium (Atorvastatin Calcium 40 Mg Tablet) 40 mg PO BEDTIME [facility] Last Admin: 10/11/23 20:38 Dose: 40 mg Documented By: JOHANNA Bisacodyl (Bisacodyl 10 Mg Supp.Rect) 10 mg [place] DAILY PRN PRN Reason: Constipation Cyanocobalamin (Cyanocobalamin (Vitamin B-12) 1,000 Mcg/Ml Vial) 1,000 mcg IM Q28D [facility] Dextrose (Dextrose 50 % 25 Gm/50 Ml Syringe) 25 gm IVPUSH Q15M PRN; Protocol PRN Reason: per Hypoglycemia Standing Ord. Enoxaparin Sodium (Enoxaparin Sodium 30 Mg/0.3 Ml Syringe) 30 mg SUBCUT Q24H [facility] Last Admin: 10/11/23 15:29 Dose: 30 mg Documented By: MAHAD Gabapentin (Gabapentin 300 Mg Capsule) 300 mg PO DAILY@0600 [facility] Last Admin: 10/12/23 06:04 Dose: 300 mg Documented By: JOHANNA Gabapentin (Gabapentin 400 Mg Capsule) 400 mg PO BEDTIME [facility] Last Admin: 10/11/23 20:38 Dose: 400 mg Documented By: JOHANNA Glucose (Glucose Gel 15 Gm Gel..Gram.) 15 gm PO Q15M PRN; Protocol PRN Reason: per Hypoglycemia Standing Ord. Piperacillin Sod/Tazobactam (Sod 4.5 gm/ Sodium Chloride) 100 mls @ 200 mls/hr IV Q8H [facility] Last Infusion: 10/12/23 10:21 Dose: Infused Documented By: MAHAD Furosemide 200 mg/ Sodium (Chloride) 100 mls @ 2.5 mls/hr IVCONT .Q24H [facility] Last Admin: 10/12/23 08:10 Dose: 5 mg/hr, 2.5 mls/hr Documented By: MHAAD Insulin Human Lispro (Insulin Lispro 100 Unit/Ml 3 Ml Vial) 0 unit SUBCUT QIDACHS [facility]; Protocol Last Admin: 10/12/23 08:06 Dose: Not Given Documented By: MAHAD Non-Admin Reason: No Insulin Coverage Lamotrigine (Lamotrigine 25 Mg Tablet) 50 mg PO DAILY [facility] Last Admin: 10/12/23 08:10 Dose: 50 mg Documented By: MAHAD Levothyroxine Sodium (Levothyroxine Sodium 112 Mcg Tablet) 112 mcg PO DAILY@0600 [facility] Last Admin: 10/12/23 06:04 Dose: 112 mcg Documented By: JOHANNA Lidocaine (Lidocaine 4 % Patch Adh..Patch) 2 patch TRANSDERMA DAILY PRN; Protocol PRN Reason: thigh pain Loperamide HCl (Loperamide Hcl 2 Mg Capsule) 2 mg PO QID PRN PRN Reason: Diarrhea Magnesium Hydroxide (Milk Of Magnesia 30 Ml Oral.Susp) 30 ml PO BEDTIME PRN PRN Reason: Laxative Effect Methylprednisolone Sodium Succinate (Methylprednisolone Sod Succ 125 Mg/2 Ml Vial) 60 mg IVPUSH Q8H [facility] Last Admin: 10/12/23 08:15 Dose: 60 mg Documented By: MAHAD Nifedipine (Nifedipine Er 90 Mg Tab.Er.24) 90 mg PO DAILY [facility] Last Admin: 10/12/23 08:10 Dose: 90 mg Documented By: MAHAD Nystatin (Nystatin Powder 15 Gm Bottle) 1 appl TOPICAL TID [facility]; Protocol Last Admin: 10/12/23 08:15 Dose: 1 appl Documented By: MAHAD Ondansetron HCl (Ondansetron Hcl 4 Mg/2 Ml Vial) 4 mg IVPUSH Q8H PRN PRN Reason: Nausea and Vomiting Senna (Sennosides 8.6 Mg Tablet) 17.2 mg PO BEDTIME PRN PRN Reason: Constipation Sodium Biphosphate/Sodium Phosphate (Sodium Phosphate,[place]-Dibasic 133 Ml Enema) 133 ml [place] DAILY PRN PRN Reason: Constipation Sodium Chloride (0.9 % Sodium Chloride Flush 3 Ml Syringe) 3 ml IVFLUSH QSHIFT [facility] Last Admin: 10/12/23 08:10 Dose: 3 ml Documented By: MAHAD Torsemide (Torsemide 20 Mg Tablet) 20 mg PO DAILY@1200 PRN; Protocol PRN Reason: WEIGHT GAIN OF 3 POUNDS OR MORE Last Admin: 10/11/23 04:14 Dose: 20 mg Documented By: JOHANNA Comments: okay to give now per MD Joseph Torsemide (Torsemide 20 Mg Tablet) 20 mg PO DAILY@1700 [facility]; Protocol Last Admin: 10/10/23 16:51 Dose: 20 mg Documented By: ITZEL Torsemide (Torsemide 20 Mg Tablet) 40 mg PO DAILY@0600 [facility] Last Admin: 10/11/23 04:14 Dose: 40 mg Documented By: JOHANNA Comments: okay to give now per MD Joseph Labs 10/12/23 06:01 10/12/23 06:01 Labs: Laboratory Results - last 24 hr 10/11/23 10/11/23 10/11/23 11:24 16:31 20:26 MCV MCH MCHC RDW Plt Count MPV Absolute Nucleated RBC Nucleated RBC % (auto) Anion Gap Estim Creat Clear Calc Estimated GFR POC Glucose 182 H 144 H 165 H Fasting Glucose Calcium 10/12/23 10/12/23 06:01 07:52 MCV 88.7 MCH 27.5 MCHC 31.0 RDW 15.7 Plt Count 173 MPV 9.4 Absolute Nucleated RBC 0.000 Nucleated RBC % (auto) 0.0 Anion Gap 18 Estim Creat Clear Calc 24.7 Estimated GFR 27 POC Glucose 119 H Fasting Glucose 128 H Calcium 8.9 D Microbiology Microbiology Results: Microbiology 10/06/23 14:48 Blood Culture - Final Blood - Venous No growth after 5 days. Assessment and Plan (1) Acute hypoxemic respiratory failure: Status: Acute (2) Pneumonia: Status: Acute (3) Positive blood culture: Status: Acute Plan 88M PMH type 2 diabetes, htn, hypothyroidism, moderate to severe , lumbar stenosis, lumbar ddd, ckd stage III, gout, gerd, schizoaffective disorder, unspecified dementia presented with acute hypoxemic respiratory failure. bilateral pneumonia with acute hypoxemic respiratory failure complicated by group b strep bacteremia chest ct shows bilateral lower lobe consolidations and RML infiltrate. (noted on CT chest in [facility] 09/20/23) CT also reported Groundglass opacities b/l possible chronic lung disease for OP follow up after resolution of current illness Continue IV zosyn hypoxia continues to worsen despite diuresis iv steroids duonebs ATC acute on chronic diastolic chf with severe continuous iv lasix check repeat cxr ?aspiration [employer] appreciated - ndd2, thins DM humalog sliding scale hold oral antihyperglycemics HTN continue nifedipine chronic low back pain continue gabapentin, lidocaine patch Hypothyroidism continue levothyroxine hyperlipidemia continue statin Chronic normocytic anemia h/h above transfusion threshold and consistent with baseline unspecified dementia with mood disturbance continue home meds DVT prophylaxis-Lovenox DNR/DNI/ no NIPPV - grave prognosis, family updated reason for continued hospitalization:hypoxia Quality Stroke Does the patient have a stroke diagnosis?: No VTE Prior VTE?: No VTE Risk Level:: Medical - moderate - high VTE Device Contraindication: Treatment Not Indicated VTE Drug Contraindication: N/A - Med Ordered
[2023-10-12 11:42] LABS: Glucose, Whole Blood 187 mg/dL (60-115)
[2023-10-12] MEDS: Insulin Lispro 100 UNIT/ML 3 ML VIAL SUBCUT (12:01)
[2023-10-12 16:10] LABS: Glucose, Whole Blood 137 mg/dL (60-115)
[2023-10-12] MEDS: Enoxaparin Sodium 30 MG/0.3 ML SYRINGE SUBCUT (16:16)
[2023-10-12] MEDS: Sennosides 8.6 MG TABLET 17.2 MG PO (17:21)
[2023-10-12 20:08] LABS: Strep Pneumo Ag urine Not Detected (Not Detected)
[2023-10-12] MEDS: Atorvastatin Calcium 40 MG TABLET PO (20:26)
[2023-10-12] MEDS: ARIPiprazole 10 MG TABLET PO (20:26)
[2023-10-12] MEDS: Gabapentin 400 MG CAPSULE PO (20:26)
[2023-10-12 21:28] LABS: Glucose, Whole Blood 151 mg/dL (60-115)
[2023-10-13] VITALS (12 sets, daily range): BP systolic 116–140; BP diastolic 55–64; PULSE 77–90; RESP 19–26; TEMP 36.2–36.8; O2SAT 82–95
[2023-10-13] MEDS: methylPREDNISolone Sod Succ 125 MG/2 ML VIAL 60 MG IVPUSH ×3 (01:51→18:09)
[2023-10-13 04:04] LABS: Legionella Ag Urine Not Detected (Not Detected)
[2023-10-13] MEDS: Levothyroxine Sodium 112 MCG TABLET PO (05:28)
[2023-10-13] MEDS: Gabapentin 300 MG CAPSULE PO (05:28)
[2023-10-13 07:09] LABS: Hematocrit 34.2 % (42.0-52.0); Hemoglobin 10.6 g/dl (14.0-18.0); Mean Corpuscular Hemoglobin 27.5 pg (27.0-33.0); Mean Corpuscular Volume 88.8 fL (80.0-98.0); Mean Platelet Volume 9.6 fL (9.4-12.4); Platelet Count 197 X10*3/uL (160-400); Red Blood Count 3.85 X10*6/uL (4.60-5.80); Red Cell Distribution Width 15.5 % (11.0-16.0); White Blood Count 9.4 X10*3/uL (4.8-10.8)
[2023-10-13 07:15] LABS: D Dimer High Sensitivity 255 NG/ML
[2023-10-13 07:32] LABS: Anion Gap 17 (12-20); Blood Urea Nitrogen 98 mg/dL (9-16); Calcium 8.6 mg/dL (8.4-10.2); Carbon Dioxide 27 mmol/L (22-29); Chloride 94 mmol/L (96-108); Creatinine Clr Calc Pharmacy 22.1; Estimated Glomerular Filt Rate 23; Glucose Fasting 162 mg/dL (60-99); Sodium 133 mmol/L (135-145)
[2023-10-13] MEDS: Albuterol/Iprat 2.5/0.5MG 3 ML AMPUL.NEB INHALE ×3 (08:07→15:38)
[2023-10-13 08:52] LABS: Glucose, Whole Blood 168 mg/dL (60-115)
--- NOTE | 2023-10-13 09:08 | HO.PM.IMPN ---
Subjective Subjective Date of Service: 10/13/23 Interval History: comfortable, wants to go home Physical Exam Vital Signs: Vital Signs: Last Vital Signs Temp 98.0 F 10/13/23 07:55 Pulse 87 10/13/23 08:07 Resp 21 H 10/13/23 08:07 BP 116/55 L 10/13/23 07:55 Pulse Ox 95 10/13/23 07:55 O2 Del Method Nasal Cannula, Hi gh Flow Nasal Bruno jud, Non-Rebreathe r Mask 10/13/23 07:55 O2 Flow Rate 40 10/13/23 07:55 FiO2 100 10/13/23 07:55 Oxygen Flow Rate 15 10/06/23 09:47 BMI result Body Mass Index 31.8 Const: General: comfortable and no acute distress Orientation/consciousness: patient oriented x3 HEENT: Other: Unremarkable Head: Yes normal to inspection Neck: Neck: Yes normal visual inspection Chest: Chest palpation & inspection: normal inspection of the chest Resp: Auscultation: wheezes and diminished lung sounds Cardio: Palpation: normal PMI Heart sounds: S1 normal heart sound present, S2 abnormal (Absent), no gallops, Murmur heart sound present systolic III/ and at the right sternal border and no rubs GI: Palpation (GI): Soft to palpation Back/Spine/Pelvis: Other: unremarkable Skin: General skin exam: no rashes or lesions noted Neuro: General: patient oriented x3 Extrem: General: Yes normal to inspection Psych: Mental Status: mental status grossly normal Objective Data Active Medications Acetaminophen (Acetaminophen 325 Mg Tablet) 650 mg PO Q6H PRN PRN Reason: Pain, Mild (Pain Scale 1-3) Last Admin: 10/10/23 18:35 Dose: 650 mg Documented By: ITZEL Albuterol/Ipratropium (Albuterol/Iprat 2.5/0.5mg 3 Ml Ampul.Neb) 3 ml INHALE RQ4H WHILE AWAKE [facility] Last Admin: 10/13/23 08:07 Dose: 3 ml Documented By: EDITH Aripiprazole (Aripiprazole 10 Mg Tablet) 10 mg PO BEDTIME [facility] Last Admin: 10/12/23 20:26 Dose: 10 mg Documented By: OZZY Aripiprazole (Aripiprazole 30 Mg Tablet) 30 mg PO DAILY [facility] Last Admin: 10/12/23 08:10 Dose: 30 mg Documented By: MAHAD Artificial Tears (Artificial Tears 15 Ml Drops) 1 drop EYE-BOTH QID PRN PRN Reason: Dry Eyes Atorvastatin Calcium (Atorvastatin Calcium 40 Mg Tablet) 40 mg PO BEDTIME [facility] Last Admin: 10/12/23 20:26 Dose: 40 mg Documented By: OZZY Bisacodyl (Bisacodyl 10 Mg Supp.Rect) 10 mg MS DAILY PRN PRN Reason: Constipation Cyanocobalamin (Cyanocobalamin (Vitamin B-12) 1,000 Mcg/Ml Vial) 1,000 mcg IM Q28D [facility] Dextrose (Dextrose 50 % 25 Gm/50 Ml Syringe) 25 gm IVPUSH Q15M PRN; Protocol PRN Reason: per Hypoglycemia Standing Ord. Enoxaparin Sodium (Enoxaparin Sodium 30 Mg/0.3 Ml Syringe) 30 mg SUBCUT Q24H [facility] Last Admin: 10/12/23 16:16 Dose: 30 mg Documented By: MAHAD Gabapentin (Gabapentin 300 Mg Capsule) 300 mg PO DAILY@0600 [facility] Last Admin: 10/13/23 05:28 Dose: 300 mg Documented By: OZZY Gabapentin (Gabapentin 400 Mg Capsule) 400 mg PO BEDTIME [facility] Last Admin: 10/12/23 20:26 Dose: 400 mg Documented By: OZZY Glucose (Glucose Gel 15 Gm Gel..Gram.) 15 gm PO Q15M PRN; Protocol PRN Reason: per Hypoglycemia Standing Ord. Piperacillin Sod/Tazobactam (Sod 4.5 gm/ Sodium Chloride) 100 mls @ 200 mls/hr IV Q8H [facility] Last Infusion: 10/12/23 23:10 Dose: Infused Documented By: OZZY Insulin Human Lispro (Insulin Lispro 100 Unit/Ml 3 Ml Vial) 0 unit SUBCUT QIDACHS [facility]; Protocol Last Admin: 10/12/23 20:53 Dose: Not Given Documented By: OZZY Non-Admin Reason: No Insulin Coverage Lamotrigine (Lamotrigine 25 Mg Tablet) 50 mg PO DAILY [facility] Last Admin: 10/12/23 08:10 Dose: 50 mg Documented By: MAHAD Levothyroxine Sodium (Levothyroxine Sodium 112 Mcg Tablet) 112 mcg PO DAILY@0600 [facility] Last Admin: 10/13/23 05:28 Dose: 112 mcg Documented By: OZZY Lidocaine (Lidocaine 4 % Patch Adh..Patch) 2 patch TRANSDERMA DAILY PRN; Protocol PRN Reason: thigh pain Loperamide HCl (Loperamide Hcl 2 Mg Capsule) 2 mg PO QID PRN PRN Reason: Diarrhea Magnesium Hydroxide (Milk Of Magnesia 30 Ml Oral.Susp) 30 ml PO BEDTIME PRN PRN Reason: Laxative Effect Methylprednisolone Sodium Succinate (Methylprednisolone Sod Succ 125 Mg/2 Ml Vial) 60 mg IVPUSH Q8H [facility] Last Admin: 10/13/23 01:51 Dose: 60 mg Documented By: OZZY Nifedipine (Nifedipine Er 90 Mg Tab.Er.24) 90 mg PO DAILY [facility] Last Admin: 10/12/23 08:10 Dose: 90 mg Documented By: MAHAD Nystatin (Nystatin Powder 15 Gm Bottle) 1 appl TOPICAL TID [facility]; Protocol Last Admin: 10/12/23 20:34 Dose: 1 appl Documented By: OZZY Ondansetron HCl (Ondansetron Hcl 4 Mg/2 Ml Vial) 4 mg IVPUSH Q8H PRN PRN Reason: Nausea and Vomiting Senna (Sennosides 8.6 Mg Tablet) 17.2 mg PO BEDTIME PRN PRN Reason: Constipation Last Admin: 10/12/23 17:21 Dose: 17.2 mg Documented By: MAHAD Sodium Biphosphate/Sodium Phosphate (Sodium Phosphate,Swisher-Dibasic 133 Ml Enema) 133 ml MS DAILY PRN PRN Reason: Constipation Sodium Chloride (0.9 % Sodium Chloride Flush 3 Ml Syringe) 3 ml IVFLUSH QSHIFT [facility] Last Admin: 10/12/23 20:33 Dose: Not Given Documented By: OZZY Non-Admin Reason: IV Running Torsemide (Torsemide 20 Mg Tablet) 20 mg PO DAILY@1200 PRN; Protocol PRN Reason: WEIGHT GAIN OF 3 POUNDS OR MORE Last Admin: 10/11/23 04:14 Dose: 20 mg Documented By: JOHANNA Comments: okay to give now per MD Joseph Torsemide (Torsemide 20 Mg Tablet) 20 mg PO DAILY@1700 [facility]; Protocol Last Admin: 10/10/23 16:51 Dose: 20 mg Documented By: ITZEL Torsemide (Torsemide 20 Mg Tablet) 40 mg PO DAILY@0600 [facility] Last Admin: 10/11/23 04:14 Dose: 40 mg Documented By: JOHANNA Comments: okay to give now per MD Joseph Labs 10/13/23 06:42 10/13/23 06:42 Labs: Laboratory Results - last 24 hr 10/06/23 10/12/23 10/12/23 20:47 11:38 15:44 MCV MCH MCHC RDW Plt Count MPV Absolute Nucleated RBC Nucleated RBC % (auto) D-Dimer High Sensitivty Anion Gap Estim Creat Clear Calc Estimated GFR POC Glucose 187 H 137 H Fasting Glucose Calcium Ur L.pneumophila Ag Not Detected Ur Strep pneumoniae Ag Not Detected 10/12/23 10/13/23 10/13/23 20:37 06:42 07:59 MCV 88.8 MCH 27.5 MCHC 31.0 RDW 15.5 Plt Count 197 MPV 9.6 Absolute Nucleated RBC 0.000 Nucleated RBC % (auto) 0.0 D-Dimer High Sensitivty 255 Anion Gap 17 Estim Creat Clear Calc 22.1 Estimated GFR 23 POC Glucose 151 H 168 H Fasting Glucose 162 H Calcium 8.6 Ur L.pneumophila Ag Ur Strep pneumoniae Ag Microbiology Microbiology Results: Microbiology 10/07/23 11:30 Blood Culture - Final Blood - Venous No growth after 5 days. 10/07/23 11:45 Blood Culture - Final Blood - Venous No growth after 5 days. Assessment and Plan (1) Acute hypoxemic respiratory failure: Status: Acute (2) Pneumonia: Status: Acute (3) Positive blood culture: Status: Acute Plan 88M PMH type 2 diabetes, htn, hypothyroidism, moderate to severe , lumbar stenosis, lumbar ddd, ckd stage III, gout, gerd, schizoaffective disorder, unspecified dementia presented with acute hypoxemic respiratory failure. bilateral pneumonia with acute hypoxemic respiratory failure complicated by group b strep bacteremia chest ct shows bilateral lower lobe consolidations and RML infiltrate. 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 - ndd2, thins DM humalog sliding scale hold oral antihyperglycemics HTN continue nifedipine chronic low back pain continue gabapentin, lidocaine patch Hypothyroidism continue levothyroxine hyperlipidemia continue statin Chronic normocytic anemia h/h above transfusion threshold and consistent with baseline unspecified dementia with mood disturbance continue home meds DVT prophylaxis-Lovenox DNR/DNI/ no NIPPV - grave prognosis reason for continued hospitalization:hypoxia Quality Stroke Does the patient have a stroke diagnosis?: No VTE Prior VTE?: No VTE Risk Level:: Medical - moderate - high VTE Device Contraindication: Treatment Not Indicated VTE Drug Contraindication: N/A - Med Ordered
[2023-10-13] MEDS: Piperacillin Sodium/Tazobactam 4.5 GM in 0.9 % Sodium Chloride 100 ML IV ×2 (10:22→19:47)
[2023-10-13] MEDS: NIFEdipine ER 90 MG TAB.ER.24 PO (10:24)
[2023-10-13] MEDS: lamoTRIgine 25 MG TABLET 50 MG PO (10:24)
[2023-10-13] MEDS: ARIPiprazole 30 MG TABLET PO (10:24)
[2023-10-13] MEDS: 0.9 % Sodium Chloride Flush 3 ML SYRINGE IVFLUSH ×2 (10:24→19:48)
[2023-10-13] MEDS: Nystatin Powder 15 GM BOTTLE 1 APPL TOPICAL ×2 (10:34→16:28)
--- NOTE | 2023-10-13 10:39 | HO.WOUND ---
Wound Consult: Initial 88yr old?[place] [facility] [place] See progress notes and H&P for detailed history.? Wound consult placed for Abdominal Folds, Buttocks and Rectum.? Patient agreeable to assessment and photo documentation.? Coccyx Etiology: MASD (Moisture Associated Skin Damage)??Present on Admission Wound Bed: red blanchable intact tissue within skin fold and mirrored edges - no pressure injury noted Drainage / Odor: None Edges: ? Mirrored no satellite lesions noted Aicha wound: ?Intact No Induration, Fluctuance or Warmth noted Pain: Denies Goals of Treatment: ? barrier cream to protect from moisture and friction Abdominal Skin Folds - MASD Intertrigo (Moisture Associated Skin Damage ) - pink blanchable intact tissue within skin fold and mirrored edges - no pressure injury noted - no open tissue noted Of note there is no evidence of fungal dermatitis at this time - however the patient has been on Antifungal powder (Nystatin) and this may explain why there is no evidence of fungal dermatitis no satellite lesions noted - provider to determine continued use of Nystatin powder. Recommend Barrier cream to coccyx rectal area to protect from friction and moisture and Interdry application to Abdominal skin folds to wick moisture away from skin folds to prevent development of skin breakdown. Recommendations: 1. Turn and Reposition every 2 hours and as needed for patient comfort.? Use pillows or wedges to support off loading positions. 2. Off Load all bony prominences with use of pillows and heel boots if needed.? Apply Preventative foams where needed. ? 3. Monitor for incontinence and moisture control, use barrier creams when needed for prevention and treatment. 4. Provide adequate and supplemental nutrition.? 5. Order or Continue low air loss mattress. 6. When applicable maintain blood glucose levels per Providers order. 7. Coccyx, buttocks and Perineal - Cleanse with PH balance spray or wipes, pat dry. ?Apply thin layer of barrier cream to red pink tissue. Reapply thin layer PRN after each episode of incontinence. 8. Abdominal Skin Folds - Routine Daily Cleansing - Tuck Interdry AG Sheet into skin fold to wick and translocate moisture away from skin fold.? Be sure to leave at least 2 inch of fabric exposed outside of skin fold.? Change when soiled. Re-consult wound care Nurse for wound deterioration or wound changes.
--- NOTE | 2023-10-13 11:01 | MHC.CM.PN ---
EMR REVIEWED, PT W/BILAT PNEMONIA AND STREP BACTEREMIA REMAINS ON HI FLOW O2, ID PENDING FOR FINAL ABX, CM WILL CONT TO FOLLOW DC NEEDS.
[2023-10-13 12:25] LABS: Glucose, Whole Blood 139 mg/dL (60-115)
--- NOTE | 2023-10-13 12:51 | MHC.SLORD ---
Speech Language Pathology Order Status: POWER HOUSE ENGINEER attempted to see pt for PO trials. Pt was sleepy, very lethargic and not waking to sternal rub. Plan to try again this afternoon.
--- NOTE | 2023-10-13 15:44 | MHC.SL.SWA ---
Speech Pathologist Impression: Risk of aspiration, oropharyngeal dysphagia Risk of Aspiration Due to: History of Pneumonia Reduced Cognition Dysphasia Diet Status: Downgrade liquids Liquid Consistency and Strategies for Safe Swallow: Liquid Intake Recommendation: [place] Thick Liquid Intake Strategies: Small Sips No Straws Solid Food Consistency: Dietary Recommendations: Grnd/Mech Altered (NDD2) Additional Modifications to Solid Foods: Add sauces and gravies and blend well. Provide pt with 1:1 assistance feeding. Assure that he is progressing with the meal, accessing food, eating at a slower pace, and not gulping or chain sipping liquids (may need specific cuing). Pt may need cuing to slow rate, take individual sips, and monitoring O2 saturation is recommended/preferred. Oral Medication Intake: Crushed with Puree Please contact the pharmacy regarding appropriate crushable or liquid drug formulations that are available whenever modified delivery is recommended. Compensatory Strategies and Precautions to be Taken for Safe Swallow: Sitting Upright (90 deg) Double Swallow No Straw Small Bites and Sips Rate of Ingestion Change Oral Check Avoid Specific Foods Supervision While Eating and Drinking for Safe Swallow: Total Assistance (1:1) Foods to Avoid: Mixed consistencies (solids in liquid), difficult to chew solids, too large pieces of food. Swallowing Recommended Treatments: Compens. Strategy Educat. Recommendation for Speech: Inpatient Speech Therapy Order Dispatcher Chief Clinican/Clinical Fellow: No Supervisory Statement: I have reviewed and agree with the student/clinical fellow's documentation: N/A Speech Language Pathologist: Patricia Rosas M.A., CCC-SPECIAL EFFECTS TECHNICIAN
[2023-10-13 16:29] LABS: Glucose, Whole Blood 172 mg/dL (60-115)
[2023-10-13] MEDS: Enoxaparin Sodium 30 MG/0.3 ML SYRINGE SUBCUT (16:29)
[2023-10-13] MEDS: Torsemide 20 MG TABLET PO (18:09)
[2023-10-13] MEDS: Insulin Lispro 100 UNIT/ML 3 ML VIAL SUBCUT (18:09)
[2023-10-13] MEDS: ARIPiprazole 10 MG TABLET PO (19:47)
[2023-10-13] MEDS: Atorvastatin Calcium 40 MG TABLET PO (19:47)
[2023-10-13] MEDS: Gabapentin 400 MG CAPSULE PO (19:48)
[2023-10-13 20:15] LABS: Glucose, Whole Blood 145 mg/dL (60-115)
--- NOTE | 2023-10-13 23:27 | PC.RT ---
pt sats continously below 85% as low as 80%. RN and hospitalist aware pt is maxed on HFNC 100% 50L with NRB. pt states he is no distress with no trouble breathing pt sleeping at this time will continue to monitor
[2023-10-14] MEDS: Nystatin Powder 15 GM BOTTLE 1 APPL TOPICAL (00:11)
[2023-10-14] MEDS: methylPREDNISolone Sod Succ 125 MG/2 ML VIAL IVPUSH (01:40)
[2023-10-14] MEDS: Albuterol/Iprat 2.5/0.5MG 3 ML AMPUL.NEB INHALE (01:40)
[2023-10-14 01:58] VITALS: PULSE 95; RESP 35; O2SAT 80
[2023-10-14 01:58] LABS: Basophils Percent Auto 0.1 % (0-2); Eosinophils Percent Auto 0.1 % (0-4); Hematocrit 35.3 % (42.0-52.0); Hemoglobin 10.9 g/dl (14.0-18.0); Imm Gran Abs Auto 0.08 X10*3/uL (0.00-0.03); Imm Gran Pct Auto 0.7 % (0.0-0.4); Lymphocytes Absolute Auto 0.2 X10*3/uL (1.2-4.9); Lymphocytes Percent Auto 1.7 % (20-40); MANUAL DIFF FLAG SCAN; Mean Corpuscular HGB Conc 30.9 g/dl (31.0-36.0); Mean Corpuscular Hemoglobin 27.1 pg (27.0-33.0); Mean Corpuscular Volume 87.8 fL (80.0-98.0); Mean Platelet Volume 9.1 fL (9.4-12.4); Monocytes Absolute Auto 0.3 X10*3/uL (0.1-1.2); Monocytes Percent Auto 2.8 % (2-11); Neutrophils Absolute Auto 10.5 x10*3/uL (2.0-8.3); Neutrophils Percent Auto 94.6 % (45-73); Platelet Count 219 X10*3/uL (160-400); Red Blood Count 4.02 X10*6/uL (4.60-5.80); Red Cell Distribution Width 15.7 % (11.0-16.0); SCAN SMEAR FLAG 1; White Blood Count 11.1 X10*3/uL (4.8-10.8)
[2023-10-14 02:08] LABS: Lactic Acid 0.6 mmol/L (0.5-2.0)
[2023-10-14 02:13] LABS: Alanine Aminotransferase 28 U/L (0-40); Alkaline Phosphatase 62 U/L (39-117); Anion Gap 16 (12-20); Aspartate Amino Transferase 26 U/L (5-37); Bilirubin Total 0.5 mg/dL (0.0-1.0); Blood Urea Nitrogen 107 mg/dL (9-16); Calcium 8.7 mg/dL (8.4-10.2); Carbon Dioxide 30 mmol/L (22-29); Chloride 95 mmol/L (96-108); Creatinine Clr Calc Pharmacy 22.9; Estimated Glomerular Filt Rate 24; Glucose Random 140 mg/dL (60-115); Magnesium 3.2 mg/dL (1.6-2.6); Potassium 4.8 mmol/L (3.3-5.1); Sodium 136 mmol/L (135-145); Total Protein 7.7 g/dL (6.5-8.0)
[2023-10-14 02:23] LABS: Troponin-I High Sensitivity 616.5 ng/L (<3.5-35.0)
[2023-10-14 02:35] LABS: B Type Natriuretic Peptide 351 pg/mL (<100)
[2023-10-14] MEDS: Furosemide 100 MG/10 ML VIAL 60 MG IVPUSH (02:42)
[2023-10-14 02:50] LABS: SLIDE REVIEW VERIFIED
--- NOTE | 2023-10-14 03:00 | PM.EVENT ---
Event Note Date of Service: 10/14/23 Event Note: 2:33 AM - contacted to notify patient's oxygen saturation continues to drop, now 76%. Blood pressure and heart rate are normal He has been on high-flow and non-rebreather mask (max). Patient was evaluated earlier. Lungs auscultation remarkable for bilateral expiratory wheezes and crackles. Patient is tachypneic and using accessory muscles. CXR obtained stat showed interval increase in extensive bilateral airspace opacities which may represent worsening edema and small bilateral pleural effusions. Blood workup significant for elevated troponin >600 and BNP is 351 (worse than prior). Hemoglobin stable and there is minimal leukocytosis. Lactic acid is normal Rapid response was activated. ICU team contacted. Treatment given: Oxygen therapy: High-flow + non-rebreather mask Solu-Medrol 125 mg IV Lasix 60 mg IV Bronchodilator therapy I did contact patient's nephew, Jonathan. He was updated about current Gregory condition. Nephew did confirm patient is DNR and DNI. Noninvasive ventilation was discussed with nephew as well but feels patient will benefit from therapy with IV opiate for comfort as well as oxygen therapy. Time Spent With Patient Time: Total time managing care of this patient today ____ minutes.
[2023-10-14] MEDS: HYDROmorphone HCl 1 MG/ML SYRINGE 0.5 MG IVPUSH ×4 (03:06→07:31)
[2023-10-14 03:09] VITALS: BP 138/71; PULSE 94; RESP 20; TEMP 36.8; O2SAT 80
[2023-10-14] MEDS: Piperacillin Sodium/Tazobactam 4.5 GM in 0.9 % Sodium Chloride 100 ML IV (03:10)
--- NOTE | 2023-10-14 06:21 | PM.EVENT ---
Event Note Date of Service: 10/14/23 Event Note: I did contact patient's nephew, Jonathan, again to update above his current condition. He was informed that Gregory, persists with severe respiratory distress and that his oxygen saturation is not improving despite receiving optimal therapy with supplemental oxygen, IV diuresis, IV antibiotics and steroids. Decision to switch Gregory to comfort measures only was made by nephew due to his poor prognosis. Time Spent With Patient Time: Total time managing care of this patient today ____ minutes.
[2023-10-14] MEDS: Furosemide 100 MG/10 ML VIAL 40 MG IVPUSH (06:32)
[2023-10-14 07:15] VITALS: BP 130/60; PULSE 96; RESP 16; TEMP 35.9; O2SAT 70
--- NOTE | 2023-10-14 09:05 | PM.DDS ---
Discharge Sum: Prov Provider Primary care physician: Mario Rocha MD Consults: 10/08/23 15:54 Consult to Wound Care Routine Reason for consultation: redness under abdominal folds,redness between buttocs and rectal area Has provider been notified: Yes 10/09/23 09:19 Consult to Pulmonology Routine Consulting Provider: [facility] [place] Pulmonology Services Reason for consultation: severe hypoxia, bilateral opacities worsening 10/09/23 16:04 Consult to Cardiology Routine Consulting Provider: [facility] [place] Cardiovascular Services Reason for consultation: severe Has provider been notified: Yes 10/14/23 06:16 Consult to General Store Manager Stat Comment: Discharge Sum: Diag Contributing Factors (1) Acute hypoxemic respiratory failure: (2) Pneumonia: (3) Positive blood culture: Discharge Sum: Summary Date and Time Date of admission: 10/06/23 15:13 Date of : 10/14/23 Time of : 08:50 Summary Details: from initial hpi: 88 year old male with hitory of non insulin dependent type 2 diabetes, htn, hypothyroidism, lumbar stenosis, lumbar ddd, ckd stage 3, gout, gerd, schizoaffective disorder, unspecified dementia who is a former smoker presented to the ED from [facility] for evaluation of dyspnea and hypoxia. The patient is a poor historian 2/2 to his dementia but does report dyspnea ongoing for several weeks. unknown sick contacts. No fevers, chills, cough, chest pain. No abd pain, n/v. Per EMS, on arrival, pt hypoxic in the 80s placed on 15L via non rebreather. On arrival to ED, pt weaned to 6L O2 via NC maintaining oximetry 92%. Vitals otherwise stable. No leukocytosis. Stable normocytic anemia. Renal function baseline. Lytes normal. BNP 121, trop below detectable limits. Negative for Flu, RSV, COVID19. Chest CT shows bilateral lower lobe consolidations with underlying small bilateral pleural effusions as well as patchy infiltrate RML. Groundglass opacities present in BUL and mid lobes r/t chronic lung disease. In the ED given 40mg IV lasix and started on empiric abx. hospital course: Patient was admitted for acute hypoxic respiratory failure due to bilateral pneumonia complicated by group B strep bacteremia and acute on chronic diastolic CHF with severe aortic stenosis with additional component of aspiration pneumonitis/pneumonia. He was treated with IV Zosyn, IV steroids, bronchodilators, IV diuresis. Patient's oxygen requirements steadily increased. He was placed on high flow and non-rebreather. For diabetes who was continued on insulin. For hypertension continue nifedipine. For hypothyroidism continued on Synthroid. For hyperlipidemia continue on statin. For unspecified dementia with mood disturbances he was at his baseline. Throughout most of hospitalization patient was asymptomatic despite significant hypoxia. His advanced directives were do not resuscitate, do not intubate, do not use noninvasive positive pressure ventilation. Overnight on 10/13/2023 patient became suddenly more hypoxic and started having signs of increased work of breathing and air hunger. Decision was made to transitioned to comfort measures only. Patient peacefully on 10/14/2023 at 08:50. Additional Data Attending physician: Ashish Dewey MD
== END 2023-10-14 08:50 | disposition expired | DRG 177 ==
LOC: HO.ED 14:54 → HO.EDOVER 15:29 → HO.S3 20:09 → HO.IMC 10-08 18:18
PROVIDERS: Internal Medicine; Student in an Organized Health Care Education/Training Program; Admitting Provider Physician Assistant; Emergency Provider Emergency Medicine; PCP Internal Medicine; Visit Provider Internal Medicine
DX: J69.0 Pneumonitis due to inhalation of food and vomit (principal); I50.33 Acute on chronic diastolic (congestive) heart failure; J96.01 Acute respiratory failure with hypoxia; I13.0 Hypertensive heart and chronic kidney disease with heart failure and stage 1 through stage 4 chronic kidney disease, or unspecified chronic kidney disease; F03.93 Unspecified dementia, unspecified severity, with mood disturbance; R78.81 Bacteremia; J18.9 Pneumonia, unspecified organism; B95.1 Streptococcus, group B, as the cause of diseases classified elsewhere; F20.9 Schizophrenia, unspecified; Z66 Do not resuscitate; E78.5 Hyperlipidemia, unspecified; I27.22 Pulmonary hypertension due to left heart disease; M54.59 Other low back pain; I35.0 Nonrheumatic aortic (valve) stenosis; G89.29 Other chronic pain; N18.30 Chronic kidney disease, stage 3 unspecified; D63.1 Anemia in chronic kidney disease; E03.9 Hypothyroidism, unspecified; E11.22 Type 2 diabetes mellitus with diabetic chronic kidney disease; Z20.822 Contact with and (suspected) exposure to COVID-19; Z79.84 Long term (current) use of oral hypoglycemic drugs; Z79.890 Hormone replacement therapy; Z79.899 Other long term (current) drug therapy
CPT/HCPCS: 0241U; 36415; 71045; 71250; 80048; 80053; 80076; 81001; 82565; 82803; 82947; 83605; 83735; 83880; 84484; 85025; 85027; 85379; 85610; 87040; 87147; 87205; 87449; 87640; 87641; 87899; 92526; 92610; 92950; 93005; 93306; 94640; 94799; 99285; C1758; J1170; J1650; J1940; J2543; J2930; J3370; Q9957

== ENCOUNTER → 2023-10-06 10:00 | Outpatient (BNV) | payer MEDICARE, SELFPAY | PROVIDERS: Emergency Provider Emergency Medicine; PCP Internal Medicine; Visit Provider Internal Medicine | DX: I44.0 Atrioventricular block, first degree (principal) | CPT/HCPCS: 93010 ==

== ENCOUNTER 2023-10-06 15:13 | Outpatient (BNV) | payer MEDICARE, SELFPAY | END 2023-10-09 07:00 | PROVIDERS: Admitting Provider Physician Assistant; Emergency Provider Emergency Medicine; PCP Internal Medicine; Visit Provider Internal Medicine | DX: I35.0 Nonrheumatic aortic (valve) stenosis (principal) | CPT/HCPCS: 93306 ==

== ENCOUNTER → 2023-10-06 15:13 | Outpatient (BNV) | payer MEDICARE, SELFPAY | PROVIDERS: Admitting Provider Physician Assistant; Emergency Provider Emergency Medicine; PCP Internal Medicine; Visit Provider Internal Medicine | DX: I35.0 Nonrheumatic aortic (valve) stenosis (principal); J96.01 Acute respiratory failure with hypoxia; I50.31 Acute diastolic (congestive) heart failure | CPT/HCPCS: 99223; 99233 ==

== ENCOUNTER → 2023-10-06 15:13 | Outpatient (BNV) | payer MEDICARE, SELFPAY | PROVIDERS: Admitting Provider Physician Assistant; Emergency Provider Emergency Medicine; PCP Internal Medicine; Visit Provider Internal Medicine Pulmonary Disease | DX: I35.0 Nonrheumatic aortic (valve) stenosis (principal); I27.20 Pulmonary hypertension, unspecified; J96.01 Acute respiratory failure with hypoxia | CPT/HCPCS: 99223; 99233 ==

== ENCOUNTER → 2023-10-06 15:13 | Outpatient (BNV) | payer MEDICARE, SELFPAY | PROVIDERS: Admitting Provider Physician Assistant; Emergency Provider Emergency Medicine; PCP Internal Medicine; Visit Provider Physician Assistant | DX: J96.01 Acute respiratory failure with hypoxia (principal); J18.9 Pneumonia, unspecified organism; R78.81 Bacteremia; Z51.5 Encounter for palliative care | CPT/HCPCS: 99223; 99233; 99238; 99499 ==